=== PATIENT | female | born 1960 | race American Indian/Alaskan Native ===

== ENCOUNTER → 2018-03-23 08:08 | Outpatient (CLI) | payer MEDICARE, MEDICAID, OTHER, SELFPAY ==
[2018-03-23 09:51] LABS: Add Manual Diff / Slide Review NO; Basophils Percent Auto 0.9 % (0-2); Eosinophils Percent Auto 4.1 % (2-4); Hematocrit 40.6 % (36-46); Hemoglobin 13.5 g/dL (12.0-16.0); Lymphocytes Percent Auto 31.4 % (25-40); Mean Corpuscular HGB Conc 33.4 % (30-36); Mean Corpuscular Hemoglobin 28.2 PG (26-34); Mean Corpuscular Volume 84.5 fL (80-100); Monocytes Percent Auto 6.3 % (3-14); Neutrophils Absolute Auto 5100 /uL (3000-5900); Neutrophils Percent Auto 57.3 % (50-75); Platelet Count 309 X10^3/uL (150-400); Red Cell Distribution Width 14.4 % (11.6-14.8); White Blood Cell Count 8.8 X10^3/uL (4.5-11.0)
[2018-03-23 10:13] LABS: Alanine Aminotransferase 24 IU/L (9-52); Albumin 4.1 g/dL (3.5-5.0); Albumin Globulin Ratio 1.1 (1.0-2.8); Alkaline Phosphatase 110 U/L (38-126); Aspartate Aminotransferase 15 IU/L (14-36); BUN Creatinine Ratio 22.5 (6-22); Bilirubin Total 0.9 mg/dL (0.2-1.3); Blood Urea Nitrogen 18 mg/dL (7-17); Calcium 9.3 mg/dL (8.4-10.2); Carbon Dioxide 28 mmol/L (22-32); Chloride 103 mmol/L (98-107); Cholesterol 104 mg/dL (140-199); Estimated Glomerular Filt Rate > 60.0 mL/min (>60); Globulin 3.6 g/dL (1.7-4.1); Glucose 200 mg/dL (70-100); HDL Cholesterol 40 mg/dL (40-60); HEMOLYSIS < 15 (0-50); LDL Cholesterol Calculated 38 mg/dL (<100); Potassium 4.6 mmol/L (3.4-5.1); Sodium 143 mmol/L (137-145); Total Protein 7.7 g/dL (6.3-8.2); Triglycerides 131 mg/dL (35-150)
[2018-03-23 10:15] LABS: Hemoglobin A1C% w Est Avg Glu 9.3 % (4.0-6.0)
== END ==
PROVIDERS: PCP Internal Medicine; Visit Provider Internal Medicine
DX: E11.9 Type 2 diabetes mellitus without complications (principal)
CPT/HCPCS: 36415; 80053; 80061; 83036; 85025

== ENCOUNTER → 2018-04-06 11:52 | Outpatient (CLI) | payer MEDICARE, MEDICAID, OTHER, SELFPAY ==
[2018-04-06 12:02] LABS: Bacteria Urine None Seen; RBC Urine None Seen (0-5/HPF); WBC Urine None Seen (0-5/HPF)
[2018-04-06 12:14] LABS: Appearance Urine UA CLEAR; Bilirubin Urine UA NEGATIVE (NEGATIVE); Color Urine UA YELLOW; Glucose Urine UA 2+ g/dL (Normal); Ketones Urine UA NEGATIVE (NEGATIVE); Leukocyte Esterase Urine UA NEGATIVE (NEGATIVE); Nitrite Urine UA Negative (Negative); Occult Blood Urine UA NEGATIVE (Negative); Protein Urine UA TRACE (Negative); Specific Gravity Urine UA 1.025 (1.000-1.035); Urobilinogen Urine UA 0.2 E.U./dL (0.2)
[2018-04-06 12:17] LABS: Add Manual Diff / Slide Review NO; Basophils Percent Auto 1.1 % (0-2); Hematocrit 41.7 % (36-46); Hemoglobin 13.6 g/dL (12.0-16.0); Lymphocytes Percent Auto 27.6 % (25-40); Mean Corpuscular HGB Conc 32.6 % (30-36); Monocytes Percent Auto 6.7 % (3-14); Neutrophils Absolute Auto 5100 /uL (3000-5900); Neutrophils Percent Auto 60.6 % (50-75); Platelet Count 342 X10^3/uL (150-400); Red Blood Cell Count 4.85 X10^6/uL (4.0-5.2); Red Cell Distribution Width 14.7 % (11.6-14.8); White Blood Cell Count 8.4 X10^3/uL (4.5-11.0)
[2018-04-06 12:20] LABS: Culture Indicated Urine Cult Not Indicated; Urine Comments Microscopic Normal
[2018-04-06 12:24] LABS: BUN Creatinine Ratio 23.3 (6-22); Blood Urea Nitrogen 21 mg/dL (7-17); Calcium 9.2 mg/dL (8.4-10.2); Carbon Dioxide 24 mmol/L (22-32); Chloride 104 mmol/L (98-107); Estimated Glomerular Filt Rate > 60.0 mL/min (>60); Glucose 145 mg/dL (70-100); HEMOLYSIS 44 (0-50); Potassium 4.9 mmol/L (3.4-5.1); Sodium 142 mmol/L (137-145)
[2018-04-06 12:41] LABS: Hemoglobin A1C% w Est Avg Glu 8.9 % (4.0-6.0)
== END ==
PROVIDERS: Family Provider Family Medicine; PCP Internal Medicine; Visit Provider Orthopaedic Surgery
DX: R73.09 Other abnormal glucose (principal); N39.9 Disorder of urinary system, unspecified; Z01.812 Encounter for preprocedural laboratory examination; Z01.818 Encounter for other preprocedural examination
CPT/HCPCS: 36415; 80048; 81001; 83036; 85025; 93005

== ENCOUNTER → 2018-07-06 14:18 | Outpatient (CLI) | payer MEDICARE, MEDICAID, OTHER, SELFPAY ==
[2018-07-06 14:55] LABS: Alanine Aminotransferase 23 IU/L (9-52); Albumin 4.2 g/dL (3.5-5.0); Albumin Globulin Ratio 1.3 (1.0-2.8); Alkaline Phosphatase 103 U/L (38-126); Aspartate Aminotransferase 16 IU/L (14-36); BUN Creatinine Ratio 16.7 (6-22); Bilirubin Total 0.7 mg/dL (0.2-1.3); Blood Urea Nitrogen 20 mg/dL (7-17); Calcium 9.2 mg/dL (8.4-10.2); Carbon Dioxide 24 mmol/L (22-32); Chloride 105 mmol/L (98-107); Cholesterol 157 mg/dL (140-199); Estimated Glomerular Filt Rate 46.1 mL/min (>60); Globulin 3.3 g/dL (1.7-4.1); Glucose 339 mg/dL (70-100); HDL Cholesterol 42 mg/dL (40-60); HEMOLYSIS < 15 (0-50); LDL Cholesterol Calculated 66 mg/dL (<100); Sodium 143 mmol/L (137-145); Total Protein 7.5 g/dL (6.3-8.2); Triglycerides 243 mg/dL (35-150)
== END ==
PROVIDERS: Visit Provider Internal Medicine
DX: E78.00 Pure hypercholesterolemia, unspecified (principal); I10 Essential (primary) hypertension; E11.65 Type 2 diabetes mellitus with hyperglycemia
CPT/HCPCS: 36415; 80053; 80061; 83036

== ENCOUNTER → 2018-07-27 12:33 | Outpatient (CLI) | payer MEDICARE, MEDICAID, OTHER, SELFPAY ==
[2018-07-27 12:44] LABS: Bacteria Urine None Seen; RBC Urine None Seen (0-5/HPF)
[2018-07-27 13:05] LABS: Add Manual Diff / Slide Review NO; Appearance Urine UA CLEAR; Basophils Percent Auto 0.9 % (0-2); Bilirubin Urine UA NEGATIVE (NEGATIVE); Color Urine UA YELLOW; Eosinophils Percent Auto 4.4 % (2-4); Glucose Urine UA 3+ g/dL (Normal); Hematocrit 43.7 % (36-46); Hemoglobin 14.3 g/dL (12.0-16.0); Ketones Urine UA NEGATIVE (NEGATIVE); Leukocyte Esterase Urine UA NEGATIVE (NEGATIVE); Lymphocytes Percent Auto 27.6 % (25-40); Mean Corpuscular HGB Conc 32.7 % (30-36); Mean Corpuscular Hemoglobin 28.7 PG (26-34); Mean Corpuscular Volume 87.7 fL (80-100); Neutrophils Absolute Auto 5200 /uL (3000-5900); Neutrophils Percent Auto 61.1 % (50-75); Nitrite Urine UA Negative (Negative); Occult Blood Urine UA NEGATIVE (Negative); Platelet Count 314 X10^3/uL (150-400); Protein Urine UA NEGATIVE (Negative); Red Blood Cell Count 4.99 X10^6/uL (4.0-5.2); Red Cell Distribution Width 14.2 % (11.6-14.8); Specific Gravity Urine UA 1.015 (1.000-1.035); Urobilinogen Urine UA 0.2 E.U./dL (0.2); White Blood Cell Count 8.5 X10^3/uL (4.5-11.0)
[2018-07-27 13:38] LABS: Squamous Epithelial Cell Urine 0-1 /HPF; WBC Urine 1-5/HPF (0-5/HPF)
[2018-07-27 13:39] LABS: Culture Indicated Urine Cult Not Indicated
[2018-07-27 14:35] LABS: BUN Creatinine Ratio 14.5 (6-22); Blood Urea Nitrogen 16 mg/dL (7-17); Calcium 9.3 mg/dL (8.4-10.2); Carbon Dioxide 25 mmol/L (22-32); Chloride 104 mmol/L (98-107); Glucose 335 mg/dL (70-100); HEMOLYSIS < 15 (0-50); Potassium 4.5 mmol/L (3.4-5.1); Sodium 142 mmol/L (137-145)
== END ==
PROVIDERS: PCP Internal Medicine; Visit Provider Orthopaedic Surgery
DX: Z01.818 Encounter for other preprocedural examination (principal); Z01.812 Encounter for preprocedural laboratory examination; N39.9 Disorder of urinary system, unspecified; R73.09 Other abnormal glucose
CPT/HCPCS: 36415; 80048; 81001; 85025

== ENCOUNTER 2018-08-01 15:31 | Inpatient (IN) | payer MEDICARE, MEDICAID, OTHER, SELFPAY ==
[2018-07-16 09:22] VITALS: BMI 49.6
[2018-07-31] VITALS (19 sets, daily range): BP systolic 93–146; BP diastolic 55–75; PULSE 83–111; RESP 16–24; TEMP 36.1–37.6; O2SAT 93–98; BMI 49.6
--- NOTE | 2018-07-31 06:00 | DI.RAD.S_ITS ---
PROCEDURE: XR KNEE LT 1TO2V INDICATIONS: prosthesis placement TECHNIQUE: 2 view(s) of the knee acquired. COMPARISON: [facility], MR, KNEE WITHOUT CONTRAST, 01/21/2018, 12:15. [facility], CR, XR KNEE STANDING BILATERAL, 01/09/2018, 12:41. FINDINGS: Bones: Patient is status post knee joint arthroplasty. Hardware components are in expected positions. Visualized bony structures are intact. Soft tissues: Overlying postoperative changes are noted. IMPRESSION: Expected position status post left TKA. Dictated by: Rob Estrella RRA Interpreted: Jazlyn Son MD on 07/31/2018 at 13:12 Approved by: Jazlyn Son MD, PhD on 07/31/2018 at 14:48
[2018-07-31] MEDS: LACTATED RINGERS 1,000 ML 42 ML IV ×2 (06:55→10:11)
[2018-07-31] MEDS: VANCOMYCIN 1,000 MG/200 ML FROZ.PIGGY 200 MG IV (07:00)
[2018-07-31] MEDS: ACETAMINOPHEN 325 MG TABLET 975 MG PO ×3 (07:18→21:26)
[2018-07-31] MEDS: PREGABALIN 75 MG CAPSULE PO (07:19)
[2018-07-31] MEDS: CELECOXIB 200 MG CAPSULE PO (07:19)
[2018-07-31] MEDS: INSULIN REGULAR 100 UNIT/ML 3 ML VIAL SUBCUT ×2 (07:45→09:25)
[2018-07-31] MEDS: CEFAZOLIN 2 GM/100 ML FROZ.PIGGY IV ×3 (07:55→23:59)
--- NOTE | 2018-07-31 08:40 | SUR.OPER ---
Supine on padded OR bed. Pillow under head, padded ramp under torso per anesthesia. Bilateral moni secured on padded armboards with extra foam positioners under arms<90 degree abduction. Safety belt across torso. Non-operative leg secured with tape over blanket over lower leg. Tape to secure abdomen away from operative site per surgeon. Operative leg secured in DeMayo/Jesse positioner. Foam padded brace at thigh of operative leg.
[2018-07-31] MEDS: BUPIVACAINE 0.25% W/ EPI VIAL 50 ML INJ (08:50)
[2018-07-31] MEDS: BUPIVACAINE LIPOSOME 266 MG/20 ML VIAL INJ (08:51)
[2018-07-31] MEDS: POVIDONE-IODINE 15 ML, SODIUM CHLORIDE 0.9% 250 ML TOP (08:51)
[2018-07-31] MEDS: HYDROMORPHONE 2 MG INJ 0.5 MG IV ×4 (10:46→11:25)
[2018-07-31] MEDS: fentaNYL 100 MCG/2 ML INJ 50 MCG IV ×2 (11:00→11:45)
[2018-07-31] MEDS: INSULIN ASPART 100 UNIT/ML 10ML VIAL SUBCUT (11:30)
--- NOTE | 2018-07-31 12:03 | SUR.PHASEI ---
REPORT CALLED TO RN ON FLOOR, PT SLEEPING QUIETLY, ICE PACK TO KNEE, LEG ELEVATED. PT TO ROOM HAND OFF OF CARE TO ROSALINO SANTAMARIA.
[2018-07-31] MEDS: LACTATED RINGERS 1,000 ML 125 ML IV ×2 (12:34→21:26)
--- NOTE | 2018-07-31 13:32 | PC.NURSE ---
Sophia was re'cvd post-op at 1210. She awoke briefly to state her pain was 10/10, then immediately fell back asleep. VSS, with note that she has remained slightly tachcardic (rate 111) consistently. O2 sat 97% on 3L/nc. Resp. unlabored and even. IV infusing. Her hemovac drain was unclamped at 1300 per orders. It is draining scant amt. bloody drng. Picco device intact with flashing green light. Willie bndg. L knee clean/dry/intact. Son Pepito at bedside supportive.
[2018-07-31] MEDS: OXYCODONE IR 5 MG TABLET PO ×2 (13:44→20:31)
--- NOTE | 2018-07-31 13:49 | PM.OP.1 ---
Operative Date/Time/Diagnoses Date of procedure: 07/31/18 Time of procedure: 08:10 Pre-op diagnosis: Severe left knee osteoarthritis Post-op diagnosis: same Procedure & Clinicians Procedure: Left total knee arthroplasty Same procedure as scheduled: Yes Indications: The patient has had progressively worsening left knee pain with radiographic changes consistent with arthritis. Non-operative management has failed and the patient has requested total knee replacement. The risks, benefits and alternatives to surgery were discussed with the patient prior to proceeding. Risks discussed included, but were not limited to, failure to relieve pain, stiffness, infection, nerve damage, deep venous thrombosis, pulmonary embolism, stroke, coma, heart attack, permanent paralysis and , as well as the potential need for eventual revision of the prosthetic. Surgeon: Noni Solo Assessment Analyst: Stephanie Riley Anesthesia Type: General Operative Notes Findings: Severe left knee osteoarthritis, good stability Closure Type: primary Specimen(s): none sent Implants & Drains: Solo and Nephew Luci BCS2 femur 4, tibia 3, +10 poly, 32x 7.5 patella Applied: drain(s) Estimated Blood Loss (mL): 250 Blood products transfused: none Tourniquet time (min): 92 Procedure in detail: The patient was seen in the pre-operative area, where the patient identified the left knee as the operative site and this was marked with my initials. The patient received pre-operative antibiotics, and was taken to the operating room and placed on the operative table in the supine position. After satisfactory anesthesia, a full time babysitter out was performed. The right leg was encircled with a tourniquet about the proximal thigh, and the leg was prepared from the toes to the tourniquet with ChloroPrep in the usual fashion and draped through sterile drapes. The leg was elevated and exsanguinated with Eschmark bandage and the tourniquet inflated to [250] mmHg pressure. The knee was approached through an approximately 18 cm incision centered over the patella and carried into the knee through a medial parapatellar arthrotomy. A portion of the medial and lateral meniscus was resected. Soft tissue was carefully mobilized around the patella the patella was measured with a caliper. Bone was resected from the patella and the patellar height was reconstituted with up an appropriate sized patellar component. A cover was then placed on the patella. A small amount of additional medial and lateral meniscus was resected. The visionare guide fit well to the distal femur. It looked like an appropriate distal femoral cut and the cut was made without difficulty. The rotation was assessed and the appropriate size femoral guide was placed on the distal femur and finishing cuts were made. There was no evidence of notching. The anterior, posterior and chamfer cuts were then made. The posterior osteophytes and soft tissues were then removed. The posterior capsule was injected with part of a mixture of 60 ml 0.25% Marcaine mixed with 20 ml Exparel for post operative pain control. The remainder of this mixture was injected into the capsule and subcutaneous tissues during cement curing. The tibia was prepared and the visionaire guide fit well to the distal tibia. The rotation was assessed. The patient was placed in extension residual medial and lateral meniscus as well as any residual bone was carefully resected. [No] additional tibia was resected. Hemostasis was achieved especially posteriorly. Additional local was injected into the posterior capsule. The extension gap was assessed and additional releases for gap balancing were performed as necessary. It was checked with the gap culturist. The femoral component was trial was placed and the notch was finished. Trial tibial and femoral components were then placed and the knee placed through a range of motion. Range of motion was [0-130], with good stability throughout the range. The trials were then removed, and the tibia was finished. The bone was prepared with pulsatile lavage, and dried with a sponge. Cement was applied and the final prosthetics placed. Excess cement was removed during and after cement curing. A brief Betadine soak was performed. After confirming there was no extruded cement posteriorly, the final tibial insert was placed. The knee was copiously irrigated and the tourniquet deflated. Hemostasis was obtained with the [Aquamantys system]. A drain was placed and brought out superolaterally. The capsule was closed with interrupted # 1 black braided suture. The subcutaneous layer was closed with barbed sutures, and the skin with a running 3-0 V-Lock suture and Surgical glue. An Aquacel Ag dressing was applied and the patient was taken to recovery having tolerated the procedure well. Complications: none Condition: stable Disposition: Acute Care Plan for aftercare: The patient will be maintained on a standard total knee replacement protocol with weight bearing as tolerated. The patient will receive aspirin and sequential compression devices for DVT prophylaxis. The patient will be discharged home when safe for the home environment.
--- NOTE | 2018-07-31 16:05 | PT.IPTN ---
Addendum entered and electronically signed by Marilyn Ortiz PT 07/31/18 16:31: this is to certify that I have reviewed this documentation and plan of care. Original Note: Current Diagnoses Unilateral primary osteoarthritis, left knee (07/31/18) Surgery Performed Operation Date: 07/31/18 07:45 Actual Procedures p Left Total Knee Arthroplasty(Left) - Noni Solo MD Physical Therapy Treatment Note M3 PT-IP Subjective Start: 07/31/18 15:25 Freq: NEEDED Status: Active Protocol: Document 07/31/18 15:27 (Rec: 07/31/18 15:28 [id number]) Subjective Physical Therapy Visit Type Notes Pt refuses PT today. Just too much pain per pt. informed pt that PT will come tomorrow morning. - Bhargav Solo, SPT
[2018-07-31] MEDS: hydrOXYzine pamoate 25 MG CAPSULE PO (16:13)
[2018-07-31] MEDS: IBUPROFEN 600 MG TABLET PO (16:14)
[2018-07-31] MEDS: INSULIN ASPART 100 UNIT/ML INSULN PEN SUBCUT ×2 (16:18→21:30)
[2018-07-31] MEDS: METFORMIN HCL 500 MG TABLET 1000 MG PO (21:26)
[2018-07-31] MEDS: ASPIRIN EC 81 MG TABLET PO (21:26)
[2018-07-31] MEDS: DOCUSATE 100 MG CAPSULE PO (21:26)
[2018-07-31] MEDS: ATORVASTATIN 20 MG TABLET PO (21:26)
[2018-08-01 00:12] VITALS: BP 137/69; PULSE 97; RESP 16; TEMP 36.9; O2SAT 96
--- NOTE | 2018-08-01 00:31 | PC.NURSE ---
Addendum entered by Timothy Artis R.N. 08/01/18 03:50: 0345: Pt states her pain level is down to 8/10. She is more relaxed and not agitated. Medicated for pain with Dilaudid 0.5mg IV at this time. Original Note: Addendum entered by Timothy Artis R.N. 08/01/18 01:45: 0150: Fresh ice to lt knee. Original Note: Addendum entered by Timothy Artis R.N. 08/01/18 01:44: 0145: Awake, assisted up to bedside commode. Pt anxious and unsteady on her feet. Voided large amt clear yellow urine. Medicated for pain with Oxycodone 5mg, Ibuprophen 600mg, and Vistaril 25mg, po. Original Note: Network Technology Instructor Note: 0000: Pt sleeping; respirations unlabored. SCDs on. IV in place in rt wrist, with LR infusing at 125cc/hr, and SL in lt hand. Dressing/jl wrap to lt knee cdi.
[2018-08-01] MEDS: IBUPROFEN 600 MG TABLET PO ×2 (01:40→10:03)
[2018-08-01] MEDS: hydrOXYzine pamoate 25 MG CAPSULE PO ×2 (01:40→08:05)
[2018-08-01] MEDS: OXYCODONE IR 5 MG TABLET PO (01:40)
[2018-08-01] MEDS: HYDROMORPHONE 0.5 MG INJ IV ×5 (02:35→12:51)
[2018-08-01 05:45] LABS: Hematocrit 36.8 % (36-46)
[2018-08-01] MEDS: LACTATED RINGERS 1,000 ML 125 ML IV (06:13)
--- NOTE | 2018-08-01 07:12 | PM.PNPO.1 ---
Subjective Date Patient Seen: 08/01/18 Time Patient Seen: 07:12 Interval history: Post op day 1 status post L total knee arthroplasty with Dr. Solo. Patient reports that her pain is a 9/10 with IV Dilaudid 0.5mg, 5mg oxycodone and 25mg Vistaril. She reports I feel like I've been hit by a truck. She reports experiencing severe muscle spasms in her L LE and body aches throughout since midnight. She reports the spasms have now resolved, but still having body aches and severe pain. She refused PT yesterday due to severe pain. She denies any fever, chills, SOB, chest pain, nausea or vomiting. Exam Vital Signs (past 8 hours): - 08/01/18 00:12 Temperature 98.4 F Pulse Rate 97 H Respiratory Rate 16 Blood Pressure 137/69 Pulse Oximetry 96 Oxygen Delivery Method Nasal Cannula Oxygen Flow Rate 3 Narrative Exam Narrative: Patient is laying in bed with no signs of acute distress. Dorsalis pedis and radial pulses 2+ and symmetric. Sensation to light touch intact in LE bilaterally. L knee dressing CDI. L LE hemovac intact with mild output. Muscle strength in dorsiflexion, plantarflexion and hydraulic controls technician adequate bilaterally. L calf is tender to palpation, otherwise calfs are soft and compressible bilaterally. Objective Labs Result Diagrams: 08/01/18 05:36 Labs: Laboratory Results - last 24 hr 08/01/18 05:36 Hgb 12.0 Hct 36.8 Assessment & Plan Post-op Postoperative Procedures Operation Date: 07/31/18 07:45 Actual Procedures Side Surgeon p Left Total Knee Arthroplasty Left Noni Solo MD Postoperative day: 1 Postoperative plan: routine post-op care Postoperative plan narrative: Start PT. Maintain on standard total knee replacement protocol with weight bearing as tolerated with PT. Continue DVT prophylaxis. Start on 10mg of oxycodone for pain. Time Spent With Patient less than 15 minutes Quality VTE Deep Vein Thrombosis/Pulmonary Embolism Present on Admission: No
--- NOTE | 2018-08-01 07:23 | P.PN_ITS ---
Subjective Date Patient Seen: 08/01/18 Time Patient Seen: 07:12 Interval history: Post op day 1 status post L total knee arthroplasty with Dr. Solo. Patient reports that her pain is a 9/10 with IV Dilaudid 0.5mg, 5mg oxycodone and 25mg Vistaril. She reports I feel like I've been hit by a truck . She reports experiencing severe muscle spasms in her L LE and body aches throughout since midnight. She reports the spasms have now resolved, but still having body aches and severe pain. She refused PT yesterday due to severe pain. She denies any fever, chills, SOB, chest pain, nausea or vomiting. Exam Vital Signs (past 8 hours): - 08/01/18 00:12 Temperature 98.4 F Pulse Rate 97 H Respiratory Rate 16 Blood Pressure 137/69 Pulse Oximetry 96 Oxygen Delivery Method Nasal Cannula Oxygen Flow Rate 3 Narrative Exam Narrative: Patient is laying in bed with no signs of acute distress. Dorsalis pedis and radial pulses 2+ and symmetric. Sensation to light touch intact in LE bilaterally. L knee dressing CDI. L LE hemovac intact with mild output. Muscle strength in dorsiflexion, plantarflexion and steward/stewardess night adequate bilaterally. L calf is tender to palpation, otherwise calfs are soft and compressible bilaterally. Objective Labs Result Diagrams: 08/01/18 05:36 Labs: Laboratory Results - last 24 hr 08/01/18 05:36 Hgb 12.0 Hct 36.8 Assessment & Plan Post-op Postoperative Procedures Operation Date: 07/31/18 07:45 Actual Procedures Side Surgeon p Left Total Knee Arthroplasty Left Noni Solo MD Postoperative day: 1 Postoperative plan: routine post-op care Postoperative plan narrative: Start PT. Maintain on standard total knee replacement protocol with weight bearing as tolerated with PT. Continue DVT prophylaxis. Start on 10mg of oxycodone for pain. Time Spent With Patient less than 15 minutes Quality VTE Deep Vein Thrombosis/Pulmonary Embolism Present on Admission: No
[2018-08-01 07:40] VITALS: BP 134/70; PULSE 83; RESP 96; TEMP 36.7; O2SAT 96
[2018-08-01 08:00] VITALS: O2SAT 96
[2018-08-01] MEDS: ACETAMINOPHEN 325 MG TABLET 975 MG PO ×3 (08:01→21:27)
[2018-08-01] MEDS: OXYCODONE IR 10 MG TABLET PO (08:01)
[2018-08-01] MEDS: ASPIRIN EC 81 MG TABLET PO ×2 (08:02→21:28)
[2018-08-01] MEDS: METFORMIN HCL 500 MG TABLET 1000 MG PO ×2 (08:02→21:28)
[2018-08-01] MEDS: LISINOPRIL 20 MG TABLET PO (08:02)
[2018-08-01] MEDS: DOCUSATE 100 MG CAPSULE PO (08:02)
[2018-08-01] MEDS: INSULIN ASPART 100 UNIT/ML INSULN PEN SUBCUT ×4 (09:59→21:28)
[2018-08-01 13:40] VITALS: BP 149/70; PULSE 91; RESP 20; O2SAT 96
--- NOTE | 2018-08-01 14:10 | PT.IIE ---
Current Diagnoses Unilateral primary osteoarthritis, left knee (07/31/18) Surgery Performed Operation Date: 07/31/18 07:45 Actual Procedures p Left Total Knee Arthroplasty(Left) - Noni Solo MD Surgical History (Last Updated 07/16/18 @ 09:33 by Luz Madera, RN) History of ankle surgery (Acute) History of delivery (Acute) Hx of hernia repair (Acute) S/P left oophorectomy (Acute) S/P tonsillectomy and adenoidectomy (Acute) Medical History (Last Updated 07/16/18 @ 09:33 by Luz Madera RN) Chronic back pain (Acute) History of GI bleed (Acute) History of migraine (Acute) Back pain (Chronic) DDD (degenerative disc disease), lumbar (Chronic) Diabetes mellitus (Chronic) Eczema (Chronic) Hyperlipidemia (Chronic) Hypertension (Chronic) Left knee pain (Chronic) Left shoulder pain (Chronic) Morbid obesity (Chronic) Osteoarthritis (Chronic) Postmenopausal (Chronic) Physical Therapy Inpatient Evaluation/Re-Eval M1 PT/OT-IP Prior Functional Status Start: 07/31/18 15:25 Freq: NEEDED Status: Active Protocol: Document 08/01/18 14:10 [facility] (Rec: 08/01/18 14:27 [facility] [id number]) Medical Review Prior Functional Status Medical History Reviewed Yes Diet/Fluid Consistency Regular Mobility and Gait indep. without device but occasionally using 4WW Activities of Daily Living and IADL's indep. Social History Household Members children Living Arrangements Apartment/Condo Number of Floors (Floors) One Floor Number of Stairs To Enter/Railing? no steps to enter/exit Home Equipment Front Wheel Walker Additional Social History Comment pt reports that her mother also lives in [place], and has a handicap accessible home she may stay in if her mother goes to SNF herself ( current @ [facility]). M2 PT-IP Current Condition Start: 07/31/18 15:25 Freq: NEEDED Status: Active Protocol: Document 08/01/18 14:10 RCC (Rec: 08/01/18 14:27 [facility] [id number]) Physical Therapy Current Condition Current Condition Evaluation Date 08/01/18 Treatment Diagnosis L TKA 07/31/18, impaired gait and mobility Onset Date 07/31/18 Weight Bearing Status Weight Bearing Status Weight Bear as Tolerated M3 PT-IP Subjective Start: 07/31/18 15:25 Freq: NEEDED Status: Active Protocol: Document 08/01/18 14:10 RCC (Rec: 08/01/18 14:27 [facility] [email or web address]) Subjective Physical Therapy Visit Type Type Initial Evaluation Visit Start Time 13:39 Visit Stop Time 14:10 Total Visit Minutes 31 Number of LABOR REPRESENTATIVE Visits 0 Physical Therapy Visit Comments Patient Comments pt agreeable to get OOB, wants to use BSC. Patient Goals decrease pain Therapy Pain Assessment Pain When Pain Assessed At Rest Location Left Knee Intensity 9 Scale Used Numeric (1 - 10) M4 PT-IP Mobility and Gait Start: 07/31/18 15:25 Freq: NEEDED Status: Active Protocol: Document 08/01/18 14:10 RCC (Rec: 08/01/18 14:27 [facility] [email or web address]) PT-Bed Mobility Assessment Supine to Sit Supine to Sit Moderate Assistance 1 Person Assistance Bedrails Sit to Supine Sit to Supine Minimal Assistance 1 Person Assistance Bedrails Scooting Scooting to Edge of Bed Minimal Assistance PT-Transfer Assessment Sit to and From Stand Sit to and from Stand Minimal Assistance 1 Person Assistance Equipment Transfer Assistive Device Gait Belt Front Wheeled Walker Transfers Transfer Destination Bed Toilet Transfer Technique Stand Step Pivot Transfer Ability Level of Assist Contact Guard Assistance Gait Assessment Gait Gait Assistance Required: Contact Guard Assist Distance (Feet) 10 Assistive Devices Assistive Device Gait Belt Front Wheeled Walker Gait Deviations General Gait Pattern Antalgic Decreased Stride Length Decreased Feet Clearance Flexed Trunk Step-to Gait Wide Based Gait Factors Limiting Gait Function Factors Limiting Gait Function Decreased Activity Tolerance Decreased Strength Limited Range of Motion Pain Comments Gait Comments Gait x10 ft in room with FWW, transfer to [facility] (had BM, APRON MAN assisted with toileting care), transfer back to bed. PT-Balance Assessment Sitting Balance and Reactions Static Sitting Balance Ability Good Dynamic Sitting Balance Ability Good Standing Balance and Reactions Static Standing Balance Ability Good Dynamic Standing Balance Ability Fair Device Used FWW M5 PT-IP Objective Assessments Start: 07/31/18 15:25 Freq: NEEDED Status: Active Protocol: Document 08/01/18 14:10 RCC (Rec: 08/01/18 14:27 [facility] [email or web address]) Orientation Orientation/Cognition Level of Alertness Alert Orientation Name Age Birthday Month Date Year Day of Week Place Situation Language Function Ability No Deficits Noted Safety Awareness Understands Safety Issues Memory Description No Deficits Noted Gross Range of Motion Lower Extremity ROM Assessment Left Impaired Impairments 5-75 degrees L knee Strength Lower Extremity Strength Assessment Left Impaired Hip flexion (unable to perform indep. SLR due to pain) Knee flexion 3/5, extension 3/5 on the L M6 PT-IP Treatment Start: 07/31/18 15:25 Freq: NEEDED Status: Active Protocol: Document 08/01/18 14:10 RCC (Rec: 08/01/18 14:27 RCC [email or web address]) Physical Therapy Treatment Exercises Exercises Ankle Pumps Quad Sets Heel Slides Education Education Provided Precautions Weight Bearing Status Post-Op Packet M7 PT-IP Assessment and Plan Start: 07/31/18 15:25 Freq: NEEDED Status: Active Protocol: Document 08/01/18 14:10 RCC (Rec: 08/01/18 14:27 RCC [email or web address]) PT Summary Assessment and Plan Potential Rehabilitation Potential Good Status of Condition at Evaluation Evolving Summary Impairments Pain ROM Strength Balance Bed Mobility Transfers Gait Activity Tolerance Assessment Summary POD #1 L TKA. Attempted PT multiple times this date, but pt with uncontrollable diarrhea as well as pain level extremely high. She was able to get OOB, ambulate 10 ft and transfer to/from the BS with 1 assist. She does require manual assistance to control her LLE due to pain and weakness. She was a very compliant and willing patient, motivated to mobilize but notes that pain is too high to perform more mobility today. Expect pt to continue to progress, pain control needs to be improved, and expect slower than initially expected recovery due to pain and other co-morbidities. Pt will need assistance if she is to go home as well as a w/c. She cannot ambulate safe household distances yet, and may require SNF rehabilitation upon d/c if she is unable to do so. Goals Bed Mobility Goal Standby Assistance Transfer Goal Standby Assistance Gait Goal Standby Assistance Gait Distance 150 Frequency of Treatment Frequency Of Treatment Twice a Day Treatment Plan Physical Therapy Treatment Plan Bed Mobility Training Transfer Training Gait Training Therapeutic Exercise Balance Retraining Post Op Education Discharge Planning Hot or Cold Pack Neuromuscular Re-ed Recommendations To Nursing Amount of Assist Needed 2 Person Assist Discharge Recommendations PT Discharge Recommendations SNF Rehab Other Discharge Recommendations SNF vs. home with assist, needs further assessment. Equipment Needed for Home Before manual w/c, FWW, BSC if to go Discharge home
[2018-08-01] MEDS: hydrOXYzine pamoate 25 MG CAPSULE 50 MG PO ×2 (14:14→21:32)
[2018-08-01] MEDS: HYDROMORPHONE 2 MG TABLET PO ×3 (14:14→19:29)
[2018-08-01 15:30] VITALS: BP 136/60; PULSE 96; RESP 18; TEMP 36.8; O2SAT 100
--- NOTE | 2018-08-01 16:03 | PC.NURSE ---
Patient having pain management issues throughout the shift, along with some anxiety. Tearful at times. Attempted increased dose of oxycondone 10mg as ordered by NELY MCKAY, without relief. Patient then started having loose stools, using bedpan, which she says increased her pain to move around. Frequent assistance with repositioning and new ice packs applied. Used IV dilaudid as ordered x 2, without effect per patient. Patient complaining of spasms and tightening. 1320 Dr. Jackson notified of patient continued complaints, order for dilaudid po prn received along with increased dosing of vistaril. Patient reassured frequently, and encouraged to use alternative relaxation techniques, ankle waves, and distraction along with the ice and medications. SLIV, tolerating meals. Declined to get up with P.T. today due to pain. Hemovac in place, compressed, draining serosangenous fluid. HUAN dressing intact with YURIY wrap in place. Bed alarm on for safety, with call light within reach.
--- NOTE | 2018-08-01 16:32 | CM.IDA ---
Discharge Planning/Care Management CM Discharge Assessment Start: 08/01/18 16:27 Freq: Status: Active Protocol: Document 08/01/18 16:28 CATHIE (Rec: 08/01/18 16:32 CATHIE [id number]) Discharge Planning Assessment Assigned [employer] Operator RYANNE Vargas DPOA/Assigned Designee Name Krystle Tong, dtr/Pepito Maya, son Contact Information [phone], Advance Directives? No: Declines further information History Provided By Patient Prior Living Arrangements Apartment/Condo Household Members children Type of transporation used prior to Relies on Others admit Independent with ADL's Yes Is patient alert and oriented? Yes Barriers to Discharge Yes Comment Pt may require SNF per PT, pt' s mom is at [facility] and pt was initially planning on DCing home to her mother's handicap friendly home but may not be able to do that now. Assess for SNF. Medicare/Medicaid. Additional Comment Likely need SNF. Review Status In Process Pre-Anesthesia Assessment Start: 07/13/18 13:45 Freq: Status: Complete Protocol: Document 07/16/18 09:22 [email or web address] (Rec: 07/13/18 13:54 COREYJ [id number])
[2018-08-01 19:49] VITALS: BP 143/73; PULSE 92; RESP 18; TEMP 37.1; O2SAT 98
[2018-08-01] MEDS: ATORVASTATIN 20 MG TABLET PO (21:28)
--- NOTE | 2018-08-01 22:13 | PC.NURSE ---
1500- assumed care of pt,. pt crying and lashing out. pt has family in room. Pt asking for pain medicine however it was just administered. discussed some non medicating pain reduction options and pt tried them. Pt lays in bed, refusing to get oob for toileting. Pt compliant but is very anxious. Pt has great bed mobility and is able to pull self up in ,bed one pillow under knee and ice packs applied. 1999- pt medicated. has been able to doze of and sleep a bit. did receive insulin. Pt compliant. given prns. will continue to monitor. 2099- jl wrap had blood on it. rewrapped hvc drain tubing pulled at dressing and reinforced. pt tolerated poorly. will continue to monitor. bed alarm on.
[2018-08-02] VITALS (7 sets, daily range): BP systolic 122–147; BP diastolic 63–74; PULSE 92–102; RESP 15–24; TEMP 36.4–36.9; O2SAT 92–96
[2018-08-02] MEDS: HYDROMORPHONE 2 MG TABLET PO ×6 (00:37→18:09)
[2018-08-02] MEDS: hydrOXYzine pamoate 25 MG CAPSULE 50 MG PO ×3 (04:03→18:14)
[2018-08-02] MEDS: IBUPROFEN 600 MG TABLET PO ×2 (07:43→18:14)
[2018-08-02] MEDS: LISINOPRIL 20 MG TABLET PO (08:03)
[2018-08-02] MEDS: METFORMIN HCL 500 MG TABLET 1000 MG PO ×2 (08:03→20:28)
[2018-08-02] MEDS: ASPIRIN EC 81 MG TABLET PO ×2 (08:03→20:28)
[2018-08-02] MEDS: ACETAMINOPHEN 325 MG TABLET 975 MG PO ×3 (08:03→20:27)
[2018-08-02] MEDS: INSULIN ASPART 100 UNIT/ML INSULN PEN SUBCUT ×4 (08:07→20:28)
--- NOTE | 2018-08-02 10:19 | PM.PNPO.1 ---
Subjective Date Patient Seen: 08/02/18 Time Patient Seen: 10:20 Interval history: The patient reports significant pain control difficulties. Minimal progress was made with physical therapy yesterday. Exam Vital Signs (past 8 hours): - 08/02/18 04:08 08/02/18 08:00 08/02/18 08:03 Temperature 98.2 F 98.4 F Pulse Rate 102 H 98 H 98 H Respiratory Rate 21 20 Blood Pressure 139/71 147/74 H 147/74 H Pulse Oximetry 93 94 Oxygen Delivery Method Room Air Oxygen Flow Rate 0 Narrative Exam Narrative: Left lower extremity wound is dressed with no significant drainage on the bandage. Calf is soft. Light touch and motion are intact in the left lower extremity. Objective Labs Result Diagrams: 08/01/18 05:36 Assessment & Plan Post-op Postoperative Procedures Operation Date: 07/31/18 07:45 Actual Procedures Side Surgeon p Left Total Knee Arthroplasty Left Noni Solo MD Postoperative day: 2 Postoperative status: doing well and marginal pain control Postoperative status narrative: The patient is postoperative day 2 status post left total knee replacement. She has had marginal pain control. She has a mild acute post hemorrhagic anemia. This is not unanticipated with a total knee replacement. Postoperative plan: routine post-op care and ambulate Postoperative plan narrative: We will discontinue her drain today. We will continue physical therapy. We had a discussion today regarding postoperative pain after knee replacement. I have reassured her that the pain she is experiencing is normal and that she need not become anxious about it. We have talked about effective pain management strategies. Time Spent With Patient less than 15 minutes Quality VTE Deep Vein Thrombosis/Pulmonary Embolism Present on Admission: No
--- NOTE | 2018-08-02 11:58 | PT.IPTN ---
Current Diagnoses Unilateral primary osteoarthritis, left knee (07/31/18) Surgery Performed Operation Date: 07/31/18 07:45 Actual Procedures p Left Total Knee Arthroplasty(Left) - Noni Solo MD Physical Therapy Treatment Note M2 PT-IP Current Condition Start: 07/31/18 15:25 Freq: NEEDED Status: Active Protocol: Document 08/02/18 11:58 [facility] (Rec: 08/02/18 12:05 [facility] [id number]) Physical Therapy Current Condition Current Condition Evaluation Date 08/01/18 Treatment Diagnosis L TKA 07/31/18, impaired gait and mobility Onset Date 07/31/18 Weight Bearing Status Weight Bearing Status Weight Bear as Tolerated M3 PT-IP Subjective Start: 07/31/18 15:25 Freq: NEEDED Status: Active Protocol: Document 08/02/18 11:58 [facility] (Rec: 08/02/18 12:05 [facility] [id number]) Subjective Physical Therapy Visit Type Type Treatment Note Visit Start Time 11:35 Visit Stop Time 11:58 Total Visit Minutes 23 Number of FACEPIECE LINE SUPERVISOR Visits 0 Physical Therapy Visit Comments Patient Comments Pt notes she was OOB earlier today to chair for 2 hrs, pain is still very high Therapy Pain Assessment Location Left Knee Intensity 8 Scale Used Numeric (1 - 10) M4 PT-IP Mobility and Gait Start: 07/31/18 15:25 Freq: NEEDED Status: Active Protocol: Document 08/02/18 11:58 [facility] (Rec: 08/02/18 12:05 [facility] [id number]) PT-Bed Mobility Assessment Supine to Sit Supine to Sit Moderate Assistance 1 Person Assistance Head of Bed Elevated Bedrails Sit to Supine Sit to Supine Minimal Assistance 1 Person Assistance Bedrails PT-Transfer Assessment Sit to and From Stand Sit to and from Stand Contact Guard Assistance 1 Person Assistance Equipment Transfer Assistive Device Gait Belt Front Wheeled Walker Transfers Transfer Destination Bed Transfer Technique Stand Step Pivot Transfer Ability Level of Assist Contact Guard Assistance Gait Assessment Gait Gait Assistance Required: Contact Guard Assist Distance (Feet) 15 Assistive Devices Assistive Device Gait Belt Front Wheeled Walker Gait Deviations General Gait Pattern Antalgic Decreased Stride Length Decreased Feet Clearance Flexed Trunk Step-to Gait Factors Limiting Gait Function Factors Limiting Gait Function Decreased Activity Tolerance Decreased Strength Limited Range of Motion Pain M5 PT-IP Objective Assessments Start: 07/31/18 15:25 Freq: NEEDED Status: Active Protocol: Document 08/01/18 14:10 [facility] (Rec: 08/01/18 14:27 [facility] [id number]) Orientation Orientation/Cognition Level of Alertness Alert Orientation Name Age Birthday Month Date Year Day of Week Place Situation Language Function Ability No Deficits Noted Safety Awareness Understands Safety Issues Memory Description No Deficits Noted Gross Range of Motion Lower Extremity ROM Assessment Left Impaired Impairments 5-75 degrees L knee Strength Lower Extremity Strength Assessment Left Impaired Hip flexion (unable to perform indep. SLR due to pain) Knee flexion 3/5, extension 3/5 on the L M6 PT-IP Treatment Start: 07/31/18 15:25 Freq: NEEDED Status: Active Protocol: Document 08/02/18 11:58 [facility] (Rec: 08/02/18 12:05 [facility] [id number]) Physical Therapy Treatment Exercises Exercises Ankle Pumps Gluteal Sets Quad Sets Heel Slides Education Education Provided Precautions Weight Bearing Status Post-Op Packet M7 PT-IP Assessment and Plan Start: 07/31/18 15:25 Freq: NEEDED Status: Active Protocol: Document 08/02/18 11:58 [facility] (Rec: 08/02/18 12:05 [facility] [id number]) PT Summary Assessment and Plan Summary Assessment Summary POD #2 L TKA. Pt with increased pain in WB, limited knee flexion to the point where she is unable to allow her L knee to bend in seated position (although likely increased pain due to pt's legs being too short to make contact with floor), therefore she supports the L knee with the R foot hooked underneath. She ambulated 15 ft with increased pain, decreased knee flexion throughout. Overall, pt is able to mobilize slowly, and requires one assist to get in/out of bed and for LLE support due to pain. She was encouraged to continue her post-op exercises to increase ROM and strength. Pt is not safe to return home at this time, as she is not able to ambulate safe houshold distances and she will not have assistance at home due to family having to work. Goals Bed Mobility Goal Standby Assistance Transfer Goal Standby Assistance Gait Goal Standby Assistance Gait Distance 150 Frequency of Treatment Frequency Of Treatment Twice a Day Treatment Plan Other Recommendations and Next Treatment post-op TKA exercises, gait, Focus mobility. Recommendations To Nursing Amount of Assist Needed 2 Person Assist Discharge Recommendations PT Discharge Recommendations SNF Rehab Other Discharge Recommendations SNF vs. home with assist, needs further assessment. Equipment Needed for Home Before manual w/c, FWW, BSC if to go Discharge home
--- NOTE | 2018-08-02 12:33 | PC.NURSE ---
Patient doing better today, able to mobilize a little easier but still requiring assistance. Using walker and BSC, agreed to sit up in the chair for breakfast this morning. Hemovac drain dc'd and gauze with tegaderm placed, patient tolerated well. Call light within reach. continue to follow.
[2018-08-02] MEDS: ONDANSETRON 4 MG/2 ML INJ IV (13:00)
--- NOTE | 2018-08-02 13:05 | PC.NURSE ---
GUT DROPPER reported patient had episode of emesis. Patient states after she ate lunch she became naseaous and threw up, states she is now feeling better. IV zofran given along with ice chips per her request. Call light within reach.
--- NOTE | 2018-08-02 13:15 | CM.DPC ---
DCP/continued: Reviewed chart. Spoke with therapy in AM rounds. Therapy confirmed that current recommendation is SNF when medically stable. MANAGER CARDIOVASCULAR met with patient explained CM/SW role. Patient alert and oriented during visit. Patient agreeable to SNF stay but unsure on which facility is going to be her first choice. During interview patient requesting bag because of nausea. MANAGER CARDIOVASCULAR provided patient to bag and she began to vomit. FOREST FIRE WARDEN obtained and RN notified. MANAGER CARDIOVASCULAR left contracted SNF list with patient and notified patient that CM steam press operator would check back with patient tomorrow for SNF choice. Patient in agreement. P: Anticipate SNF when medically stable. SNF list left with patient in room. Patient with n/v during visit and unsure which facility is her first choice. RYANNE Pretty
--- NOTE | 2018-08-02 13:30 | PC.NURSE ---
patient sleeping soundly at this time.
--- NOTE | 2018-08-02 16:30 | PT.IPTN ---
Current Diagnoses Unilateral primary osteoarthritis, left knee (07/31/18) Surgery Performed Operation Date: 07/31/18 07:45 Actual Procedures p Left Total Knee Arthroplasty(Left) - Noni Solo MD Physical Therapy Treatment Note M2 PT-IP Current Condition Start: 07/31/18 15:25 Freq: NEEDED Status: Active Protocol: Document 08/02/18 16:30 [facility] (Rec: 08/02/18 18:01 [facility] [id number]) Physical Therapy Current Condition Current Condition Evaluation Date 08/01/18 Treatment Diagnosis L TKA 07/31/18, impaired gait and mobility Onset Date 07/31/18 Weight Bearing Status Weight Bearing Status Weight Bear as Tolerated M3 PT-IP Subjective Start: 07/31/18 15:25 Freq: NEEDED Status: Active Protocol: Document 08/02/18 16:30 [facility] (Rec: 08/02/18 18:01 [facility] [email or web address]) Subjective Physical Therapy Visit Type Type Treatment Note Visit Start Time 16:12 Visit Stop Time 16:30 Total Visit Minutes 18 Number of CORROSION CONTROL TECHNICIAN Visits 0 Physical Therapy Visit Comments Patient Comments Pt does not think she can manage at home; she reports slight better pain control. Therapy Pain Assessment Pain When Pain Assessed During Mobility Pain Present Pain Present Pain Reported Location Left Knee Intensity 7 Scale Used Numeric (1 - 10) M4 PT-IP Mobility and Gait Start: 07/31/18 15:25 Freq: NEEDED Status: Active Protocol: Document 08/02/18 16:30 [facility] (Rec: 08/02/18 18:01 [facility] [id number]) PT-Bed Mobility Assessment Supine to Sit Supine to Sit Minimal Assistance 1 Person Assistance Bedrails Scooting Scooting to Edge of Bed Contact Guard Assistance PT-Transfer Assessment Sit to and From Stand Sit to and from Stand Minimal Assistance 1 Person Assistance Use of Upper Extremities Equipment Transfer Assistive Device Gait Belt Front Wheeled Walker Transfers Transfer Destination Chair Transfer Technique Stand Step Pivot Transfer Ability Level of Assist Contact Guard Assistance 1 Person Assistance Use of Upper Extremities Gait Assessment Gait Gait Assistance Required: Contact Guard Assist 1 Person Assist Distance (Feet) 20 Assistive Devices Assistive Device Gait Belt Front Wheeled Walker Gait Deviations General Gait Pattern Antalgic Decreased Stride Length Decreased Feet Clearance Flexed Trunk Step-to Gait Factors Limiting Gait Function Factors Limiting Gait Function Decreased Activity Tolerance Decreased Strength Limited Range of Motion Pain Poor Balance M5 PT-IP Objective Assessments Start: 07/31/18 15:25 Freq: NEEDED Status: Active Protocol: Document 08/01/18 14:10 [facility] (Rec: 08/01/18 14:27 [facility] [id number]) Orientation Orientation/Cognition Level of Alertness Alert Orientation Name Age Birthday Month Date Year Day of Week Place Situation Language Function Ability No Deficits Noted Safety Awareness Understands Safety Issues Memory Description No Deficits Noted Gross Range of Motion Lower Extremity ROM Assessment Left Impaired Impairments 5-75 degrees L knee Strength Lower Extremity Strength Assessment Left Impaired Hip flexion (unable to perform indep. SLR due to pain) Knee flexion 3/5, extension 3/5 on the L M6 PT-IP Treatment Start: 07/31/18 15:25 Freq: NEEDED Status: Active Protocol: Document 08/02/18 16:30 [facility] (Rec: 08/02/18 18:01 [facility] [id number]) Physical Therapy Treatment Exercises Exercises Ankle Pumps Seated Knee Flexion/Extension Knee ROM Measurement 5-80 M7 PT-IP Assessment and Plan Start: 07/31/18 15:25 Freq: NEEDED Status: Active Protocol: Document 08/02/18 16:30 [facility] (Rec: 08/02/18 18:01 [facility] [email or web address]) PT Summary Assessment and Plan Summary Progress Towards Goals Slow Progress due to Pain Assessment Summary POD #2 L TKA. Pt able to increase her knee flexion with seated flexion activity with manual assist from PT. She requires assistance with LLE management and is not ambulating safe household distances. Goals Bed Mobility Goal Standby Assistance Transfer Goal Standby Assistance Gait Goal Standby Assistance Gait Distance 150 Frequency of Treatment Frequency Of Treatment Twice a Day Treatment Plan Other Recommendations and Next Treatment post-op TKA exercises, gait, Focus mobility. Recommendations To Nursing Amount of Assist Needed 1 Person Assist Discharge Recommendations PT Discharge Recommendations SNF Rehab Equipment Needed for Home Before manual w/c, FWW, BSC if to go Discharge home
--- NOTE | 2018-08-02 19:35 | PC.NURSE ---
1500- assumed care of pt from outgoing shift, pt asleep at this time. bed alarm on. side rails upx3. will continue to monitor pt for safety. 1600- PT in and got pt to chair. Pt ate dinner in chair. one assist to BSC and had small amount of urine. Pt use call light. Pt complained of pain and given PRN per MAR. will continue to monitor pt for safety. Pt cooperative and has not yelled or screamed, pt is very calm today.
[2018-08-02] MEDS: ATORVASTATIN 20 MG TABLET PO (20:27)
[2018-08-03 01:10] VITALS: BP 128/71; PULSE 100; RESP 20; TEMP 37; O2SAT 98
[2018-08-03] MEDS: HYDROMORPHONE 2 MG TABLET PO ×5 (01:13→18:59)
[2018-08-03 05:48] VITALS: BP 122/68; PULSE 109; RESP 19; TEMP 37.2; O2SAT 95
--- NOTE | 2018-08-03 07:32 | PM.PNPO.1 ---
Subjective Date Patient Seen: 08/03/18 Time Patient Seen: 07:14 Interval history: Patient is post op day 3 status post L Total knee arthroplasty with Dr. Solo. Patient is laying in bed comfortably without any signs of distress. Patient reports that her pain has improved since yesterday. Her pain is manageable with Dilaudid 2mg. She reports her pain is aggravated with movement . She reports vomiting twice yesterday after lunch. She also reports that she feels like she has a sore throat. She has done minimal PT due to pain. She reports she lives with her son, however she would prefer to go to SNF upon discharge. She denies any fever, nausea, chills, chest pain or SOB. Exam Vital Signs (past 8 hours): - 08/03/18 01:10 08/03/18 05:48 Temperature 98.6 F 98.9 F Pulse Rate 100 H 109 H Respiratory Rate 20 19 Blood Pressure 128/71 122/68 Pulse Oximetry 98 95 Oxygen Delivery Method Room Air Oxygen Flow Rate 0 Narrative Exam Narrative: Patient is AOx3. Patient is in no signs of distress. Throat has mild redness noted. Radial and dorsalis pedis pulses 2+ and symmetric. L dressing CDI. Sensation to light touch intact in LE bilaterally. L calf is tender to palpation, however calfs are soft and compressible. Adequate strength in dorsiflexion, plantarflexion and pediatric acute care unit nurse bilaterally. Objective Labs Result Diagrams: 08/01/18 05:36 Assessment & Plan Post-op Postoperative Procedures Operation Date: 07/31/18 07:45 Actual Procedures Side Surgeon p Left Total Knee Arthroplasty Left Noni Solo MD Postoperative day: 3 Postoperative plan: routine post-op care Postoperative plan narrative: Continue PT. Continue pain management. Phenol spray PRN for sore throat. Likely to be discharged to SNF tomorrow. Quality VTE Deep Vein Thrombosis/Pulmonary Embolism Present on Admission: No
[2018-08-03 07:57] VITALS: BP 127/66; PULSE 105; RESP 17; TEMP 37.2; O2SAT 92
[2018-08-03] MEDS: METFORMIN HCL 500 MG TABLET 1000 MG PO ×2 (08:32→20:50)
[2018-08-03] MEDS: ASPIRIN EC 81 MG TABLET PO ×2 (08:33→20:50)
[2018-08-03] MEDS: ACETAMINOPHEN 325 MG TABLET 975 MG PO ×3 (08:33→20:49)
[2018-08-03] MEDS: hydrOXYzine pamoate 25 MG CAPSULE 50 MG PO ×3 (08:33→20:00)
[2018-08-03] MEDS: LISINOPRIL 20 MG TABLET PO (08:34)
[2018-08-03] MEDS: PHENOL LIQUID 100 SPRAYS/BOTTLE SPRAY MM (08:34)
[2018-08-03] MEDS: INSULIN ASPART 100 UNIT/ML INSULN PEN SUBCUT ×3 (08:34→17:03)
--- NOTE | 2018-08-03 09:39 | PC.NURSE ---
Patient pleasant and awake this morning. VSS. Pain better controlled today, still rates it a 6/10 at rest but smiling and talkative and states it is better. HUAN dressing with jl wrap in place and CDI. Call light within reach, continue to monitor and encourage P.T.
[2018-08-03 12:00] VITALS: BP 132/73; PULSE 100; RESP 20; TEMP 36.9; O2SAT 93
[2018-08-03] MEDS: ONDANSETRON 4 MG/2 ML INJ IV (12:16)
--- NOTE | 2018-08-03 13:27 | CM.DPC ---
Referral faxed to [facility] per [facility]
--- NOTE | 2018-08-03 13:36 | PC.NURSE ---
Patient had episode nausea with emesis approx 50cc. Medicated with IV zofran. States she is feeling better but would like to stay in bed and rest now. call light within reach.
--- NOTE | 2018-08-03 14:46 | CM.DANOTE ---
DCP/continued: Reviewed chart. Patient moved to room# 209. Met with patient to discuss SNF choice. Patient alert and oriented at time of visit. She reports that first SNF choice is [facility]. Placed call to [facility] with admit at [facility], clinical faxed per her request. [facility] does not anticipate any issues with acceptance on FridayAugust 04 if medically stable. P: [facility] when medically stable. D/C anticipated for Friday-. RYANNE Pretty
[2018-08-03 15:32] VITALS: BP 125/65; PULSE 101; RESP 20; TEMP 37.1; O2SAT 92
--- NOTE | 2018-08-03 16:16 | PT.IPTN ---
Current Diagnoses Unilateral primary osteoarthritis, left knee (07/31/18) Surgery Performed Operation Date: 07/31/18 07:45 Actual Procedures p Left Total Knee Arthroplasty(Left) - Noni Solo MD Physical Therapy Treatment Note M2 PT-IP Current Condition Start: 07/31/18 15:25 Freq: NEEDED Status: Active Protocol: Document 08/02/18 16:30 [facility] (Rec: 08/02/18 18:01 [facility] [email or web address]) Physical Therapy Current Condition Current Condition Evaluation Date 08/01/18 Treatment Diagnosis L TKA 07/31/18, impaired gait and mobility Onset Date 07/31/18 Weight Bearing Status Weight Bearing Status Weight Bear as Tolerated M3 PT-IP Subjective Start: 07/31/18 15:25 Freq: NEEDED Status: Active Protocol: Document 08/03/18 15:40 LJ (Rec: 08/03/18 16:16 LJ [id number]) Subjective Physical Therapy Visit Type Type Treatment Note Visit Start Time 15:40 Visit Stop Time 16:08 Total Visit Minutes 28 Number of EXIT BOOTH AGENT Visits 1 Physical Therapy Visit Comments Patient Comments Pt reports pain is lessening post medication but still high . Therapy Pain Assessment Pain When Pain Assessed During Mobility Pain Present Pain Present Pain Reported M4 PT-IP Mobility and Gait Start: 07/31/18 15:25 Freq: NEEDED Status: Active Protocol: Document 08/03/18 15:40 LJ (Rec: 08/03/18 16:16 LJ [id number]) PT-Bed Mobility Assessment Supine to Sit Supine to Sit Standby Assistance Bedrails Scooting Scooting to Edge of Bed Standby Assistance PT-Transfer Assessment Sit to and From Stand Sit to and from Stand Minimal Assistance Use of Upper Extremities Equipment Transfer Assistive Device Gait Belt Front Wheeled Walker Transfers Transfer Destination Chair Transfer Technique Stand Step Pivot Transfer Ability Level of Assist Contact Guard Assistance 1 Person Assistance Use of Upper Extremities Gait Assessment Gait Gait Assistance Required: Contact Guard Assist 1 Person Assist Distance (Feet) 15 Assistive Devices Assistive Device Gait Belt Front Wheeled Walker Gait Deviations General Gait Pattern Antalgic Decreased Stride Length Decreased Feet Clearance Flexed Trunk Step-to Gait Factors Limiting Gait Function Factors Limiting Gait Function Decreased Activity Tolerance Decreased Strength Limited Range of Motion Pain Poor Balance M5 PT-IP Objective Assessments Start: 07/31/18 15:25 Freq: NEEDED Status: Active Protocol: Document 08/01/18 14:10 [facility] (Rec: 08/01/18 14:27 [facility] [email or web address]) Orientation Orientation/Cognition Level of Alertness Alert Orientation Name Age Birthday Month Date Year Day of Week Place Situation Language Function Ability No Deficits Noted Safety Awareness Understands Safety Issues Memory Description No Deficits Noted Gross Range of Motion Lower Extremity ROM Assessment Left Impaired Impairments 5-75 degrees L knee Strength Lower Extremity Strength Assessment Left Impaired Hip flexion (unable to perform indep. SLR due to pain) Knee flexion 3/5, extension 3/5 on the L M6 PT-IP Treatment Start: 07/31/18 15:25 Freq: NEEDED Status: Active Protocol: Document 08/03/18 15:40 LJ (Rec: 08/03/18 16:16 LJ [id number]) Physical Therapy Treatment Exercises Exercises Ankle Pumps Seated Knee Flexion/Extension Education Education Provided Precautions Safety M7 PT-IP Assessment and Plan Start: 07/31/18 15:25 Freq: NEEDED Status: Active Protocol: Document 08/03/18 15:40 LJ (Rec: 08/03/18 16:16 [id number]) PT Summary Assessment and Plan Summary Impairments Pain ROM Strength Balance Bed Mobility Transfers Gait Activity Tolerance Progress Towards Goals Slow Progress due to Pain Assessment Summary Pt Min a for bed mobility requiring assist w/RLE. CGA w/ transfers sit<>stand using UEs . Demonstrated controlled decent into chair and understanding of RLE management. Pt able to position self in chair. EXIT BOOTH AGENT left pt in hair with all needs and ice packs on R knee. Advised pt to leave ice in place for at least 20 min. Goals Bed Mobility Goal Standby Assistance Transfer Goal Standby Assistance Gait Goal Standby Assistance Gait Distance 150 Frequency of Treatment Frequency Of Treatment Twice a Day Treatment Plan Physical Therapy Treatment Plan Bed Mobility Training Transfer Training Gait Training Therapeutic Exercise Balance Retraining Post Op Education Discharge Planning Hot or Cold Pack Neuromuscular Re-ed Other Recommendations and Next Treatment post-op TKA exercises, gait, Focus mobility. Recommendations To Nursing Amount of Assist Needed 1 Person Assist Discharge Recommendations PT Discharge Recommendations SNF Rehab Equipment Needed for Home Before manual w/c, FWW, BSC if to go Discharge home
[2018-08-03 19:49] VITALS: BP 102/54; PULSE 88; RESP 20; TEMP 36.7; O2SAT 95
[2018-08-03] MEDS: ATORVASTATIN 20 MG TABLET PO (20:50)
[2018-08-03] MEDS: OXYCODONE IR 10 MG TABLET PO (20:54)
[2018-08-04 00:17] VITALS: BP 103/60; PULSE 103; RESP 20; TEMP 37.1; O2SAT 93
[2018-08-04] MEDS: ONDANSETRON 4 MG/2 ML INJ IV (01:38)
[2018-08-04 04:50] VITALS: BP 103/61; PULSE 107; RESP 20; TEMP 36.9; O2SAT 92
[2018-08-04 07:25] VITALS: BP 123/57; PULSE 96; RESP 18; TEMP 36.6; O2SAT 90
--- NOTE | 2018-08-04 07:28 | PM.DS.1 ---
History of Present Illness Date Patient Seen: 08/04/18 Chief complaint: 20939 LEFT TOTAL KNEE ARTHROPLASTY Narrative: Patient seen bedside s/p L. TKA POD #4. Patient doing well but complains of slight nausea 2/2 pain medication. Patient has not been ambulating much. Discharge Providers Date of admission: 07/31/18 06:07 Primary care physician: Brandon Alaniz MD Consults: 07/31/18 06:00 Consult to Anesthesiology Routine Comment: Consulting Provider: Anesthesiologist Reason for consultation: Regional block for post operative pain control 07/31/18 12:19 Consult to Discharge Planning Routine Comment: Consult to Physical Therapy Evaluate & Treat Comment: Physician Instructions: postop TKA protocol Consult to Respiratory Therapy Evaluate & Treat Comment: Physician Instructions: Evaluate and treat 07/31/18 13:58 Consult to Dietitian, Adult Routine Comment: Pt. has lost 80 lbs. in 6 months on own at home Reason For Exam: reflex order triggered by high BMI Discharge provider: Stephanie Riley PA-C Discharge Date: 08/04/18 Summary Discharge Diagnosis: 1. Left knee osteoarthritis 2. Morbid obesity Hospital Course: Patient admitted to the hospital s/p L. TKA on 07/31/18. Patient tolerated the procedure well with no major complications. Patient was transferred to the acute care floor where she was seen by PT and recommended for d/c to a SNF. She was stable and ready for d/c on 08/04/18. Status at Discharge Cognitive/behavioral status at discharge: Alert & oriented Functional status at discharge: uses cane/walker Overall status at discharge: patient is progressing back to baseline Time Spent with Patient Less than 30 minutes Exam Vital Signs (past 8 hours): - 08/04/18 00:17 08/04/18 04:50 Temperature 98.8 F 98.5 F Pulse Rate 103 H 107 H Respiratory Rate 20 20 Blood Pressure 103/60 103/61 Pulse Oximetry 93 92 Oxygen Delivery Method Room Air Oxygen Flow Rate 0 Narrative Exam Narrative: WDWN NAD A&Ox3. HUAN dressing in place with old spotting on the dressing. Otherwise dressing is CDI. She is NVI in this extremity with full ROM of the hip and ankle. Her calf is soft and compressible. Objective Labs Result Diagrams: 08/01/18 05:36 Discharge Plan Discharge Plan Patient Disposition: SNF Transfer to: [facility] I certify the postop hospital fdc care is medically necessary on a continuing basis for any conditions for which he/ she received care during this hospitalization.: Yes The receiving facility has agreed to accept transfer and provide medical treatment.: Yes Discharge Med Rec/Prescriptions Prescriptions: New aspirin 81 mg Tablet,Delayed Release (Dr/Ec) 81 mg PO BID Qty: 0 RF: 0 hydromorphone 2 mg Tablet 2 mg PO Q4-6H Qty: 12 RF: 0 docusate sodium 100 mg Capsule 100 mg PO BID Qty: 0 RF: 0 hydroxyzine pamoate 25 mg Capsule 50 mg PO Q6HR PRN (Reason: spasm) Qty: 0 RF: 0 Continue lisinopril 20 MG tablet 20 mg PO QDAY Qty: 30 RF: 11 atorvastatin [Lipitor] 20 MG tablet 20 mg PO HS Qty: 30 RF: 11 sumatriptan succinate [Imitrex] 25 mg tablet See Label Instructions PO .COMPLEX Qty: 10 RF: 5 tramadol 50 mg tablet 100 mg PO QIDP PRN (Reason: pain) Qty: 224 RF: 1 canagliflozin [Invokana] 300 mg tablet 300 mg PO DAILY Qty: 30 RF: 1 hydroxyzine HCl 25 mg tablet 25 mg PO QIDP PRN (Reason: unknown) Qty: 120 RF: 3 hydrocodone-acetaminophen [[place]] 5-325 mg tablet 1 tab PO QID Qty: 120 RF: 0 nystatin 100,000 unit/gram Cream 1 applic TOPICAL TID RF: 0 metformin 500 mg tablet 1,000 mg PO BID Qty: 360 RF: 1 diclofenac sodium 75 mg tablet,delayed release (DR/EC) 75 mg PO BID Qty: 60 RF: 0 Discontinued aspirin 81 mg Tablet,Delayed Release (Dr/Ec) 81 mg PO QDAY Qty: 0 RF: 0 Follow up/Referrals: Noni Solo MD [Physician] - (Follow up on 08/07/18 at the [facility] office with Ross Mccurdy PA-C) Discharge Health Status Precautions: [place] Provider Discharge Instructions Diet: Carb-consistent/Diabetic, Low-fat and Low-sodium Skin/Wound/Dressing Care Report to your healthcare provider any signs of infection, such as:: chills, fever, night sweats, increased pain and unusual drainage Dressing: Keep dressing clean, dry, and intact. Special Rehabilitation Services Reason for rehabilitation: Post-operative therapy Rehab type: Physical therapy and Occupational therapy Discharge Data Primary Care Provider: Brandon Alaniz Attending Provider: Noni Solo Admit Date/Time: 07/31/18 06:07 Quality VTE Deep Vein Thrombosis/Pulmonary Embolism Present on Admission: No
[2018-08-04] MEDS: METFORMIN HCL 500 MG TABLET 1000 MG PO (08:11)
[2018-08-04 08:12] VITALS: TEMP 35.8
[2018-08-04] MEDS: ACETAMINOPHEN 325 MG TABLET 975 MG PO (08:12)
[2018-08-04] MEDS: INSULIN ASPART 100 UNIT/ML INSULN PEN SUBCUT (08:14)
[2018-08-04] MEDS: DOCUSATE 100 MG CAPSULE PO (08:14)
[2018-08-04] MEDS: ASPIRIN EC 81 MG TABLET PO (08:14)
[2018-08-04] MEDS: HYDROMORPHONE 2 MG TABLET PO (08:16)
--- NOTE | 2018-08-04 10:00 | PT.IPTN ---
Current Diagnoses Unilateral primary osteoarthritis, left knee (07/31/18) Surgery Performed Operation Date: 07/31/18 07:45 Actual Procedures p Left Total Knee Arthroplasty(Left) - Noni Solo MD Physical Therapy Treatment Note M2 PT-IP Current Condition Start: 07/31/18 15:25 Freq: NEEDED Status: Active Protocol: Document 08/02/18 16:30 RCC (Rec: 08/02/18 18:01 RCC [id number]) Physical Therapy Current Condition Current Condition Evaluation Date 08/01/18 Treatment Diagnosis L TKA 07/31/18, impaired gait and mobility Onset Date 07/31/18 Weight Bearing Status Weight Bearing Status Weight Bear as Tolerated M3 PT-IP Subjective Start: 07/31/18 15:25 Freq: NEEDED Status: Active Protocol: Document 08/04/18 10:00 AB (Rec: 08/04/18 12:13 AB [id number]) Subjective Physical Therapy Visit Type Type Treatment Note Visit Start Time 10:00 Visit Stop Time 10:22 Total Visit Minutes 22 Number of [employer]ICER Visits 0 Physical Therapy Visit Comments Patient Comments pt agreeable to do PT. Therapy Pain Assessment Pain When Pain Assessed During Mobility Pain Present Pain Present Pain Reported Location Left Knee Intensity 10 Scale Used Numeric (1 - 10) Pain Behaviors Facial Grimacing Pain Management Techniques Apply Cold Re-positioning Timing of Activity with Medications M4 PT-IP Mobility and Gait Start: 07/31/18 15:25 Freq: NEEDED Status: Active Protocol: Document 08/04/18 10:00 AB (Rec: 08/04/18 12:13 AB [id number]) PT-Bed Mobility Assessment Sit to Supine Sit to Supine Maximum Assistance 1 Person Assistance Gait Assessment Gait Gait Assistance Required: Contact Guard Assist Minimum Assistance Distance (Feet) 20 Able to Maintain Weight Bearing Status Yes During Gait Assistive Devices Assistive Device Gait Belt Front Wheeled Walker Orthotic/Prosthetic Devices or Brace: No Gait Deviations General Gait Pattern Antalgic Decreased Stride Length Decreased Feet Clearance Factors Limiting Gait Function Factors Limiting Gait Function Decreased Activity Tolerance Decreased Strength Pain Poor Balance Comments Gait Comments pt just used the toilet with NAC assisting pt. PT took over. NAC stated that pt is wanting to go back to bed. pt said that she has been up on the chair since 730 am and wants to go back to bed. pt agreed to ambulate first before going to bed but refused to ambulate out of the room. M5 PT-IP Objective Assessments Start: 07/31/18 15:25 Freq: NEEDED Status: Active Protocol: Document 08/01/18 14:10 RCC (Rec: 08/01/18 14:27 RCC [id number]) Orientation Orientation/Cognition Level of Alertness Alert Orientation Name Age Birthday Month Date Year Day of Week Place Situation Language Function Ability No Deficits Noted Safety Awareness Understands Safety Issues Memory Description No Deficits Noted Gross Range of Motion Lower Extremity ROM Assessment Left Impaired Impairments 5-75 degrees L knee Strength Lower Extremity Strength Assessment Left Impaired Hip flexion (unable to perform indep. SLR due to pain) Knee flexion 3/5, extension 3/5 on the L M6 PT-IP Treatment Start: 07/31/18 15:25 Freq: NEEDED Status: Active Protocol: Document 08/04/18 10:00 AB (Rec: 08/04/18 12:13 AB [id number]) Physical Therapy Treatment Exercises Exercises Ankle Pumps Quad Sets Heel Slides Education Education Provided Precautions Safety M7 PT-IP Assessment and Plan Start: 07/31/18 15:25 Freq: NEEDED Status: Active Protocol: Document 08/04/18 10:00 AB (Rec: 08/04/18 12:13 AB [id number]) PT Summary Assessment and Plan Potential Rehabilitation Potential Good Summary Impairments Pain ROM Strength Balance Coordination Sensation Bed Mobility Transfers Gait Activity Tolerance Progress Towards Goals Slow Progress due to Pain Assessment Summary Pt continues to require one person assist with mobility. has difficulty with sit to supine requiring max A to elevated LE up in bed. pt will benefit from SNF rehab to improve strength and mobility . Goals Bed Mobility Goal Standby Assistance Transfer Goal Standby Assistance Gait Goal Standby Assistance Gait Distance 150 Frequency of Treatment Frequency Of Treatment Twice a Day Treatment Plan Physical Therapy Treatment Plan Bed Mobility Training Transfer Training Gait Training Therapeutic Exercise Balance Retraining Post Op Education Discharge Planning Hot or Cold Pack Neuromuscular Re-ed Other Recommendations and Next Treatment post-op TKA exercises, gait, Focus mobility. Recommendations To Nursing Amount of Assist Needed 1 Person Assist Discharge Recommendations PT Discharge Recommendations SNF Rehab
--- NOTE | 2018-08-04 10:04 | CM.DPC ---
DCP/continued: Reviewed chart. Order received for patient to d/c to SNF today. [facility] has accepted. DIRECTOR OF COMM[facility]ITY C[facility] completed PASRR and requested MANAGER FINE/Naila to finalize discharge. P: [facility] today. RYANNE Pretty
--- NOTE | 2018-08-04 13:41 | PC.NURSE ---
Pt has discharged to [facility] and pt has been discharged to [facility]. Report called.
== END 2018-08-04 13:00 | DRG 470 ==
LOC: AC 08-04 11:39 → OR 08-04 14:25
PROVIDERS: Admitting Provider Orthopaedic Surgery; PCP Internal Medicine; Visit Provider Orthopaedic Surgery
PROC: 0SRD0JZ Replacement of Left Knee Joint with Synthetic Substitute, Open Approach (ICD-10-PCS; CPT 27447; principal; 2018-07-31 07:45)
DX: M17.12 Unilateral primary osteoarthritis, left knee (principal); Z68.42 Body mass index [BMI] 45.0-49.9, adult; I10 Essential (primary) hypertension; E78.5 Hyperlipidemia, unspecified; E11.9 Type 2 diabetes mellitus without complications; F32.9 Major depressive disorder, single episode, unspecified; Z87.891 Personal history of nicotine dependence; Z79.84 Long term (current) use of oral hypoglycemic drugs; R25.2 Cramp and spasm; R11.0 Nausea; E66.01 Morbid (severe) obesity due to excess calories
CPT/HCPCS: 36415; 73560; 82962; 85014; 85018; 97110; 97116; 97162; 97530; C1776; C9290; J0690; J1170; J2250; J2405; J3010; J3370

== ENCOUNTER 2018-08-15 11:58 | Emergency (ER) | payer MEDICARE, MEDICAID, OTHER, SELFPAY ==
[2018-07-31 07:24] VITALS: BMI 49.6
[2018-08-15 11:59] VITALS: BP 173/89; PULSE 110; RESP 22; O2SAT 100; BMI 49.2
[2018-08-15 12:02] VITALS: BP 158/81; TEMP 36.9; O2SAT 98
[2018-08-15 12:07] VITALS: PULSE 110
--- NOTE | 2018-08-15 12:08 | PC.NURSE ---
Well healing surgical incision with [address] No discharge, no erythema, no edema at incision site. Pt c/o of severe muscle spasming in the knee spreading down the lateral aspect of the left distal leg. Able to transfer with standby assistance. States she can walk with 4WW.
--- NOTE | 2018-08-15 12:15 | ED.EXTPRO ---
HPI - Extremity Problem <STEFF Tovar - Last Filed: 08/15/18 21:36> General Chief complaint: Extremity Problem,Nontraumatic Stated complaint: Knee spasms Time Seen by Provider: 08/15/18 12:04 Source: patient Mode of arrival: ambulatory Limitations: no limitations History of Present Illness HPI Narrative: 57-year-old female with history of type 2 diabetes and is a former smoker here for complaint of pain into her left calf area. she recently had left knee replacement. She reports that she had physical therapy yesterday. She denies any trauma to the area. No shortness of breath. No chest pain. No fevers or chills. She currently uses Dilaudid for discomfort and also cyclobenzaprine for her symptoms. She denies any other concerns or complaints at this time. Related Data Home Medications Medication Instructions Recorded Confirmed nystatin 1 applic TOPICAL TID 07/16/18 08/03/18 Previous Rx's Medication Instructions Recorded lisinopril 20 mg PO QDAY #30 tab 11/03/17 atorvastatin [Lipitor] 20 mg PO HS #30 tab 11/17/17 diclofenac sodium 75 mg 75 mg PO BID #60 tab 03/23/18 tablet,delayed release metformin 500 mg tablet 1,000 mg PO BID #360 tab 03/23/18 sumatriptan 25 mg tablet See Label Instructions PO .COMPLEX 04/20/18 #10 tab canagliflozin 300 mg tablet 300 mg PO DAILY #30 tab 06/26/18 tramadol 50 mg tablet 100 mg PO QIDP PRN #224 tab 06/26/18 hydrocodone 5 mg-acetaminophen 325 1 tab PO QID #120 tab 07/13/18 mg tablet aspirin 81 mg PO BID #0 tab 08/04/18 docusate sodium 100 mg PO BID #0 cap 08/04/18 hydromorphone 2 mg PO Q4-6H #12 tab 08/04/18 hydroxyzine pamoate 50 mg PO Q6HR PRN #0 cap 08/04/18 Allergies Allergy/AdvReac Type Severity Reaction Status Date / Time iodine [IODINE] Allergy Severe HIVES IV Verified 08/15/18 12:10 IODINE Review of Systems <STEFF Tvoar - Last Filed: 08/15/18 21:36> Constitutional Denies chills, Denies fever(s), Denies lethargy and Denies weakness Eyes Denies change in vision, Denies eye discharge, Denies irritation and Denies loss of vision ENT Ears, Nose, Mouth, and Throat: Denies change in voice, Denies neck pain and Denies sore throat Cardiovascular Denies chest pain, Denies irregular heart rhythm, Denies lightheadedness, Denies palpitations, Denies dyspnea, Denies dyspnea on exertion and Denies orthopnea Respiratory Denies cough, Denies dyspnea, Denies dyspnea on exertion and Denies wheezing Gastrointestinal Gastrointestinal: Denies abdominal pain, Denies change in bowel habits, Denies diarrhea, Denies nausea and Denies vomiting Genitourinary Denies hematuria, Denies flank pain, Denies urinary incontinence and Denies urinary urgency Musculoskeletal Denies neck pain Comments: Muscle spasm /pain to left calf Integumentary/Breasts Denies pruritus, Denies erythema, Denies rash and Denies wounds Neurologic Denies confusion, Denies loss of vision and Denies weakness Psychiatric Denies anxiety, Denies confusion, Denies depression, Denies homicidal ideation and Denies suicidal ideation Endocrine Denies palpitations Hematologic/Lymphatic Denies easy bruising Allergic/Immunologic Denies wheezing Exam <STEFF Tovar - Last Filed: 08/15/18 21:36> Initial Vital Signs Initial Vital Signs: Vital Signs Pulse Rate 110 H 08/15/18 11:59 Respiratory Rate 22 08/15/18 11:59 Blood Pressure 173/89 H 08/15/18 11:59 Pulse Oximetry 100 08/15/18 11:59 Const General: cooperative and well developed Nutritional Appearance: well nourished Orientation: alert, awake, oriented x3 and not confused [facility] Mouth: oral mucosae normal and moist mucous membranes Eyes Conjunctivae: conjunctivae normal Sclera: sclerae normal Pupils: PERRL EOM: EOM intact bilaterally Neck Lymphatic: lymphedema Resp Effort & Inspection: normal respiratory effort, able to speak in complete sentences, no respiratory distress and no use of accessory muscles Auscultation: clear to auscultation bilaterally, no rales, no rhonchi and no wheezes Skin General: no rashes or lesions noted, No jaundice and No petechiae Neuro General: alert, oriented x3, gait normal and no focal motor deficits Speech: speech normal Extrem Other: left knee incision appears to be healing well with no signs of infection. No signs of trauma to the left lower extremity. Distal sensation is intact. Distal range of motion is intact. Distal pulses are intact. No swelling no erythema. <Lucia Jorge DO - Last Filed: 08/16/18 10:49> Initial Vital Signs Initial Vital Signs: Vital Signs Pulse Rate 110 H 08/15/18 11:59 Respiratory Rate 22 08/15/18 11:59 Blood Pressure 173/89 H 08/15/18 11:59 Pulse Oximetry 100 08/15/18 11:59 Course <STEFF Tovar - Last Filed: 08/15/18 21:36> Orders Ordered: Discontinued Medications Cyclobenzaprine HCl (Flexeril) 10 mg PO NOW ONE Stop: 08/15/18 12:22 Last Admin: 08/15/18 12:44 Dose: 10 mg Hydromorphone HCl (Dilaudid) 1 mg IV NOW ONE Stop: 08/15/18 12:20 Last Admin: 08/15/18 12:42 Dose: 1 mg Hydromorphone HCl (Dilaudid) 1 mg IV NOW ONE Stop: 08/15/18 13:49 Last Admin: 08/15/18 13:52 Dose: 1 mg Sodium Chloride (Normal Saline 0.9%) 1,000 mls @ 1,000 mls/hr IV BOLUS ONE Stop: 08/15/18 13:18 Last Infusion: 08/15/18 14:50 Dose: 0 mls/hr Admin: 08/15/18 12:42 Dose: 1,000 mls/hr Vital Signs - 8 hr 08/15/18 13:36 08/15/18 14:51 Pulse Rate 90 75 Respiratory Rate 16 14 Blood Pressure [Right Arm] 141/63 H 126/75 Pulse Oximetry 100 98 <Lucia Jorge DO - Last Filed: 08/16/18 10:49> Orders Ordered: Discontinued Medications Cyclobenzaprine HCl (Flexeril) 10 mg PO NOW ONE Stop: 08/15/18 12:22 Last Admin: 08/15/18 12:44 Dose: 10 mg Hydromorphone HCl (Dilaudid) 1 mg IV NOW ONE Stop: 08/15/18 12:20 Last Admin: 08/15/18 12:42 Dose: 1 mg Hydromorphone HCl (Dilaudid) 1 mg IV NOW ONE Stop: 08/15/18 13:49 Last Admin: 08/15/18 13:52 Dose: 1 mg Sodium Chloride (Normal Saline 0.9%) 1,000 mls @ 1,000 mls/hr IV BOLUS ONE Stop: 08/15/18 13:18 Last Infusion: 08/15/18 14:50 Dose: 0 mls/hr Admin: 08/15/18 12:42 Dose: 1,000 mls/hr Vital Signs - 8 hr 08/15/18 13:36 08/15/18 14:51 Pulse Rate 90 75 Respiratory Rate 16 14 Blood Pressure [Right Arm] 141/63 H 126/75 Pulse Oximetry 100 98 MDM - Extremity (Nontraumatic) <STEFF Tovar - Last Filed: 08/15/18 21:36> Lab Data Result diagrams: 08/15/18 13:30 08/15/18 13:30 Lab Results 08/15/18 08/15/18 Range/Units 13:30 13:30 WBC 9.0 (4.5-11.0) X10^3/uL RBC 4.40 (4.0-5.2) X10^6/uL Hgb 12.2 (12.0-16.0) g/dL Hct 37.7 (36-46) % MCV 85.8 (80-100) fL MCH 27.7 (26-34) PG MCHC 32.3 (30-36) % RDW 13.7 (11.6-14.8) % Plt Count 456 H (150-400) X10^3/uL Neut % (Auto) 66.3 (50-75) % Lymph % (Auto) 21.2 L (25-40) % [place] % (Auto) 7.5 (3-14) % Eos % (Auto) 3.9 (2-4) % Baso % (Auto) 1.1 (0-2) % Neut # (Auto) 6000 H (2184-6419) /uL Sodium 145 (137-145) mmol/L Potassium 4.8 (3.4-5.1) mmol/L Chloride 107 (98-107) mmol/L Carbon Dioxide 25 (22-32) mmol/L BUN 24 H (7-17) mg/dL Creatinine 1.20 H (0.52-1.04) mg/dL Estimated GFR 46.1 L (>60) mL/min BUN/Creatinine Ratio 20.0 (6-22) Glucose 166 H (70-100) mg/dL Calcium 9.0 (8.4-10.2) mg/dL Total Bilirubin 0.4 (0.2-1.3) mg/dL AST 16 (14-36) IU/L ALT 24 (9-52) IU/L Alkaline Phosphatase 96 (38-126) U/L Total Protein 7.2 (6.3-8.2) g/dL Albumin 4.0 (3.5-5.0) g/dL Globulin 3.2 (1.7-4.1) g/dL Albumin/Globulin Ratio 1.3 (1.0-2.8) Urine Dip Bedside Urine Glucose 1000 mg/dl Bedside Urine Bilirubin - Negative Bedside Urine Ketone - Negative Urine Specific [place] 1.015 Bedside Urine Occult Blood - Negative Bedside Urine pH 6.0 Bedside Urine Protein - Negative Bedside Urine Urobilinogen - Negative Bedside Urine Nitrite - Negative Bedside Urine Leukocytes - Negative Esterase Imaging Data left lower extremity: Radiologist's impression: [place] [address] Ultrasound Report Signed Patient: Kenzie Maya [facility]#: [id number] : 9Acct:[id number] Age/Sex: 57 / FDate of Service: 08/15/18 Loc: ED Accession Number: [id number] Procedure: US perip venous low extrem lt Ordering Provider: Nabil Gamble PROCEDURE: US PERIP VENOUS LOW EXTREM LT INDICATIONS: Pain into left calf TECHNIQUE: Real-time imaging, as well as color and pulse Doppler interrogation, were performed of the lower extremity deep veins from the inguinal ligament to the popliteal fossa. COMPARISON: None. FINDINGS: The deep veins are normally compressible, and free of intraluminal thrombus. Color and pulse Doppler demonstrate normal phasic intraluminal flow. There is normal augmentation response to distal compression maneuver. IMPRESSION: No DVT found. Dictated by: Suresh Broussard M.D. on 08/15/2018 at 13:00 Approved by: Suresh Broussard M.D. on 08/15/2018 at 13:02 [facility] Narrative Medical decision making narrative: ultrasound left lower extremity was obtained and no DVT was seen. CBC was obtained and was unremarkable. Chem panel shows glucose of 166 and GFR of 46.1 with creatinine of 1.2 which consistent with her prior lab values. otherwise CMP was unremarkable. Signs and symptoms presents as a pain/cramps to left lower extremity most likely exacerbated by physical therapy yesterday. Use currently prescribed pain management regimen as needed for discomfort. Follow up with Orthopedics. For any worsening symptoms return to the emergency room. Gentle range of motion and gentle stretching to painful areas. <Lucia Jorge, - Last Filed: 08/16/18 10:49> Lab Data Lab Results 08/15/18 08/15/18 Range/Units 13:30 13:30 WBC 9.0 (4.5-11.0) X10^3/uL RBC 4.40 (4.0-5.2) X10^6/uL Hgb 12.2 (12.0-16.0) g/dL Hct 37.7 (36-46) % MCV 85.8 (80-100) fL MCH 27.7 (26-34) PG MCHC 32.3 (30-36) % RDW 13.7 (11.6-14.8) % Plt Count 456 H (150-400) X10^3/uL Neut % (Auto) 66.3 (50-75) % Lymph % (Auto) 21.2 L (25-40) % [place] % (Auto) 7.5 (3-14) % Eos % (Auto) 3.9 (2-4) % Baso % (Auto) 1.1 (0-2) % Neut # (Auto) 6000 H (2067-0836) /uL Sodium 145 (137-145) mmol/L Potassium 4.8 (3.4-5.1) mmol/L Chloride 107 (98-107) mmol/L Carbon Dioxide 25 (22-32) mmol/L BUN 24 H (7-17) mg/dL Creatinine 1.20 H (0.52-1.04) mg/dL Estimated GFR 46.1 L (>60) mL/min BUN/Creatinine Ratio 20.0 (6-22) Glucose 166 H (70-100) mg/dL Calcium 9.0 (8.4-10.2) mg/dL Total Bilirubin 0.4 (0.2-1.3) mg/dL AST 16 (14-36) IU/L ALT 24 (9-52) IU/L Alkaline Phosphatase 96 (38-126) U/L Total Protein 7.2 (6.3-8.2) g/dL Albumin 4.0 (3.5-5.0) g/dL Globulin 3.2 (1.7-4.1) g/dL Albumin/Globulin Ratio 1.3 (1.0-2.8) Urine Dip Bedside Urine Glucose 1000 mg/dl Bedside Urine Bilirubin - Negative Bedside Urine Ketone - Negative Urine Specific [place] 1.015 Bedside Urine Occult Blood - Negative Bedside Urine pH 6.0 Bedside Urine Protein - Negative Bedside Urine Urobilinogen - Negative Bedside Urine Nitrite - Negative Bedside Urine Leukocytes - Negative Esterase Discharge Plan Departure Patient Disposition: Home Clinical Impression: Leg pain, left Discharge Date/Time: 08/15/18 14:54 Interventions: ED Discharge Assessment Last Done: 08/15/18 14:52 Instructions: DI for Leg Pain Activity Restrictions/Additional Instructions: laboratory results and ultrasound were unremarkable today. signs and symptoms presents as muscle pain/cramps to left lower extremity that may have been exacerbated by physical therapy yesterday. Ensure your drinking adequate fluids. Gentle range of motion to the lower extremity and gentle stretching to help keep muscles loose. Follow up with Orthopedics. Use currently prescribed pain management regimen as instructed. For any worsening symptoms return to the emergency room. Prescriptions: No Action lisinopril 20 MG tablet 20 mg PO QDAY Qty: 30 RF: 11 atorvastatin [Lipitor] 20 MG tablet 20 mg PO HS Qty: 30 RF: 11 sumatriptan succinate [Imitrex] 25 mg tablet See Label Instructions PO .COMPLEX Qty: 10 RF: 5 tramadol 50 mg tablet 100 mg PO QIDP PRN (Reason: pain) Qty: 224 RF: 1 canagliflozin [Invokana] 300 mg tablet 300 mg PO DAILY Qty: 30 RF: 1 hydrocodone-acetaminophen [[place]] 5-325 mg tablet 1 tab PO QID Qty: 120 RF: 0 nystatin 100,000 unit/gram Cream 1 applic TOPICAL TID RF: 0 metformin 500 mg tablet 1,000 mg PO BID Qty: 360 RF: 1 diclofenac sodium 75 mg tablet,delayed release (DR/EC) 75 mg PO BID Qty: 60 RF: 0 aspirin 81 mg Tablet,Delayed Release (Dr/Ec) 81 mg PO BID Qty: 0 RF: 0 hydromorphone 2 mg Tablet 2 mg PO Q4-6H Qty: 12 RF: 0 docusate sodium 100 mg Capsule 100 mg PO BID Qty: 0 RF: 0 hydroxyzine pamoate 25 mg Capsule 50 mg PO Q6HR PRN (Reason: spasm) Qty: 0 RF: 0 Referrals: Brandon Alaniz MD [Primary Care Provider] - <Lucia Joreg DO - Last Filed: 08/16/18 10:49> Cosign ED Attending Cosignature Attestation: I was immediately available in the department for consultation. This documentation has been reviewed and I agree with assessment and plan. Supervised by Lucia Jorge DO
--- NOTE | 2018-08-15 12:19 | DI.US.S_ITS ---
PROCEDURE: US PERIPH VENOUS LOW EXTREM LT INDICATIONS: Pain into left calf TECHNIQUE: Real-time imaging, as well as color and pulse Doppler interrogation, were performed of the lower extremity deep veins from the inguinal ligament to the popliteal fossa. COMPARISON: None. FINDINGS: The deep veins are normally compressible, and free of intraluminal thrombus. Color and pulse Doppler demonstrate normal phasic intraluminal flow. There is normal augmentation response to distal compression maneuver. IMPRESSION: No DVT found. Dictated by: Suresh Broussard M.D. on 08/15/2018 at 13:00 Approved by: Suresh Broussard M.D. on 08/15/2018 at 13:02
[2018-08-15] MEDS: HYDROMORPHONE 1 MG INJ IV ×2 (12:42→13:52)
[2018-08-15] MEDS: SODIUM CHLORIDE 0.9% 1,000 ML 1000 ML IV (12:42)
[2018-08-15] MEDS: CYCLOBENZAPRINE 10 MG TABLET PO (12:44)
[2018-08-15 13:36] VITALS: BP 141/63; PULSE 90; RESP 16; O2SAT 100
[2018-08-15 13:50] LABS: Add Manual Diff / Slide Review NO; Basophils Percent Auto 1.1 % (0-2); Eosinophils Percent Auto 3.9 % (2-4); Hematocrit 37.7 % (36-46); Hemoglobin 12.2 g/dL (12.0-16.0); Lymphocytes Percent Auto 21.2 % (25-40); Mean Corpuscular HGB Conc 32.3 % (30-36); Mean Corpuscular Hemoglobin 27.7 PG (26-34); Mean Corpuscular Volume 85.8 fL (80-100); Monocytes Percent Auto 7.5 % (3-14); Neutrophils Absolute Auto 6000 /uL (3000-5900); Neutrophils Percent Auto 66.3 % (50-75); Platelet Count 456 X10^3/uL (150-400); Red Cell Distribution Width 13.7 % (11.6-14.8)
[2018-08-15 14:03] LABS: Alanine Aminotransferase 24 IU/L (9-52); Albumin Globulin Ratio 1.3 (1.0-2.8); Alkaline Phosphatase 96 U/L (38-126); Aspartate Aminotransferase 16 IU/L (14-36); Bilirubin Total 0.4 mg/dL (0.2-1.3); Blood Urea Nitrogen 24 mg/dL (7-17); Carbon Dioxide 25 mmol/L (22-32); Chloride 107 mmol/L (98-107); Estimated Glomerular Filt Rate 46.1 mL/min (>60); Globulin 3.2 g/dL (1.7-4.1); Glucose 166 mg/dL (70-100); HEMOLYSIS < 15 (0-50); Potassium 4.8 mmol/L (3.4-5.1); Sodium 145 mmol/L (137-145); Total Protein 7.2 g/dL (6.3-8.2)
--- NOTE | 2018-08-15 14:32 | ED_ITS ---
HPI - Extremity Problem <STEFF Tovar - Last Filed: 08/15/18 21:36> General Chief complaint: Extremity Problem,Nontraumatic Stated complaint: Knee spasms Time Seen by Provider: 08/15/18 12:04 Source: patient Mode of arrival: ambulatory Limitations: no limitations History of Present Illness HPI Narrative: 57-year-old female with history of type 2 diabetes and is a former smoker here for complaint of pain into her left calf area. she recently had left knee replacement. She reports that she had physical therapy yesterday. She denies any trauma to the area. No shortness of breath. No chest pain. No fevers or chills. She currently uses Dilaudid for discomfort and also cyclobenzaprine for her symptoms. She denies any other concerns or complaints at this time. Related Data Home Medications Medication Instructions Recorded Confirmed nystatin 1 applic TOPICAL TID 07/16/18 08/03/18 Previous Rx's Medication Instructions Recorded lisinopril 20 mg PO QDAY #30 tab 11/03/17 atorvastatin [Lipitor] 20 mg PO HS #30 tab 11/17/17 diclofenac sodium 75 mg 75 mg PO BID #60 tab 03/23/18 tablet,delayed release metformin 500 mg tablet 1,000 mg PO BID #360 tab 03/23/18 sumatriptan 25 mg tablet See Label Instructions PO .COMPLEX 04/20/18 #10 tab canagliflozin 300 mg tablet 300 mg PO DAILY #30 tab 06/26/18 tramadol 50 mg tablet 100 mg PO QIDP PRN #224 tab 06/26/18 hydrocodone 5 mg-acetaminophen 325 1 tab PO QID #120 tab 07/13/18 mg tablet aspirin 81 mg PO BID #0 tab 08/04/18 docusate sodium 100 mg PO BID #0 cap 08/04/18 hydromorphone 2 mg PO Q4-6H #12 tab 08/04/18 hydroxyzine pamoate 50 mg PO Q6HR PRN #0 cap 08/04/18 Allergies Allergy/AdvReac Type Severity Reaction Status Date / Time iodine [IODINE] Allergy Severe HIVES IV Verified 08/15/18 12:10 IODINE Review of Systems <STEFF Tovar - Last Filed: 08/15/18 21:36> Constitutional Denies chills, Denies fever(s), Denies lethargy and Denies weakness Eyes Denies change in vision, Denies eye discharge, Denies irritation and Denies loss of vision ENT Ears, Nose, Mouth, and Throat: Denies change in voice, Denies neck pain and Denies sore throat Cardiovascular Denies chest pain, Denies irregular heart rhythm, Denies lightheadedness, Denies palpitations, Denies dyspnea, Denies dyspnea on exertion and Denies orthopnea Respiratory Denies cough, Denies dyspnea, Denies dyspnea on exertion and Denies wheezing Gastrointestinal Gastrointestinal: Denies abdominal pain, Denies change in bowel habits, Denies diarrhea, Denies nausea and Denies vomiting Genitourinary Denies hematuria, Denies flank pain, Denies urinary incontinence and Denies urinary urgency Musculoskeletal Denies neck pain Comments: Muscle spasm /pain to left calf Integumentary/Breasts Denies pruritus, Denies erythema, Denies rash and Denies wounds Neurologic Denies confusion, Denies loss of vision and Denies weakness Psychiatric Denies anxiety, Denies confusion, Denies depression, Denies homicidal ideation and Denies suicidal ideation Endocrine Denies palpitations Hematologic/Lymphatic Denies easy bruising Allergic/Immunologic Denies wheezing Exam <STEFF Tovar - Last Filed: 08/15/18 21:36> Initial Vital Signs Initial Vital Signs: Vital Signs Pulse Rate 110 H 08/15/18 11:59 Respiratory Rate 22 08/15/18 11:59 Blood Pressure 173/89 H 08/15/18 11:59 Pulse Oximetry 100 08/15/18 11:59 Const General: cooperative and well developed Nutritional Appearance: well nourished Orientation: alert, awake, oriented x3 and not confused [facility] Mouth: oral mucosae normal and moist mucous membranes Eyes Conjunctivae: conjunctivae normal Sclera: sclerae normal Pupils: PERRL EOM: EOM intact bilaterally Neck Lymphatic: lymphedema Resp Effort & Inspection: normal respiratory effort, able to speak in complete sentences, no respiratory distress and no use of accessory muscles Auscultation: clear to auscultation bilaterally, no rales, no rhonchi and no wheezes Skin General: no rashes or lesions noted, No jaundice and No petechiae Neuro General: alert, oriented x3, gait normal and no focal motor deficits Speech: speech normal Extrem Other: left knee incision appears to be healing well with no signs of infection. No signs of trauma to the left lower extremity. Distal sensation is intact. Distal range of motion is intact. Distal pulses are intact. No swelling no erythema. <Lucia Jorge DO - Last Filed: 08/16/18 10:49> Initial Vital Signs Initial Vital Signs: Vital Signs Pulse Rate 110 H 08/15/18 11:59 Respiratory Rate 22 08/15/18 11:59 Blood Pressure 173/89 H 08/15/18 11:59 Pulse Oximetry 100 08/15/18 11:59 Course <STEFF Tovar - Last Filed: 08/15/18 21:36> Orders Ordered: Discontinued Medications Cyclobenzaprine HCl (Flexeril) 10 mg PO NOW ONE Stop: 08/15/18 12:22 Last Admin: 08/15/18 12:44 Dose: 10 mg Hydromorphone HCl (Dilaudid) 1 mg IV NOW ONE Stop: 08/15/18 12:20 Last Admin: 08/15/18 12:42 Dose: 1 mg Hydromorphone HCl (Dilaudid) 1 mg IV NOW ONE Stop: 08/15/18 13:49 Last Admin: 08/15/18 13:52 Dose: 1 mg Sodium Chloride (Normal Saline 0.9%) 1,000 mls @ 1,000 mls/hr IV BOLUS ONE Stop: 08/15/18 13:18 Last Infusion: 08/15/18 14:50 Dose: 0 mls/hr Admin: 08/15/18 12:42 Dose: 1,000 mls/hr Vital Signs - 8 hr 08/15/18 13:36 08/15/18 14:51 Pulse Rate 90 75 Respiratory Rate 16 14 Blood Pressure [Right Arm] 141/63 H 126/75 Pulse Oximetry 100 98 <Lucia Jorge DO - Last Filed: 08/16/18 10:49> Orders Ordered: Discontinued Medications Cyclobenzaprine HCl (Flexeril) 10 mg PO NOW ONE Stop: 08/15/18 12:22 Last Admin: 08/15/18 12:44 Dose: 10 mg Hydromorphone HCl (Dilaudid) 1 mg IV NOW ONE Stop: 08/15/18 12:20 Last Admin: 08/15/18 12:42 Dose: 1 mg Hydromorphone HCl (Dilaudid) 1 mg IV NOW ONE Stop: 08/15/18 13:49 Last Admin: 08/15/18 13:52 Dose: 1 mg Sodium Chloride (Normal Saline 0.9%) 1,000 mls @ 1,000 mls/hr IV BOLUS ONE Stop: 08/15/18 13:18 Last Infusion: 08/15/18 14:50 Dose: 0 mls/hr Admin: 08/15/18 12:42 Dose: 1,000 mls/hr Vital Signs - 8 hr 08/15/18 13:36 08/15/18 14:51 Pulse Rate 90 75 Respiratory Rate 16 14 Blood Pressure [Right Arm] 141/63 H 126/75 Pulse Oximetry 100 98 MDM - Extremity (Nontraumatic) <STEFF Tovar - Last Filed: 08/15/18 21:36> Lab Data Result diagrams: 08/15/18 13:30 08/15/18 13:30 Lab Results 08/15/18 08/15/18 Range/Units 13:30 13:30 WBC 9.0 (4.5-11.0) X10^3/uL RBC 4.40 (4.0-5.2) X10^6/uL Hgb 12.2 (12.0-16.0) g/dL Hct 37.7 (36-46) % MCV 85.8 (80-100) fL MCH 27.7 (26-34) PG MCHC 32.3 (30-36) % RDW 13.7 (11.6-14.8) % Plt Count 456 H (150-400) X10^3/uL Neut % (Auto) 66.3 (50-75) % Lymph % (Auto) 21.2 L (25-40) % Harmon % (Auto) 7.5 (3-14) % Eos % (Auto) 3.9 (2-4) % Baso % (Auto) 1.1 (0-2) % Neut # (Auto) 6000 H (1961-3881) /uL Sodium 145 (137-145) mmol/L Potassium 4.8 (3.4-5.1) mmol/L Chloride 107 (98-107) mmol/L Carbon Dioxide 25 (22-32) mmol/L BUN 24 H (7-17) mg/dL Creatinine 1.20 H (0.52-1.04) mg/dL Estimated GFR 46.1 L (>60) mL/min BUN/Creatinine Ratio 20.0 (6-22) Glucose 166 H (70-100) mg/dL Calcium 9.0 (8.4-10.2) mg/dL Total Bilirubin 0.4 (0.2-1.3) mg/dL AST 16 (14-36) IU/L ALT 24 (9-52) IU/L Alkaline Phosphatase 96 (38-126) U/L Total Protein 7.2 (6.3-8.2) g/dL Albumin 4.0 (3.5-5.0) g/dL Globulin 3.2 (1.7-4.1) g/dL Albumin/Globulin Ratio 1.3 (1.0-2.8) Urine Dip Bedside Urine Glucose 1000 mg/dl Bedside Urine Bilirubin - Negative Bedside Urine Ketone - Negative Urine Specific [place] 1.015 Bedside Urine Occult Blood - Negative Bedside Urine pH 6.0 Bedside Urine Protein - Negative Bedside Urine Urobilinogen - Negative Bedside Urine Nitrite - Negative Bedside Urine Leukocytes - Negative Esterase Imaging Data left lower extremity: Radiologist's impression: [place] [address] Ultrasound Report Signed Patient: Kenzie Maya [facility]#: [id number] : 9Acct:[id number] Age/Sex: 57 / FDate of Service: 08/15/18 Loc: ED Accession Number: [id number] Procedure: US perip venous low extrem lt Ordering Provider: Nabil Gamble PROCEDURE: US PERIP VENOUS LOW EXTREM LT INDICATIONS: Pain into left calf TECHNIQUE: Real-time imaging, as well as color and pulse Doppler interrogation, were performed of the lower extremity deep veins from the inguinal ligament to the popliteal fossa. COMPARISON: None. FINDINGS: The deep veins are normally compressible, and free of intraluminal thrombus. Color and pulse Doppler demonstrate normal phasic intraluminal flow. There is normal augmentation response to distal compression maneuver. IMPRESSION: No DVT found. Dictated by: Suresh Broussard M.D. on 08/15/2018 at 13:00 Approved by: Suresh Broussard M.D. on 08/15/2018 at 13:02 [facility] Narrative Medical decision making narrative: ultrasound left lower extremity was obtained and no DVT was seen. CBC was obtained and was unremarkable. Chem panel shows glucose of 166 and GFR of 46.1 with creatinine of 1.2 which consistent with her prior lab values. otherwise CMP was unremarkable. Signs and symptoms presents as a pain/cramps to left lower extremity most likely exacerbated by physical therapy yesterday. Use currently prescribed pain management regimen as needed for discomfort. Follow up with Orthopedics. For any worsening symptoms return to the emergency room. Gentle range of motion and gentle stretching to painful areas. <Lucia Jorge, - Last Filed: 08/16/18 10:49> Lab Data Lab Results 08/15/18 08/15/18 Range/Units 13:30 13:30 WBC 9.0 (4.5-11.0) X10^3/uL RBC 4.40 (4.0-5.2) X10^6/uL Hgb 12.2 (12.0-16.0) g/dL Hct 37.7 (36-46) % MCV 85.8 (80-100) fL MCH 27.7 (26-34) PG MCHC 32.3 (30-36) % RDW 13.7 (11.6-14.8) % Plt Count 456 H (150-400) X10^3/uL Neut % (Auto) 66.3 (50-75) % Lymph % (Auto) 21.2 L (25-40) % [place] % (Auto) 7.5 (3-14) % Eos % (Auto) 3.9 (2-4) % Baso % (Auto) 1.1 (0-2) % Neut # (Auto) 6000 H (8185-2062) /uL Sodium 145 (137-145) mmol/L Potassium 4.8 (3.4-5.1) mmol/L Chloride 107 (98-107) mmol/L Carbon Dioxide 25 (22-32) mmol/L BUN 24 H (7-17) mg/dL Creatinine 1.20 H (0.52-1.04) mg/dL Estimated GFR 46.1 L (>60) mL/min BUN/Creatinine Ratio 20.0 (6-22) Glucose 166 H (70-100) mg/dL Calcium 9.0 (8.4-10.2) mg/dL Total Bilirubin 0.4 (0.2-1.3) mg/dL AST 16 (14-36) IU/L ALT 24 (9-52) IU/L Alkaline Phosphatase 96 (38-126) U/L Total Protein 7.2 (6.3-8.2) g/dL Albumin 4.0 (3.5-5.0) g/dL Globulin 3.2 (1.7-4.1) g/dL Albumin/Globulin Ratio 1.3 (1.0-2.8) Urine Dip Bedside Urine Glucose 1000 mg/dl Bedside Urine Bilirubin - Negative Bedside Urine Ketone - Negative Urine Specific [place] 1.015 Bedside Urine Occult Blood - Negative Bedside Urine pH 6.0 Bedside Urine Protein - Negative Bedside Urine Urobilinogen - Negative Bedside Urine Nitrite - Negative Bedside Urine Leukocytes - Negative Esterase Discharge Plan Departure Patient Disposition: Home Clinical Impression: Leg pain, left Discharge Date/Time: 08/15/18 14:54 Interventions: ED Discharge Assessment Last Done: 08/15/18 14:52 Instructions: DI for Leg Pain Activity Restrictions/Additional Instructions: laboratory results and ultrasound were unremarkable today. signs and symptoms presents as muscle pain/cramps to left lower extremity that may have been exacerbated by physical therapy yesterday. Ensure your drinking adequate fluids. Gentle range of motion to the lower extremity and gentle stretching to help keep muscles loose. Follow up with Orthopedics. Use currently prescribed pain management regimen as instructed. For any worsening symptoms return to the emergency room. Prescriptions: No Action lisinopril 20 MG tablet 20 mg PO QDAY Qty: 30 RF: 11 atorvastatin [Lipitor] 20 MG tablet 20 mg PO HS Qty: 30 RF: 11 sumatriptan succinate [Imitrex] 25 mg tablet See Label Instructions PO .COMPLEX Qty: 10 RF: 5 tramadol 50 mg tablet 100 mg PO QIDP PRN (Reason: pain) Qty: 224 RF: 1 canagliflozin [Invokana] 300 mg tablet 300 mg PO DAILY Qty: 30 RF: 1 hydrocodone-acetaminophen [[place]] 5-325 mg tablet 1 tab PO QID Qty: 120 RF: 0 nystatin 100,000 unit/gram Cream 1 applic TOPICAL TID RF: 0 metformin 500 mg tablet 1,000 mg PO BID Qty: 360 RF: 1 diclofenac sodium 75 mg tablet,delayed release (DR/EC) 75 mg PO BID Qty: 60 RF: 0 aspirin 81 mg Tablet,Delayed Release (Dr/Ec) 81 mg PO BID Qty: 0 RF: 0 hydromorphone 2 mg Tablet 2 mg PO Q4-6H Qty: 12 RF: 0 docusate sodium 100 mg Capsule 100 mg PO BID Qty: 0 RF: 0 hydroxyzine pamoate 25 mg Capsule 50 mg PO Q6HR PRN (Reason: spasm) Qty: 0 RF: 0 Referrals: Brandon Alaniz MD [Primary Care Provider] - <Lucia Jorge DO - Last Filed: 08/16/18 10:49> Cosign ED Attending Cosignature Attestation: I was immediately available in the department for consultation. This documentation has been reviewed and I agree with assessment and plan. Supervised by Lucia Jorge DO
[2018-08-15 14:51] VITALS: BP 126/75; PULSE 75; RESP 14; O2SAT 98
== END 2018-08-15 14:54 | disposition home or self-care (01) ==
PROVIDERS: Emergency Provider Nurse Practitioner Family; PCP Internal Medicine
DX: M79.605 Pain in left leg (principal)
CPT/HCPCS: 36415; 80053; 81003; 85025; 93971; 96361; 96374; 96376; 99283; 99284; J1170

== ENCOUNTER 2018-09-06 15:01 | Emergency (ER) | payer MEDICARE, MEDICAID, OTHER, SELFPAY ==
[2018-07-31 07:24] VITALS: BMI 49.6
[2018-09-06 15:15] VITALS: BP 124/70; PULSE 88; RESP 20; TEMP 37.1; O2SAT 97; BMI 50.5
--- NOTE | 2018-09-06 16:10 | DI.US.S_ITS ---
PROCEDURE: US PERIPH VENOUS LOW EXTREM LT INDICATIONS: knee, calf pain, swelling, s/p TKR TECHNIQUE: Real-time imaging, as well as color and pulse Doppler interrogation, were performed of the lower extremity deep veins from the inguinal ligament to the popliteal fossa. COMPARISON: None. FINDINGS: The deep veins are normally compressible, and free of intraluminal thrombus. Color and pulse Doppler demonstrate normal phasic intraluminal flow. There is normal augmentation response to distal compression maneuver. IMPRESSION: No DVT found. Dictated by: Suresh Broussard M.D. on 09/06/2018 at 17:52 Approved by: Suresh Broussard M.D. on 09/06/2018 at 17:53
--- NOTE | 2018-09-06 16:10 | DI.RAD.S_ITS ---
PROCEDURE: XR KNEE LT 3V INDICATIONS: pain, effusion 1 mo postop TECHNIQUE: 3 views of the knee were acquired. COMPARISON: [facility], CR, XR KNEE LT 1TO2V, 07/31/2018, 11:06. FINDINGS: Bones: No fractures or dislocations. No suspicious bony lesions. Soft tissues: A large body habitus, suspect small joint effusion. No suspicious soft tissue calcifications. No gas in the soft tissues found. IMPRESSION: Quality of visualization is somewhat limited by large patient body habitus. There may be a small joint effusion but this is not a definite finding. The arthroplasty components appear free of disruption or loosening. Dictated by: Suresh Broussard M.D. on 09/06/2018 at 16:32 Approved by: Suresh Broussard M.D. on 09/06/2018 at 16:34
[2018-09-06] MEDS: ACETAMINOPHEN 325 MG TABLET 650 MG PO (16:20)
[2018-09-06] MEDS: TRAMADOL 50 MG TABLET 100 MG PO (16:21)
--- NOTE | 2018-09-06 16:23 | ED_ITS ---
HPI - Extremity Problem <Ruthann Fajardo PA-C - Last Filed: 09/06/18 22:02> General Chief complaint: Extremity Problem,Nontraumatic Stated complaint: post surg left knee pain x2 days Time Seen by Provider: 09/06/18 15:38 Source: patient Mode of arrival: ambulatory Limitations: no limitations History of Present Illness HPI Narrative: This 58-year-old female is about 5 weeks status post left TKR and had been doing well until 2 days ago when she began to notice redness, swelling, and pain in that knee and lower leg. She woke up with the pain, denies any trauma. She states that she came in today because the pain has been getting worse, she does feel some sensation of weakness like the knee could give out at times as well. Pain worsens with trying to bear weight. She states that the knee feels warm, but she has not had any fever. She has not had any new joint pain. She denies any dyspnea, chest pain, or other new complaints on systems review. She does not have any history of gout Related Data Home Medications Medication Instructions Recorded Confirmed nystatin 1 applic TOPICAL TID 07/16/18 08/03/18 Previous Rx's Medication Instructions Recorded lisinopril 20 mg PO QDAY #30 tab 11/03/17 atorvastatin [Lipitor] 20 mg PO HS #30 tab 11/17/17 diclofenac sodium 75 mg 75 mg PO BID #60 tab 03/23/18 tablet,delayed release metformin 500 mg tablet 1,000 mg PO BID #360 tab 03/23/18 sumatriptan 25 mg tablet See Label Instructions PO .COMPLEX 04/20/18 #10 tab canagliflozin 300 mg tablet 300 mg PO DAILY #30 tab 06/26/18 tramadol 50 mg tablet 100 mg PO QIDP PRN #224 tab 06/26/18 hydrocodone 5 mg-acetaminophen 325 1 tab PO QID #120 tab 07/13/18 mg tablet aspirin 81 mg PO BID #0 tab 08/04/18 docusate sodium 100 mg PO BID #0 cap 08/04/18 hydromorphone 2 mg PO Q4-6H #12 tab 08/04/18 hydroxyzine pamoate 50 mg PO Q6HR PRN #0 cap 08/04/18 sulfamethoxazole-trimethoprim 1 tab PO BID 7 Days #14 tab 09/06/18 [Bactrim DS] Allergies Allergy/AdvReac Type Severity Reaction Status Date / Time iodine [IODINE] Allergy Severe HIVES IV Verified 09/06/18 15:20 IODINE Review of Systems <Ruthann Fajardo PA-C - Last Filed: 09/06/18 22:02> Review of Systems All systems reviewed & are unremarkable except as noted in HPI and below Exam <Ruthann Fajardo PA-C - Last Filed: 09/06/18 22:02> Narrative Exam Narrative: GENERAL APPEARANCE: Patient sitting comfortably, in no distress. NECK/THYROID: Neck supple LUNGS: Clear to auscultation bilaterally. HEART: Regular rate and rhythm without murmur, normal S1, S2, no S3 or S4. EXTREMITIES: No cyanosis. No pedal edema. Left mid calf tender to palpation NEUROLOGIC: Alert and oriented, normal speech, and coordination. Sensation grossly intact in the lower extremities MUSCULOSKELETAL: Left knee effusion, tender to touch throughout. Full flexion and extension with endpoint tenderness DERMATOLOGIC: Left knee is erythematous and warm to touch. Incision is well- healed and dry. Erythema extends to the proximal mohan, not circumferential Initial Vital Signs Initial Vital Signs: Vital Signs Temperature 98.7 F 09/06/18 15:15 Pulse Rate 88 09/06/18 15:15 Respiratory Rate 20 09/06/18 15:15 Blood Pressure 124/70 09/06/18 15:15 Pulse Oximetry 97 09/06/18 15:15 <Lindy Hanna MD - Last Filed: 09/07/18 08:04> Initial Vital Signs Initial Vital Signs: Vital Signs Temperature 98.7 F 09/06/18 15:15 Pulse Rate 88 09/06/18 15:15 Respiratory Rate 20 09/06/18 15:15 Blood Pressure 124/70 09/06/18 15:15 Pulse Oximetry 97 09/06/18 15:15 Course <Ruthann Fajardo PA-C - Last Filed: 09/06/18 22:02> Additional Information: Dr. Hanna evaluated patient as well and suspects cellulitis. She advised a dose of IV antibiotic along with starting p.o. Bactrim, and follow up with Orthopedics. No evidence of systemic infection but inflammatory markers are a bit elevated. She was also given low-dose Toradol and advised to continue NSAID for possible gout although she has no history of this. Patient is agreeable with this plan and will call Orthopedics 1st thing in the morning. She was feeling improved prior to discharge. She agreed to return if worsening symptoms in the interim Orders Ordered: Discontinued Medications Acetaminophen (Tylenol) 650 mg PO NOW ONE Stop: 09/06/18 16:11 Last Admin: 09/06/18 16:20 Dose: 650 mg Cyclobenzaprine HCl (Flexeril) 10 mg PO NOW ONE Stop: 09/06/18 18:57 Last Admin: 09/06/18 18:59 Dose: 10 mg Sodium Chloride (Normal Saline 0.9%) 1,000 mls @ 500 mls/hr IV BOLUS PRN PRN Reason: Fluid replacement Last Infusion: 09/06/18 18:54 Dose: 0 mls/hr Admin: 09/06/18 18:09 Dose: 500 mls/hr Vancomycin HCl 1,500 mg/ (Sodium Chloride) 500 mls @ 333.333 mls/hr IV NOW ONE Stop: 09/06/18 17:43 Last Infusion: 09/06/18 20:52 Dose: 0 mls/hr Admin: 09/06/18 18:30 Dose: 333.333 mls/hr Ketorolac Tromethamine (Toradol) 15 mg IV NOW ONE Stop: 09/06/18 17:43 Last Admin: 09/06/18 18:08 Dose: 15 mg Tramadol HCl (Ultram) 100 mg PO NOW ONE Stop: 09/06/18 16:11 Last Admin: 09/06/18 16:21 Dose: 100 mg Tramadol HCl (Ultram 50mg Prepack) 1 bottle MISC SEEINSTR ONE Stop: 09/06/18 20:43 Last Admin: 09/06/18 20:53 Dose: 1 bottle Trimethoprim/Sulfamethoxazole (Bactrim Ds Prepack) 1 bottle MISC SEEINSTR ONE Stop: 09/06/18 20:10 Last Admin: 09/06/18 20:53 Dose: 1 bottle Vital Signs - 8 hr 09/06/18 15:15 09/06/18 19:00 09/06/18 21:02 Temperature 98.7 F Pulse Rate 88 83 81 Respiratory Rate 20 16 18 Blood Pressure 124/70 Blood Pressure [Left Arm] 123/86 122/41 L Pulse Oximetry 97 98 98 <Lindy Hanna MD - Last Filed: 09/07/18 08:04> Orders Ordered: Discontinued Medications Acetaminophen (Tylenol) 650 mg PO NOW ONE Stop: 09/06/18 16:11 Last Admin: 09/06/18 16:20 Dose: 650 mg Cyclobenzaprine HCl (Flexeril) 10 mg PO NOW ONE Stop: 09/06/18 18:57 Last Admin: 09/06/18 18:59 Dose: 10 mg Sodium Chloride (Normal Saline 0.9%) 1,000 mls @ 500 mls/hr IV BOLUS PRN PRN Reason: Fluid replacement Last Infusion: 09/06/18 18:54 Dose: 0 mls/hr Admin: 09/06/18 18:09 Dose: 500 mls/hr Vancomycin HCl 1,500 mg/ (Sodium Chloride) 500 mls @ 333.333 mls/hr IV NOW ONE Stop: 09/06/18 17:43 Last Infusion: 09/06/18 20:52 Dose: 0 mls/hr Admin: 09/06/18 18:30 Dose: 333.333 mls/hr Ketorolac Tromethamine (Toradol) 15 mg IV NOW ONE Stop: 09/06/18 17:43 Last Admin: 09/06/18 18:08 Dose: 15 mg Tramadol HCl (Ultram) 100 mg PO NOW ONE Stop: 09/06/18 16:11 Last Admin: 09/06/18 16:21 Dose: 100 mg Tramadol HCl (Ultram 50mg Prepack) 1 bottle MISC SEEINSTR ONE Stop: 09/06/18 20:43 Last Admin: 09/06/18 20:53 Dose: 1 bottle Trimethoprim/Sulfamethoxazole (Bactrim Ds Prepack) 1 bottle MISC SEEINSTR ONE Stop: 09/06/18 20:10 Last Admin: 09/06/18 20:53 Dose: 1 bottle Vital Signs - 8 hr 09/06/18 15:15 09/06/18 19:00 09/06/18 21:02 Temperature 98.7 F Pulse Rate 88 83 81 Respiratory Rate 20 16 18 Blood Pressure 124/70 Blood Pressure [Left Arm] 123/86 122/41 L Pulse Oximetry 97 98 98 MDM - Extremity (Nontraumatic) <Ruthann Fajardo PA-C - Last Filed: 09/06/18 22:02> Lab Data Result diagrams: 09/06/18 16:40 09/06/18 16:40 Lab Results 09/06/18 09/06/18 09/06/18 Range/Units 16:40 16:40 16:40 WBC 7.9 (4.5-11.0) X10^3/uL RBC 4.40 (4.0-5.2) X10^6/uL Hgb 12.0 (12.0-16.0) g/dL Hct 37.2 (36-46) % MCV 84.6 (80-100) fL MCH 27.2 (26-34) PG MCHC 32.1 (30-36) % RDW 14.0 (11.6-14.8) % Plt Count 318 (150-400) X10^3/uL Neut % (Auto) 63.4 (50-75) % Lymph % (Auto) 23.2 L (25-40) % Elliott % (Auto) 7.5 (3-14) % Eos % (Auto) 5.1 H (2-4) % Baso % (Auto) 0.8 (0-2) % Neut # (Auto) 5000 (3398-7573) /uL ESR (0-20) MM/HR Sodium 143 (137-145) mmol/L Potassium 4.8 (3.4-5.1) mmol/L Chloride 107 (98-107) mmol/L Carbon Dioxide 25 (22-32) mmol/L BUN 26 H (7-17) mg/dL Creatinine 1.20 H (0.52-1.04) mg/dL Estimated GFR 46.0 L (>60) mL/min BUN/Creatinine Ratio 21.7 (6-22) Glucose 176 H (70-100) mg/dL Lactate 1.2 (0.7-2.1) mmol/L Uric Acid 4.5 (2.5-6.2) mg/dL Calcium 9.2 (8.4-10.2) mg/dL Total Bilirubin 0.5 (0.2-1.3) mg/dL AST 14 (14-36) IU/L ALT 19 (9-52) IU/L Alkaline Phosphatase 104 (38-126) U/L C-Reactive Protein (<1.0) mg/dL Total Protein 7.2 (6.3-8.2) g/dL Albumin 3.8 (3.5-5.0) g/dL Globulin 3.4 (1.7-4.1) g/dL Albumin/Globulin Ratio 1.1 (1.0-2.8) 09/06/18 09/06/18 Range/Units 16:40 16:40 WBC (4.5-11.0) X10^3/uL RBC (4.0-5.2) X10^6/uL Hgb (12.0-16.0) g/dL Hct (36-46) % MCV (80-100) fL MCH (26-34) PG MCHC (30-36) % RDW (11.6-14.8) % Plt Count (150-400) X10^3/uL Neut % (Auto) (50-75) % Lymph % (Auto) (25-40) % Elliott % (Auto) (3-14) % Eos % (Auto) (2-4) % Baso % (Auto) (0-2) % Neut # (Auto) (6906-3479) /uL ESR 37 H (0-20) MM/HR Sodium (137-145) mmol/L Potassium (3.4-5.1) mmol/L Chloride (98-107) mmol/L Carbon Dioxide (22-32) mmol/L BUN (7-17) mg/dL Creatinine (0.52-1.04) mg/dL Estimated GFR (>60) mL/min BUN/Creatinine Ratio (6-22) Glucose (70-100) mg/dL Lactate (0.7-2.1) mmol/L Uric Acid (2.5-6.2) mg/dL Calcium (8.4-10.2) mg/dL Total Bilirubin (0.2-1.3) mg/dL AST (14-36) IU/L ALT (9-52) IU/L Alkaline Phosphatase (38-126) U/L C-Reactive Protein 2.5 H (<1.0) mg/dL Total Protein (6.3-8.2) g/dL Albumin (3.5-5.0) g/dL Globulin (1.7-4.1) g/dL Albumin/Globulin Ratio (1.0-2.8) <Lindy Hanna MD - Last Filed: 09/07/18 08:04> Lab Data Lab Results 09/06/18 09/06/18 09/06/18 Range/Units 16:40 16:40 16:40 WBC 7.9 (4.5-11.0) X10^3/uL RBC 4.40 (4.0-5.2) X10^6/uL Hgb 12.0 (12.0-16.0) g/dL Hct 37.2 (36-46) % MCV 84.6 (80-100) fL MCH 27.2 (26-34) PG MCHC 32.1 (30-36) % RDW 14.0 (11.6-14.8) % Plt Count 318 (150-400) X10^3/uL Neut % (Auto) 63.4 (50-75) % Lymph % (Auto) 23.2 L (25-40) % Elliott % (Auto) 7.5 (3-14) % Eos % (Auto) 5.1 H (2-4) % Baso % (Auto) 0.8 (0-2) % Neut # (Auto) 5000 (1002-7831) /uL ESR (0-20) MM/HR Sodium 143 (137-145) mmol/L Potassium 4.8 (3.4-5.1) mmol/L Chloride 107 (98-107) mmol/L Carbon Dioxide 25 (22-32) mmol/L BUN 26 H (7-17) mg/dL Creatinine 1.20 H (0.52-1.04) mg/dL Estimated GFR 46.0 L (>60) mL/min BUN/Creatinine Ratio 21.7 (6-22) Glucose 176 H (70-100) mg/dL Lactate 1.2 (0.7-2.1) mmol/L Uric Acid 4.5 (2.5-6.2) mg/dL Calcium 9.2 (8.4-10.2) mg/dL Total Bilirubin 0.5 (0.2-1.3) mg/dL AST 14 (14-36) IU/L ALT 19 (9-52) IU/L Alkaline Phosphatase 104 (38-126) U/L C-Reactive Protein (<1.0) mg/dL Total Protein 7.2 (6.3-8.2) g/dL Albumin 3.8 (3.5-5.0) g/dL Globulin 3.4 (1.7-4.1) g/dL Albumin/Globulin Ratio 1.1 (1.0-2.8) 09/06/18 09/06/18 Range/Units 16:40 16:40 WBC (4.5-11.0) X10^3/uL RBC (4.0-5.2) X10^6/uL Hgb (12.0-16.0) g/dL Hct (36-46) % MCV (80-100) fL MCH (26-34) PG MCHC (30-36) % RDW (11.6-14.8) % Plt Count (150-400) X10^3/uL Neut % (Auto) (50-75) % Lymph % (Auto) (25-40) % Elliott % (Auto) (3-14) % Eos % (Auto) (2-4) % Baso % (Auto) (0-2) % Neut # (Auto) (5285-8680) /uL ESR 37 H (0-20) MM/HR Sodium (137-145) mmol/L Potassium (3.4-5.1) mmol/L Chloride (98-107) mmol/L Carbon Dioxide (22-32) mmol/L BUN (7-17) mg/dL Creatinine (0.52-1.04) mg/dL Estimated GFR (>60) mL/min BUN/Creatinine Ratio (6-22) Glucose (70-100) mg/dL Lactate (0.7-2.1) mmol/L Uric Acid (2.5-6.2) mg/dL Calcium (8.4-10.2) mg/dL Total Bilirubin (0.2-1.3) mg/dL AST (14-36) IU/L ALT (9-52) IU/L Alkaline Phosphatase (38-126) U/L C-Reactive Protein 2.5 H (<1.0) mg/dL Total Protein (6.3-8.2) g/dL Albumin (3.5-5.0) g/dL Globulin (1.7-4.1) g/dL Albumin/Globulin Ratio (1.0-2.8) Discharge Plan Departure Patient Disposition: Home Clinical Impression: Cellulitis, Effusion of knee joint Discharge Date/Time: 09/06/18 21:03 Interventions: ED Discharge Assessment Last Done: 09/06/18 21:03 Instructions: DI for Cellulitis -- Adult Activity Restrictions/Additional Instructions: Based on your testing today, it appears that you have an infection in the skin, but it is not clear why you have fluid around the knee joint as well. You need to see orthopedics to determine whether they want to remove some of the fluid or do further testing to look for deeper infection since you had surgery on the knee last month. Please call Dr. Solo's office 1st thing in the morning and let them know you were seen in the emergency room and that we advised you to be seen within 24-48 hours for follow-up. You have been given a dose of IV antibiotic today as well as pills to start, called Bactrim or Septra. Take the 1st dose tonight, and the 2nd dose in the morning. food and nutrition services supervisor the rest of the prescription of from your pharmacy tomorrow. We have also given you a few tramadol to help with pain until you follow up. Please take this with Tylenol. Keep your leg elevated above your heart as much as possible. You should return right away if you develop acutely worsening symptoms such as spreading redness on your leg, more swelling, pain, or new fever. Prescriptions: New sulfamethoxazole-trimethoprim [Bactrim DS] 800-160 mg tablet 1 tab PO BID 7 Days Qty: 14 RF: 0 No Action lisinopril 20 MG tablet 20 mg PO QDAY Qty: 30 RF: 11 atorvastatin [Lipitor] 20 MG tablet 20 mg PO HS Qty: 30 RF: 11 sumatriptan succinate [Imitrex] 25 mg tablet See Label Instructions PO .COMPLEX Qty: 10 RF: 5 tramadol 50 mg tablet 100 mg PO QIDP PRN (Reason: pain) Qty: 224 RF: 1 canagliflozin [Invokana] 300 mg tablet 300 mg PO DAILY Qty: 30 RF: 1 hydrocodone-acetaminophen [[place]] 5-325 mg tablet 1 tab PO QID Qty: 120 RF: 0 nystatin 100,000 unit/gram Cream 1 applic TOPICAL TID RF: 0 metformin 500 mg tablet 1,000 mg PO BID Qty: 360 RF: 1 diclofenac sodium 75 mg tablet,delayed release (/EC) 75 mg PO BID Qty: 60 RF: 0 aspirin 81 mg Tablet,Delayed Release (Dr/Ec) 81 mg PO BID Qty: 0 RF: 0 hydromorphone 2 mg Tablet 2 mg PO Q4-6H Qty: 12 RF: 0 docusate sodium 100 mg Capsule 100 mg PO BID Qty: 0 RF: 0 hydroxyzine pamoate 25 mg Capsule 50 mg PO Q6HR PRN (Reason: spasm) Qty: 0 RF: 0 Referrals: Brandon Alaniz MD [Primary Care Provider] - Noni Solo MD [Physician] -
[2018-09-06 16:49] LABS: Add Manual Diff / Slide Review NO; Basophils Percent Auto 0.8 % (0-2); Eosinophils Percent Auto 5.1 % (2-4); Hematocrit 37.2 % (36-46); Lymphocytes Percent Auto 23.2 % (25-40); Mean Corpuscular HGB Conc 32.1 % (30-36); Mean Corpuscular Hemoglobin 27.2 PG (26-34); Mean Corpuscular Volume 84.6 fL (80-100); Monocytes Percent Auto 7.5 % (3-14); Neutrophils Absolute Auto 5000 /uL (3000-5900); Neutrophils Percent Auto 63.4 % (50-75); Platelet Count 318 X10^3/uL (150-400); White Blood Cell Count 7.9 X10^3/uL (4.5-11.0)
[2018-09-06 17:03] LABS: Alanine Aminotransferase 19 IU/L (9-52); Albumin 3.8 g/dL (3.5-5.0); Albumin Globulin Ratio 1.1 (1.0-2.8); Alkaline Phosphatase 104 U/L (38-126); Aspartate Aminotransferase 14 IU/L (14-36); BUN Creatinine Ratio 21.7 (6-22); Bilirubin Total 0.5 mg/dL (0.2-1.3); Blood Urea Nitrogen 26 mg/dL (7-17); Calcium 9.2 mg/dL (8.4-10.2); Carbon Dioxide 25 mmol/L (22-32); Chloride 107 mmol/L (98-107); Globulin 3.4 g/dL (1.7-4.1); Glucose 176 mg/dL (70-100); HEMOLYSIS < 15 (0-50); Lactate (Lactic Acid) 1.2 mmol/L (0.7-2.1); Potassium 4.8 mmol/L (3.4-5.1); Sodium 143 mmol/L (137-145); Total Protein 7.2 g/dL (6.3-8.2); Uric Acid 4.5 mg/dL (2.5-6.2)
[2018-09-06 17:09] LABS: C-Reactive Protein Quant 2.5 mg/dL (<1.0)
[2018-09-06 17:10] LABS: Erythrocyte Sedimentation Rate 37 MM/HR (0-20)
[2018-09-06] MEDS: KETOROLAC 60 MG/2 ML VIAL 15 MG IV (18:08)
[2018-09-06] MEDS: SODIUM CHLORIDE 0.9% 1,000 ML 500 ML IV (18:09)
[2018-09-06] MEDS: VANCOMYCIN 1,500 MG in SODIUM CHLORIDE 0.9% 500 ML 333.333 ML IV (18:30)
[2018-09-06] MEDS: CYCLOBENZAPRINE 10 MG TABLET PO (18:59)
[2018-09-06 19:00] VITALS: BP 123/86; PULSE 83; RESP 16; O2SAT 98
[2018-09-06] MEDS: TRIMETH/SULFA 160/800 PREPACK 1 BOTTLE MISC (20:53)
[2018-09-06] MEDS: TRAMADOL 50 MG PREPACK 1 BOTTLE MISC (20:53)
[2018-09-06 21:02] VITALS: BP 122/41; PULSE 81; RESP 18; O2SAT 98
== END 2018-09-06 21:03 | disposition home or self-care (01) ==
PROVIDERS: Emergency Provider Internal Medicine; PCP Internal Medicine
DX: L03.116 Cellulitis of left lower limb (principal); M25.462 Effusion, left knee
CPT/HCPCS: 36415; 36591; 73562; 80053; 83605; 84550; 85025; 85651; 86140; 93971; 96365; 96366; 96375; 99283; 99284; J1885

== ENCOUNTER → 2018-12-08 11:57 | Outpatient (CLI) | payer MEDICARE, MEDICAID, OTHER, SELFPAY ==
[2018-07-31 07:24] VITALS: BMI 49.6
[2018-12-08 12:40] LABS: Blood Urea Nitrogen 26 mg/dL (7-17); Carbon Dioxide 25 mmol/L (22-32); Chloride 103 mmol/L (98-107); Estimated Glomerular Filt Rate 41.9 mL/min (>60); Glucose 294 mg/dL (70-100); HEMOLYSIS < 15 (0-50); Potassium 4.6 mmol/L (3.4-5.1); Sodium 137 mmol/L (137-145)
[2018-12-08 12:44] LABS: Hemoglobin A1C% w Est Avg Glu 8.7 % (4.0-6.0)
[2018-12-08 14:35] LABS: Vitamin D 25 Hydroxy (D3) 17.5 ng/mL (30.0-100.0)
== END ==
PROVIDERS: PCP Student in an Organized Health Care Education/Training Program; Visit Provider Student in an Organized Health Care Education/Training Program
DX: E55.9 Vitamin D deficiency, unspecified (principal); E11.65 Type 2 diabetes mellitus with hyperglycemia; E66.01 Morbid (severe) obesity due to excess calories; I10 Essential (primary) hypertension; N18.9 Chronic kidney disease, unspecified
CPT/HCPCS: 36415; 80048; 82306; 83036

== ENCOUNTER 2019-03-03 06:12 | Emergency (ER) | payer MEDICARE, MEDICAID, OTHER, SELFPAY ==
[2018-07-31 07:24] VITALS: BMI 49.6
[2019-03-03 06:28] VITALS: BP 136/74; PULSE 98; RESP 20; TEMP 36.6; O2SAT 94; BMI 50.5
[2019-03-03 06:45] LABS: Appearance Urine UA CLEAR; Bilirubin Urine UA NEGATIVE (NEGATIVE); Color Urine UA YELLOW; Glucose Urine UA 2+ g/dL (Negative); Ketones Urine UA NEGATIVE (NEGATIVE); Leukocyte Esterase Urine UA 1+ (NEGATIVE); Nitrite Urine UA NEGATIVE (Negative); Occult Blood Urine UA 3+ (Negative); Protein Urine UA NEGATIVE (Negative); Urobilinogen Urine UA 0.2 E.U./dL (0.2)
[2019-03-03 07:00] LABS: RBC Urine 10-30/HPF (0-5/HPF)
[2019-03-03 07:01] LABS: Bacteria Urine Few (2-10); Culture Indicated Urine Specimen Cultured; Squamous Epithelial Cell Urine 1-5 /HPF (0-5/HPF); WBC Urine 5-10/HPF (0-5/HPF)
--- NOTE | 2019-03-03 07:12 | ED.FEMALEGU ---
HPI - Female Genitourinary General Chief complaint: Vaginal Bleeding Stated complaint: thinks having menstrual bleeding Time Seen by Provider: 03/03/19 07:12 Source: patient Mode of arrival: ambulatory Limitations: no limitations History of Present Illness HPI Narrative: Patient presents emergency department after noticing what seemed to be vaginal bleeding today. Patient states she has not had any abdominal pain, and has not had a period since the 1980s. Patient states she does still have her uterus. Patient denies any weight loss recently. No nausea or vomiting. No fevers. No other discharge from her vagina that seems unusual. Patient states she has not had any blood in her stools, and has not had distinct blood in her urine. She states she is currently wearing a pad and has been doing a little spotting. Patient states that she has not had a pelvic exam and at least 3 years, because she has not been sexually active in years, and she thinks that her vaginal opening has shrunk. She states nobody has been able to get a speculum in and she does not want a speculum or other vaginal exam today. No other complaints at this time. Related Data Home Medications Medication Instructions Recorded Confirmed lisinopril 20 mg PO DAILY 03/03/19 03/05/19 meloxicam 15 mg PO DAILY 03/03/19 03/05/19 Previous Rx's Medication Instructions Recorded sumatriptan 25 mg tablet See Rx Instructions PO .COMPLEX 04/20/18 #10 tab metformin 1,000 mg tablet 1,000 mg PO BID #60 tab 10/09/18 aspirin 81 mg tablet,delayed 81 mg PO DAILY #90 tab 12/08/18 release atorvastatin 20 mg tablet 20 mg PO BEDTIME #90 tab 12/08/18 glipizide ER 5 mg tablet, extended 5 mg PO DAILY #30 tab 01/15/19 release 24 hr Parking Permit... #1 ea 01/20/19 hydroxyzine HCl 25 mg tablet 50 mg PO QID PRN #120 tab 01/20/19 oxycodone-acetaminophen 7.5 mg-325 1 tab PO Q6H PRN #120 tab 01/20/19 mg tablet morphine ER 30 mg tablet,extended 30 mg PO Q12H #60 tab 02/19/19 release Allergies Allergy/AdvReac Type Severity Reaction Status Date / Time iodine [IODINE] Allergy Severe HIVES IV Verified 03/03/19 08:08 IODINE Review of Systems Constitutional Denies chills, Denies fever(s), Denies lethargy and Denies weakness Eyes Denies change in vision, Denies eye discharge, Denies irritation and Denies loss of vision ENT Ears, Nose, Mouth, and Throat: Denies change in voice, Denies neck pain and Denies sore throat Cardiovascular Denies chest pain, Denies irregular heart rhythm, Denies lightheadedness, Denies palpitations, Denies dyspnea, Denies dyspnea on exertion and Denies orthopnea Respiratory Denies cough, Denies dyspnea, Denies dyspnea on exertion and Denies wheezing Gastrointestinal Gastrointestinal: Denies abdominal pain, Denies change in bowel habits, Denies diarrhea, Denies nausea and Denies vomiting Genitourinary Denies hematuria, Denies flank pain, Denies urinary incontinence and Denies urinary urgency Comments: Vaginal bleeding Musculoskeletal Denies neck pain Integumentary/Breasts Denies pruritus, Denies erythema, Denies rash and Denies wounds Neurologic Denies confusion, Denies loss of vision and Denies weakness Psychiatric Denies anxiety, Denies confusion, Denies depression, Denies homicidal ideation and Denies suicidal ideation Endocrine Denies palpitations Hematologic/Lymphatic Denies easy bruising Allergic/Immunologic Denies wheezing [facility] Medical History Chronic back pain (Acute) History of GI bleed (Acute) History of migraine (Acute) Back pain (Chronic) DDD (degenerative disc disease), lumbar (Chronic) Diabetes mellitus (Chronic) Eczema (Chronic) Hyperlipidemia (Chronic) Hypertension (Chronic) Left knee pain (Chronic) Left shoulder pain (Chronic) Morbid obesity (Chronic) Osteoarthritis (Chronic) Postmenopausal (Chronic) Surgical History History of ankle surgery (Acute) History of delivery (Acute) Hx of hernia repair (Acute) S/P left oophorectomy (Acute) S/P tonsillectomy and adenoidectomy (Acute) History of total left knee replacement (TKR) (Resolved) Family History (Updated 05/12/18 @ 13:00 by Olivia Merrill) Father CAD (coronary artery disease) Other Diabetes mellitus Hypertension Morbid obesity Social History marital status: number of children: 5 household members: children lives independently: Yes occupational status: other ([employer]) Smoking Status: Former smoker alcohol intake: former substance use type: does not use and painkillers (hydrocodone and tramadol) Family History Father CAD (coronary artery disease) Other Diabetes mellitus Hypertension Morbid obesity Social History marital status: number of children: 5 household members: children lives independently: Yes occupational status: other ([employer]) Smoking Status: Former smoker alcohol intake: former substance use type: does not use and painkillers (hydrocodone and tramadol) Exam Initial Vital Signs Initial Vital Signs: Vital Signs Temperature 98 F 03/03/19 06:28 Pulse Rate 98 H 03/03/19 06:28 Respiratory Rate 20 03/03/19 06:28 Blood Pressure 136/74 03/03/19 06:28 Pulse Oximetry 94 03/03/19 06:28 Const General: cooperative and well developed Nutritional Appearance: well nourished Orientation: alert, awake, oriented x3 and not confused HENMA Head: normocephalic and atraumatic Ears: external ears normal Nose: external nose normal and No nasal discharge Face and sinus: face symmetric and No dry mucous membranes Mouth: oral mucosae normal and moist mucous membranes Teeth and gingiva: dentition normal Eyes General: appearance normal, both eyes and all related structures Eyelids: eyelids normal Conjunctivae: conjunctivae normal Sclera: sclerae normal Pupils: PERRL EOM: EOM intact bilaterally Neck Neck: normal visual inspection, trachea midline, No lymphadenopathy, No midline deformity and No JVD Lymphatic: No lymphedema Chest Chest: normal inspection of the chest Resp Effort & Inspection: normal respiratory effort, able to speak in complete sentences, no respiratory distress and no use of accessory muscles Auscultation: clear to auscultation bilaterally, no rales, no rhonchi and no wheezes Cardio Rate: regular rate Rhythm: regular rhythm Heart Sounds: no click, no gallops, no murmurs and no rubs Pulses: normal peripheral pulses GI Inspection: non-distended Palpation: soft, no hepatosplenomegaly, No guarding, No pulsatile mass and No tender Auscultation: normal bowel sounds Back/Spine/Pelvis Back: No CVA tenderness Cervical Spine: cervical ROM normal and No pain with cervical ROM Thoracic/Lumbar Spine: thoracic and lumbar spine normal to inspection Skin General: no rashes or lesions noted, No jaundice and No petechiae Neuro General: alert, oriented x3, gait normal and no focal motor deficits Speech: speech normal Extrem General: full ROM, no clubbing, cyanosis or edema, no pedal edema and no calf tenderness Psych Appearance: well kempt Mental Status: mental status grossly normal Attitude: cooperative Thought Content: normal and suicidality Judgment: judgment good Course Course Narrative: Patient was worked up for her vaginal bleeding, with the exception of a pelvic exam because patient had refused. Laboratory studies were unremarkable. CT was unremarkable, but pelvic ultrasound was advised by radiologist for further detail. Ultrasound was performed and found to show abnormal thickening of the endometrium. Differential was stated to include endometrial neoplasm, polyp, or hyperplasia. I did discuss the findings with the patient, and that is very important that she follow up with her OBGYN. I have discussed with her that while the findings may be benign, they may also represent cancer, and she should not delay and following up for this. Patient expresses understanding, and states she will follow up. Orders Ordered: ED Orders 03/03/19 06:42 Urinalysis and Microscopic Stat Urine Culture Stat 03/03/19 07:07 CMP [Comprehensive Metabolic Panel] Stat Complete Blood Count AUTO DIFF Stat Vital Signs - 8 hr 03/03/19 06:28 Temperature 98 F Pulse Rate 98 H Respiratory Rate 20 Blood Pressure 136/74 Pulse Oximetry 94 MDM - Female Genitourinary Medical Records Attestation: I reviewed the patient's medical records. Lab Data Attestation: I reviewed the patient's lab results. Result diagrams: 03/03/19 06:26 03/03/19 06:26 Lab Results 03/03/19 03/03/19 03/03/19 Range/Units 06:26 06:26 06:42 WBC 6.7 (4.5-11.0) X10^3/uL RBC 4.95 (4.0-5.2) X10^6/uL Hgb 13.7 (12.0-16.0) g/dL Hct 41.9 (36-46) % MCV 84.6 (80-100) fL MCH 27.7 (26-34) PG MCHC 32.7 (30-36) % RDW 14.4 (11.6-14.8) % Plt Count 291 (150-400) X10^3/uL Neut % (Auto) 66.0 (50-75) % Lymph % (Auto) 19.0 L (25-40) % Barron % (Auto) 10.4 (3-14) % Eos % (Auto) 3.7 (2-4) % Baso % (Auto) 0.9 (0-2) % Neut # (Auto) 4400 (9182-5758) /uL Lymph # (Auto) 1300 (8121-7600) /uL Barron # (Auto) 700 (0-900) /uL Eos # (Auto) 200 (0-450) /uL Baso # (Auto) 100 (0-100) /uL Sodium 136 L (137-145) mmol/L Potassium 4.0 (3.4-5.1) mmol/L Chloride 98 (98-107) mmol/L Carbon Dioxide 27 (22-32) mmol/L BUN 17 (7-17) mg/dL Creatinine 1.10 H (0.52-1.04) mg/dL Estimated GFR 50.8 L (>60) mL/min BUN/Creatinine Ratio 15.5 (6-22) Glucose 433 H (70-100) mg/dL Calcium 9.2 (8.4-10.2) mg/dL Total Bilirubin 0.7 (0.2-1.3) mg/dL AST 32 (14-36) IU/L ALT 11 (9-52) IU/L Alkaline Phosphatase 131 H (38-126) U/L Total Protein 7.1 (6.3-8.2) g/dL Albumin 3.8 (3.5-5.0) g/dL Globulin 3.3 (1.7-4.1) g/dL Albumin/Globulin Ratio 1.2 (1.0-2.8) Urine Color Yellow Urine Appearance Clear Urine pH 5.0 (4.5-8.0) Ur Specific [place] 1.020 (1.000-1.035) Urine Protein Negative (Negative) Urine Glucose (UA) 2+ H (Negative) g/dL Urine Ketones Negative (NEGATIVE) Urine Occult Blood 3+ H (Negative) Urine Nitrate Negative (Negative) Urine Bilirubin Negative (NEGATIVE) Urine Urobilinogen 0.2 (0.2) E.U./dL Ur Leukocyte Esterase 1+ H (NEGATIVE) Urine RBC 10-30/hpf H (0-5/HPF) Urine WBC 5-10/hpf H (0-5/HPF) Ur Squamous Epith Cells 1-5 /hpf (0-5/HPF) Urine Bacteria Few (2-10) H (None) Ur Culture Indicated? Specimen cultured Imaging Data Pelvic ultrasound: Radiologist's impression: PROCEDURE: US PELVIC COMPLETE INDICATIONS: POST-WILLIAM BLEEDING, PAIN TECHNIQUE: Real-time scanning was performed of the pelvic organs, with image documentation. Additional endovaginal scanning was necessary due to incomplete visualization of the adnexal and endometrial structures by transabdominal scanning. COMPARISON: [facility], CT, CT ABDOMEN PELVIS WO CON, 03/03/2019, 7:52. FINDINGS: Transabdominal scanning: No pathologic free abdominal or pelvic fluid. Endovaginal scanning: Uterus: Uterus measures 7.0 x 2.5 x 3.5 cm. The endometrium is thickened, measuring up to 1.8 cm. No definite internal vascularity on color Doppler interrogation. Ovaries: The left ovary is surgically absent. The right ovary was not visualized. No definite adnexal mass visualized. IMPRESSION: 1. Abnormal thickening of the endometrium in a postmenopausal female. Differential includes an endometrial neoplasm, polyp, or hyperplasia. Recommend further evaluation with hysteroscopy or MRI. Dictated by: Thai Kelly M.D. on 03/03/2019 at 11:22 Approved by: Thai Kelly M.D. on 03/03/2019 at 11:26 CT scan - abdomen: Radiologist's impression: PROCEDURE: CT ABDOMEN PELVIS WO CON INDICATIONS: new post-william bleeding, pain TECHNIQUE: Noncontrast 5 mm thick sections acquired from the diaphragms to the symphysis. 5 mm coronal and sagittal reformats were then performed. For radiation dose reduction, the following was used: automated exposure control, adjustment of mA and/or kV according to patient size. COMPARISON: [facility], CT, ABDOMEN/PELVIS WITHOUT CONTRAS, 08/24/2013, 11:11. [facility], CT, ABDOMEN/PELVIS WITHOUT CONTRAS, 07/30/2013, 2:59. FINDINGS: Image quality: Excellent. ABDOMEN: Lung bases: Lung bases are clear. Heart size is normal. Solid organs: Liver is normal in size. Gallbladder appears normal. Pancreas is normal in contours. Spleen is normal in size. No adrenal nodules. Kidneys are normal in size, without hydronephrosis. There are several scattered punctate calcifications within the nondistended left renal collecting system and one within the anterior cortex of the left mid kidney. On the right there are 2 calculi one measuring 2 mm and the second measuring 3.5 mm in maximal dimension, both of which appear nonobstructive at the junction of the posterior aspect of the [id number] third collecting system. No ureteral calculi are found. Several pelvic phleboliths are present near the expected course of the distal left ureter, however. Peritoneum and bowel: Unenhanced bowel loops demonstrate normal wall thickness and caliber. No free fluid or air. Nodes and vessels: No retroperitoneal or mesenteric adenopathy by size criteria. Aorta and inferior vena cava are normal in caliber. Miscellaneous: No ventral hernias. PELVIS: Genitourinary: Bladder wall thickness is normal. Miscellaneous: No inguinal hernias or adenopathy. Bones: No suspicious bony lesions. No vertebral body compression fractures. IMPRESSION: 1. No hydronephrosis found. 2. Small bilateral renal calculi are present, larger on the right than the left but none are associated with evidence of urinary tract obstruction. 3. Adjacent to the expected course of the distal left ureter are 2 punctate calculi without associated evidence of ureteral obstruction. The calculi this area in likely are phleboliths but contrast-enhancement would be necessary to determine the exact course of the distal ureter adjacent to these structures. 4. The clinical history provided suggests presence of postmenopausal vaginal bleeding. Pelvic ultrasound would be recommended if that in fact this case. Dictated by: Suresh Broussard M.D. on 03/03/2019 at 8:43 Approved by: Suresh Broussard M.D. on 03/03/2019 at 8:50 Discharge Plan Departure Patient Disposition: Home Clinical Impression: Dysfunctional uterine bleeding Discharge Date/Time: 03/03/19 11:46 Interventions: ED Discharge Assessment Last Done: 03/03/19 11:46 Instructions: DI for Vaginal Bleeding Activity Restrictions/Additional Instructions: Your ultrasound showed a thickened uterine wall, which could possibly due to fibroid tumors, which are benign growths in the uterine muscle, or could possibly be due to uterine cancer. It is very important that you follow up with an OB oral and maxillofacial surgery resident to get this sorted out. Please call today to make an appointment for follow-up. Prescriptions: No Action sumatriptan succinate [Imitrex] 25 mg tablet See Rx Instructions PO .COMPLEX Qty: 10 RF: 5 glipizide 5 mg tablet extended release 24hr 5 mg PO DAILY Qty: 30 RF: 5 morphine 30 mg tablet extended release 30 mg PO Q12H Qty: 60 RF: 0 Parking Permit... Qty: 1 RF: 0 oxycodone-acetaminophen 7.5-325 mg tablet 1 tab PO Q6H PRN (Reason: pain) Qty: 120 RF: 0 hydroxyzine HCl 25 mg tablet 50 mg PO QID PRN (Reason: dizziness, anxiety) Qty: 120 RF: 0 aspirin 81 mg tablet,delayed release (DR/EC) 81 mg PO DAILY Qty: 90 RF: 0 atorvastatin 20 mg tablet 20 mg PO BEDTIME Qty: 90 RF: 3 metformin 1,000 mg tablet 1,000 mg PO BID Qty: 60 RF: 1 meloxicam 15 mg tablet 15 mg PO DAILY RF: 0 lisinopril 20 mg tablet 20 mg PO DAILY RF: 0 Referrals: Ar Lau MD [Primary Care Provider] - Miryam Alarcon MD [Physician] -
[2019-03-03 07:20] LABS: Add Manual Diff / Slide Review NO; Basophils Absolute Auto 100 /uL (0-100); Basophils Percent Auto 0.9 % (0-2); Eosinophils Absolute Auto 200 /uL (0-450); Eosinophils Percent Auto 3.7 % (2-4); Hematocrit 41.9 % (36-46); Hemoglobin 13.7 g/dL (12.0-16.0); Lymphocytes Absolute Auto 1300 /uL (1100-4500); Mean Corpuscular HGB Conc 32.7 % (30-36); Mean Corpuscular Hemoglobin 27.7 PG (26-34); Mean Corpuscular Volume 84.6 fL (80-100); Monocytes Absolute Auto 700 /uL (0-900); Monocytes Percent Auto 10.4 % (3-14); Neutrophils Absolute Auto 4400 /uL (1500-7000); Platelet Count 291 X10^3/uL (150-400); Red Blood Cell Count 4.95 X10^6/uL (4.0-5.2); Red Cell Distribution Width 14.4 % (11.6-14.8); White Blood Cell Count 6.7 X10^3/uL (4.5-11.0)
[2019-03-03 07:25] LABS: Alanine Aminotransferase 11 IU/L (9-52); Albumin 3.8 g/dL (3.5-5.0); Albumin Globulin Ratio 1.2 (1.0-2.8); Alkaline Phosphatase 131 U/L (38-126); Aspartate Aminotransferase 32 IU/L (14-36); BUN Creatinine Ratio 15.5 (6-22); Bilirubin Total 0.7 mg/dL (0.2-1.3); Blood Urea Nitrogen 17 mg/dL (7-17); Calcium 9.2 mg/dL (8.4-10.2); Carbon Dioxide 27 mmol/L (22-32); Chloride 98 mmol/L (98-107); Estimated Glomerular Filt Rate 50.8 mL/min (>60); Globulin 3.3 g/dL (1.7-4.1); Glucose 433 mg/dL (70-100); HEMOLYSIS < 15 (0-50); Sodium 136 mmol/L (137-145); Total Protein 7.1 g/dL (6.3-8.2)
[2019-03-03 07:59] VITALS: BP 140/58; PULSE 84; RESP 16; O2SAT 96
--- NOTE | 2019-03-03 08:24 | DI.CT.S_ITS ---
PROCEDURE: CT ABDOMEN PELVIS WO CON INDICATIONS: new post-jose bleeding, pain TECHNIQUE: Noncontrast 5 mm thick sections acquired from the diaphragms to the symphysis. 5 mm coronal and sagittal reformats were then performed. For radiation dose reduction, the following was used: automated exposure control, adjustment of mA and/or kV according to patient size. COMPARISON: [facility], CT, ABDOMEN/PELVIS WITHOUT CONTRAS, 08/24/2013, 11:11. [facility], CT, ABDOMEN/PELVIS WITHOUT CONTRAS, 07/30/2013, 2:59. FINDINGS: Image quality: Excellent. ABDOMEN: Lung bases: Lung bases are clear. Heart size is normal. Solid organs: Liver is normal in size. Gallbladder appears normal. Pancreas is normal in contours. Spleen is normal in size. No adrenal nodules. Kidneys are normal in size, without hydronephrosis. There are several scattered punctate calcifications within the nondistended left renal collecting system and one within the anterior cortex of the left mid kidney. On the right there are 2 calculi one measuring 2 mm and the second measuring 3.5 mm in maximal dimension, both of which appear nonobstructive at the junction of the posterior aspect of the [id number] third collecting system. No ureteral calculi are found. Several pelvic phleboliths are present near the expected course of the distal left ureter, however. Peritoneum and bowel: Unenhanced bowel loops demonstrate normal wall thickness and caliber. No free fluid or air. Nodes and vessels: No retroperitoneal or mesenteric adenopathy by size criteria. Aorta and inferior vena cava are normal in caliber. Miscellaneous: No ventral hernias. PELVIS: Genitourinary: Bladder wall thickness is normal. Miscellaneous: No inguinal hernias or adenopathy. Bones: No suspicious bony lesions. No vertebral body compression fractures. IMPRESSION: 1. No hydronephrosis found. 2. Small bilateral renal calculi are present, larger on the right than the left but none are associated with evidence of urinary tract obstruction. 3. Adjacent to the expected course of the distal left ureter are 2 punctate calculi without associated evidence of ureteral obstruction. The calculi this area in likely are phleboliths but contrast-enhancement would be necessary to determine the exact course of the distal ureter adjacent to these structures. 4. The clinical history provided suggests presence of postmenopausal vaginal bleeding. Pelvic ultrasound would be recommended if that in fact this case. Dictated by: Suresh Broussard M.D. on 03/03/2019 at 8:43 Approved by: Suresh Broussard M.D. on 03/03/2019 at 8:50
[2019-03-03 09:09] VITALS: BP 128/51; PULSE 89; RESP 20; O2SAT 96
--- NOTE | 2019-03-03 09:09 | DI.US.S_ITS ---
PROCEDURE: US PELVIC COMPLETE INDICATIONS: POST-WILLIAM BLEEDING, PAIN TECHNIQUE: Real-time scanning was performed of the pelvic organs, with image documentation. Additional endovaginal scanning was necessary due to incomplete visualization of the adnexal and endometrial structures by transabdominal scanning. COMPARISON: [facility], CT, CT ABDOMEN PELVIS WO CON, 03/03/2019, 7:52. FINDINGS: Transabdominal scanning: No pathologic free abdominal or pelvic fluid. Endovaginal scanning: Uterus: Uterus measures 7.0 x 2.5 x 3.5 cm. The endometrium is thickened, measuring up to 1.8 cm. No definite internal vascularity on color Doppler interrogation. Ovaries: The left ovary is surgically absent. The right ovary was not visualized. No definite adnexal mass visualized. IMPRESSION: 1. Abnormal thickening of the endometrium in a postmenopausal female. Differential includes an endometrial neoplasm, polyp, or hyperplasia. Recommend further evaluation with hysteroscopy or MRI. Dictated by: Thai Kelly M.D. on 03/03/2019 at 11:22 Approved by: Thai Kelly M.D. on 03/03/2019 at 11:26
[2019-03-03 10:58] VITALS: BP 136/67; PULSE 91; RESP 20; O2SAT 97
[2019-03-03 11:41] VITALS: BP 140/75; PULSE 85; RESP 19; O2SAT 95
--- NOTE | 2019-03-09 19:54 | ED_ITS ---
HPI - Female Genitourinary General Chief complaint: Vaginal Bleeding Stated complaint: thinks having menstrual bleeding Time Seen by Provider: 03/03/19 07:12 Source: patient Mode of arrival: ambulatory Limitations: no limitations History of Present Illness HPI Narrative: Patient presents emergency department after noticing what seemed to be vaginal bleeding today. Patient states she has not had any abdominal pain , and has not had a period since the 1980s. Patient states she does still have her uterus. Patient denies any weight loss recently. No nausea or vomiting. No fevers. No other discharge from her vagina that seems unusual. Patient states she has not had any blood in her stools, and has not had distinct blood in her urine. She states she is currently wearing a pad and has been doing a little spotting. Patient states that she has not had a pelvic exam and at least 3 years, because she has not been sexually active in years, and she thinks that her vaginal opening has shrunk. She states nobody has been able to get a speculum in and she does not want a speculum or other vaginal exam today. No other complaints at this time. Related Data Home Medications Medication Instructions Recorded Confirmed lisinopril 20 mg PO DAILY 03/03/19 03/05/19 meloxicam 15 mg PO DAILY 03/03/19 03/05/19 Previous Rx's Medication Instructions Recorded sumatriptan 25 mg tablet See Rx Instructions PO .COMPLEX 04/20/18 #10 tab metformin 1,000 mg tablet 1,000 mg PO BID #60 tab 10/09/18 aspirin 81 mg tablet,delayed 81 mg PO DAILY #90 tab 12/08/18 release atorvastatin 20 mg tablet 20 mg PO BEDTIME #90 tab 12/08/18 glipizide ER 5 mg tablet, extended 5 mg PO DAILY #30 tab 01/15/19 release 24 hr Parking Permit... #1 ea 01/20/19 hydroxyzine HCl 25 mg tablet 50 mg PO QID PRN #120 tab 01/20/19 oxycodone-acetaminophen 7.5 mg-325 1 tab PO Q6H PRN #120 tab 01/20/19 mg tablet morphine ER 30 mg tablet,extended 30 mg PO Q12H #60 tab 02/19/19 release Allergies Allergy/AdvReac Type Severity Reaction Status Date / Time iodine [IODINE] Allergy Severe HIVES IV Verified 03/03/19 08:08 IODINE Review of Systems Constitutional Denies chills, Denies fever(s), Denies lethargy and Denies weakness Eyes Denies change in vision, Denies eye discharge, Denies irritation and Denies loss of vision ENT Ears, Nose, Mouth, and Throat: Denies change in voice, Denies neck pain and Denies sore throat Cardiovascular Denies chest pain, Denies irregular heart rhythm, Denies lightheadedness, Denies palpitations, Denies dyspnea, Denies dyspnea on exertion and Denies orthopnea Respiratory Denies cough, Denies dyspnea, Denies dyspnea on exertion and Denies wheezing Gastrointestinal Gastrointestinal: Denies abdominal pain, Denies change in bowel habits, Denies diarrhea, Denies nausea and Denies vomiting Genitourinary Denies hematuria, Denies flank pain, Denies urinary incontinence and Denies urinary urgency Comments: Vaginal bleeding Musculoskeletal Denies neck pain Integumentary/Breasts Denies pruritus, Denies erythema, Denies rash and Denies wounds Neurologic Denies confusion, Denies loss of vision and Denies weakness Psychiatric Denies anxiety, Denies confusion, Denies depression, Denies homicidal ideation and Denies suicidal ideation Endocrine Denies palpitations Hematologic/Lymphatic Denies easy bruising Allergic/Immunologic Denies wheezing [facility] Medical History Chronic back pain (Acute) History of GI bleed (Acute) History of migraine (Acute) Back pain (Chronic) DDD (degenerative disc disease), lumbar (Chronic) Diabetes mellitus (Chronic) Eczema (Chronic) Hyperlipidemia (Chronic) Hypertension (Chronic) Left knee pain (Chronic) Left shoulder pain (Chronic) Morbid obesity (Chronic) Osteoarthritis (Chronic) Postmenopausal (Chronic) Surgical History History of ankle surgery (Acute) History of delivery (Acute) Hx of hernia repair (Acute) S/P left oophorectomy (Acute) S/P tonsillectomy and adenoidectomy (Acute) History of total left knee replacement (TKR) (Resolved) Family History (Updated 05/12/18 @ 13:00 by Olivia Merrill) Father CAD (coronary artery disease) Other Diabetes mellitus Hypertension Morbid obesity Social History marital status: number of children: 5 household members: children lives independently: Yes occupational status: other ([employer]) Smoking Status: Former smoker alcohol intake: former substance use type: does not use and painkillers (hydrocodone and tramadol) Family History Father CAD (coronary artery disease) Other Diabetes mellitus Hypertension Morbid obesity Social History marital status: number of children: 5 household members: children lives independently: Yes occupational status: other ([employer]) Smoking Status: Former smoker alcohol intake: former substance use type: does not use and painkillers (hydrocodone and tramadol) Exam Initial Vital Signs Initial Vital Signs: Vital Signs Temperature 98 F 03/03/19 06:28 Pulse Rate 98 H 03/03/19 06:28 Respiratory Rate 20 03/03/19 06:28 Blood Pressure 136/74 03/03/19 06:28 Pulse Oximetry 94 03/03/19 06:28 Const General: cooperative and well developed Nutritional Appearance: well nourished Orientation: alert, awake, oriented x3 and not confused HENAR Head: normocephalic and atraumatic Ears: external ears normal Nose: external nose normal and No nasal discharge Face and sinus: face symmetric and No dry mucous membranes Mouth: oral mucosae normal and moist mucous membranes Teeth and gingiva: dentition normal Eyes General: appearance normal, both eyes and all related structures Eyelids: eyelids normal Conjunctivae: conjunctivae normal Sclera: sclerae normal Pupils: PERRL EOM: EOM intact bilaterally Neck Neck: normal visual inspection, trachea midline, No lymphadenopathy, No midline deformity and No JVD Lymphatic: No lymphedema Chest Chest: normal inspection of the chest Resp Effort & Inspection: normal respiratory effort, able to speak in complete sentences, no respiratory distress and no use of accessory muscles Auscultation: clear to auscultation bilaterally, no rales, no rhonchi and no wheezes Cardio Rate: regular rate Rhythm: regular rhythm Heart Sounds: no click, no gallops, no murmurs and no rubs Pulses: normal peripheral pulses GI Inspection: non-distended Palpation: soft, no hepatosplenomegaly, No guarding, No pulsatile mass and No tender Auscultation: normal bowel sounds Back/Spine/Pelvis Back: No CVA tenderness Cervical Spine: cervical ROM normal and No pain with cervical ROM Thoracic/Lumbar Spine: thoracic and lumbar spine normal to inspection Skin General: no rashes or lesions noted, No jaundice and No petechiae Neuro General: alert, oriented x3, gait normal and no focal motor deficits Speech: speech normal Extrem General: full ROM, no clubbing, cyanosis or edema, no pedal edema and no calf tenderness Psych Appearance: well kempt Mental Status: mental status grossly normal Attitude: cooperative Thought Content: normal and suicidality Judgment: judgment good Course Course Narrative: Patient was worked up for her vaginal bleeding, with the exception of a pelvic exam because patient had refused. Laboratory studies were unremarkable. CT was unremarkable, but pelvic ultrasound was advised by radiologist for further detail. Ultrasound was performed and found to show abnormal thickening of the endometrium. Differential was stated to include endometrial neoplasm, polyp, or hyperplasia. I did discuss the findings with the patient, and that is very important that she follow up with her OBGYN. I have discussed with her that while the findings may be benign, they may also represent cancer, and she should not delay and following up for this. Patient expresses understanding, and states she will follow up. Orders Ordered: ED Orders 03/03/19 06:42 Urinalysis and Microscopic Stat Urine Culture Stat 03/03/19 07:07 CMP [Comprehensive Metabolic Panel] Stat Complete Blood Count AUTO DIFF Stat Vital Signs - 8 hr 03/03/19 06:28 Temperature 98 F Pulse Rate 98 H Respiratory Rate 20 Blood Pressure 136/74 Pulse Oximetry 94 MDM - Female Genitourinary Medical Records Attestation: I reviewed the patient's medical records. Lab Data Attestation: I reviewed the patient's lab results. Result diagrams: 03/03/19 06:26 03/03/19 06:26 Lab Results 03/03/19 03/03/19 03/03/19 Range/Units 06:26 06:26 06:42 WBC 6.7 (4.5-11.0) X10^3/uL RBC 4.95 (4.0-5.2) X10^6/uL Hgb 13.7 (12.0-16.0) g/dL Hct 41.9 (36-46) % MCV 84.6 (80-100) fL MCH 27.7 (26-34) PG MCHC 32.7 (30-36) % RDW 14.4 (11.6-14.8) % Plt Count 291 (150-400) X10^3/uL Neut % (Auto) 66.0 (50-75) % Lymph % (Auto) 19.0 L (25-40) % [place] % (Auto) 10.4 (3-14) % Eos % (Auto) 3.7 (2-4) % Baso % (Auto) 0.9 (0-2) % Neut # (Auto) 4400 (2316-1526) /uL Lymph # (Auto) 1300 (1969-9922) /uL [place] # (Auto) 700 (0-900) /uL Eos # (Auto) 200 (0-450) /uL Baso # (Auto) 100 (0-100) /uL Sodium 136 L (137-145) mmol/L Potassium 4.0 (3.4-5.1) mmol/L Chloride 98 (98-107) mmol/L Carbon Dioxide 27 (22-32) mmol/L BUN 17 (7-17) mg/dL Creatinine 1.10 H (0.52-1.04) mg/dL Estimated GFR 50.8 L (>60) mL/min BUN/Creatinine Ratio 15.5 (6-22) Glucose 433 H (70-100) mg/dL Calcium 9.2 (8.4-10.2) mg/dL Total Bilirubin 0.7 (0.2-1.3) mg/dL AST 32 (14-36) IU/L ALT 11 (9-52) IU/L Alkaline Phosphatase 131 H (38-126) U/L Total Protein 7.1 (6.3-8.2) g/dL Albumin 3.8 (3.5-5.0) g/dL Globulin 3.3 (1.7-4.1) g/dL Albumin/Globulin Ratio 1.2 (1.0-2.8) Urine Color Yellow Urine Appearance Clear Urine pH 5.0 (4.5-8.0) Ur Specific Patten 1.020 (1.000-1.035) Urine Protein Negative (Negative) Urine Glucose (UA) 2+ H (Negative) g/dL Urine Ketones Negative (NEGATIVE) Urine Occult Blood 3+ H (Negative) Urine Nitrate Negative (Negative) Urine Bilirubin Negative (NEGATIVE) Urine Urobilinogen 0.2 (0.2) E.U./dL Ur Leukocyte Esterase 1+ H (NEGATIVE) Urine RBC 10-30/hpf H (0-5/HPF) Urine WBC 5-10/hpf H (0-5/HPF) Ur Squamous Epith Cells 1-5 /hpf (0-5/HPF) Urine Bacteria Few (2-10) H (None) Ur Culture Indicated? Specimen cultured Imaging Data Pelvic ultrasound: Radiologist's impression: PROCEDURE: US PELVIC COMPLETE INDICATIONS: POST-WILLIAM BLEEDING, PAIN TECHNIQUE: Real-time scanning was performed of the pelvic organs, with image documentation. Additional endovaginal scanning was necessary due to incomplete visualization of the adnexal and endometrial structures by transabdominal scanning. COMPARISON: [facility], CT, CT ABDOMEN PELVIS WO CON, 03/03/2019, 7:52. FINDINGS: Transabdominal scanning: No pathologic free abdominal or pelvic fluid. Endovaginal scanning: Uterus: Uterus measures 7.0 x 2.5 x 3.5 cm. The endometrium is thickened, measuring up to 1.8 cm. No definite internal vascularity on color Doppler interrogation. Ovaries: The left ovary is surgically absent. The right ovary was not visualized. No definite adnexal mass visualized. IMPRESSION: 1. Abnormal thickening of the endometrium in a postmenopausal female. Differential includes an endometrial neoplasm, polyp, or hyperplasia. Recommend further evaluation with hysteroscopy or MRI. Dictated by: Thai Kelly M.D. on 03/03/2019 at 11:22 Approved by: Thai Kelly M.D. on 03/03/2019 at 11:26 CT scan - abdomen: Radiologist's impression: PROCEDURE: CT ABDOMEN PELVIS WO CON INDICATIONS: new post-william bleeding, pain TECHNIQUE: Noncontrast 5 mm thick sections acquired from the diaphragms to the symphysis. 5 mm coronal and sagittal reformats were then performed. For radiation dose reduction, the following was used: automated exposure control, adjustment of mA and/or kV according to patient size. COMPARISON: [facility], CT, ABDOMEN/PELVIS WITHOUT CONTRAS, 08/24/2013, 11:11. [facility], CT, ABDOMEN/PELVIS WITHOUT CONTRAS, 07/30/2013, 2:59. FINDINGS: Image quality: Excellent. ABDOMEN: Lung bases: Lung bases are clear. Heart size is normal. Solid organs: Liver is normal in size. Gallbladder appears normal. Pancreas is normal in contours. Spleen is normal in size. No adrenal nodules. Kidneys are normal in size, without hydronephrosis. There are several scattered punctate calcifications within the nondistended left renal collecting system and one within the anterior cortex of the left mid kidney. On the right there are 2 calculi one measuring 2 mm and the second measuring 3.5 mm in maximal dimension, both of which appear nonobstructive at the junction of the posterior aspect of the alyuxi-nc-mfepctik third collecting system. No ureteral calculi are found. Several pelvic phleboliths are present near the expected course of the distal left ureter, however. Peritoneum and bowel: Unenhanced bowel loops demonstrate normal wall thickness and caliber. No free fluid or air. Nodes and vessels: No retroperitoneal or mesenteric adenopathy by size criteria. Aorta and inferior vena cava are normal in caliber. Miscellaneous: No ventral hernias. PELVIS: Genitourinary: Bladder wall thickness is normal. Miscellaneous: No inguinal hernias or adenopathy. Bones: No suspicious bony lesions. No vertebral body compression fractures. IMPRESSION: 1. No hydronephrosis found. 2. Small bilateral renal calculi are present, larger on the right than the left but none are associated with evidence of urinary tract obstruction. 3. Adjacent to the expected course of the distal left ureter are 2 punctate calculi without associated evidence of ureteral obstruction. The calculi this area in likely are phleboliths but contrast-enhancement would be necessary to determine the exact course of the distal ureter adjacent to these structures. 4. The clinical history provided suggests presence of postmenopausal vaginal bleeding. Pelvic ultrasound would be recommended if that in fact this case. Dictated by: Suresh Broussard M.D. on 03/03/2019 at 8:43 Approved by: Suresh Broussard M.D. on 03/03/2019 at 8:50 Discharge Plan Departure Patient Disposition: Home Clinical Impression: Dysfunctional uterine bleeding Discharge Date/Time: 03/03/19 11:46 Interventions: ED Discharge Assessment Last Done: 03/03/19 11:46 Instructions: DI for Vaginal Bleeding Activity Restrictions/Additional Instructions: Your ultrasound showed a thickened uterine wall, which could possibly due to fibroid tumors, which are benign growths in the uterine muscle, or could possibly be due to uterine cancer. It is very important that you follow up with an OB coal trammer to get this sorted out. Please call today to make an appointment for follow-up. Prescriptions: No Action sumatriptan succinate [Imitrex] 25 mg tablet See Rx Instructions PO .COMPLEX Qty: 10 RF: 5 glipizide 5 mg tablet extended release 24hr 5 mg PO DAILY Qty: 30 RF: 5 morphine 30 mg tablet extended release 30 mg PO Q12H Qty: 60 RF: 0 Parking Permit... Qty: 1 RF: 0 oxycodone-acetaminophen 7.5-325 mg tablet 1 tab PO Q6H PRN (Reason: pain) Qty: 120 RF: 0 hydroxyzine HCl 25 mg tablet 50 mg PO QID PRN (Reason: dizziness, anxiety) Qty: 120 RF: 0 aspirin 81 mg tablet,delayed release (DR/EC) 81 mg PO DAILY Qty: 90 RF: 0 atorvastatin 20 mg tablet 20 mg PO BEDTIME Qty: 90 RF: 3 metformin 1,000 mg tablet 1,000 mg PO BID Qty: 60 RF: 1 meloxicam 15 mg tablet 15 mg PO DAILY RF: 0 lisinopril 20 mg tablet 20 mg PO DAILY RF: 0 Referrals: Ar Lau MD [Primary Care Provider] - Miryam Alarcon MD [Physician] -
== END 2019-03-03 11:46 | disposition home or self-care (01) ==
PROVIDERS: Emergency Provider Emergency Medicine; PCP Student in an Organized Health Care Education/Training Program
DX: N93.8 Other specified abnormal uterine and vaginal bleeding (principal); R10.2 Pelvic and perineal pain
CPT/HCPCS: 74176; 76830; 76856; 80053; 81001; 85025; 87077; 87086; 87147; 99283; 99284

== ENCOUNTER 2019-03-29 06:36 | Day surgery (SDC) | payer MEDICARE, MEDICAID, OTHER, SELFPAY ==
[2018-07-31 07:24] VITALS: BMI 49.6
[2019-03-23 08:20] VITALS: BMI 51.7
[2019-03-29] VITALS (9 sets, daily range): BP systolic 121–152; BP diastolic 68–89; PULSE 91–103; RESP 13–25; TEMP 36.1–36.9; O2SAT 92–98; BMI 51.0
--- NOTE | 2019-03-29 | PATH_ITS ---
[facility] Accession Number: [id number] . 01 Material submitted: . endometrium - ENDOMETRIAL CURETTINGS . 02 Diagnosis: Endometrial Curettings: Fragments of benign endometrial polyp, negative for atypia. [facility]/03/30/2019 . 02 Electronically signed: . Oren Maurer MD, Pathologist NPI- [id number] . 01 Gross description: . ENDOMETRIAL CURETTINGS: Received in formalin are minute fragments of mucoid and hemorrhagic material measuring 0.6 x 0.6 x 0.3 cm in aggregate. Submitted in toto in 1 cassette. /[facility] /[facility] . 02 Pathologist provided ICD-10: N84.0 . 02 CPT . 964160 Performed at: 01 [facility] [address] [id number] MD Thai Carballo MD Phone: [phone] Performed at: 02 [facility] [address] [place], [place] [id number] MD Rachael Henderson MD Phone: [phone]
[2019-03-29] MEDS: LACTATED RINGERS 1,000 ML 100 ML IV (07:10)
--- NOTE | 2019-03-29 07:33 | PM.PREOP ---
Pre-operative Note Interval Note History & Physical reviewed/Exam performed by Physician: Yes Changes to H&P: No ASA Class (for procedural sedation): II
[2019-03-29] MEDS: CEFOTETAN 2 GM/50 ML PIGGYBACK IV (07:55)
--- NOTE | 2019-03-29 08:05 | SUR.OPER ---
Lithotomy on padded OR bed, head on pillow, arms secured on padded arm boards at <90 degrees abduction. Legs secured in padded yellow fins stirrups.
--- NOTE | 2019-03-29 08:31 | PM.GYNOP.1 ---
Operative Date/Time/Diagnoses Date of procedure: 03/29/19 Time of procedure: 08:32 Pre-op diagnosis: Postmenopausal bleeding Thickened endometrial stripe No recent Pap smear Post-op diagnosis: same Procedure: Procedures Operation Date: 03/29/19 07:45 Actual Procedures Side Surgeon p Hysteroscopy D&C w/pap smear eKith Jackson MD Indications: Postmenopausal bleeding No recent Pap smear Anatomical difficult Surgeon: Keith Jackson Anesthesia Type: General Operative Notes Findings: Normal size uterus Sounded to 7.5 cm Minimal to moderate amount of tissue Closure Type: not applicable Specimen(s): endometrial curettings Estimated blood loss (mL): 10 Blood products transfused: none Procedure in detail: The patient was placed supine upon the operating table. She she was placed then in the dorsal lithotomy position and examined under anesthesia. The patient's obesity precluded any useful exam. The patient was then draped and prepared in the usual fashion. The patient had a large pannicular mons pubis which had to be pushed upwards for visualization. The speculum was set in place. The cervix appeared almost nulliparous. Visualization was difficult. The cervix grasped with a toothed tenaculum. The green flexible dilator was used in the uterine cavity sounded to 7.5 cm. Uterine cervix was dilated to Hegar 7. Since there was no question of endometrial mass and because of the difficulty of visualization it was felt best not to use hysteroscopy under these conditions. Small curette was then introduced and minimal to moderate amount of tissue was then obtained without difficulty. Previously a Pap smear had been done because the patient had no recent Pap smears and anatomical considerations precluded doing a Pap smear in the office. At the end of the procedure there was minimal amounts of bleeding. The specimen was sent for pathologic exam. Pap smear was sent for pathologic exam. The speculum and tenaculum was removed. Patient was taken to the recovery room in satisfactory condition Post-operative Condition: stable Disposition: PACU Plan for aftercare: Management of diabetes Home
--- NOTE | 2019-03-29 08:35 | SUR.PHASEI ---
pt blood sugar 246. pt asymptomatic at this time. Anesthesia aware and no new orders received.
--- NOTE | 2019-03-29 08:39 | P.DS_ITS ---
History of Present Illness Date Patient Seen: 03/29/19 Time Patient Seen: 08:36 Chief complaint: Postmenopausal bleeding, thickened endometrial str Narrative: Patient is a 58-year-old morbidly obese [place] female diabetic. Patient had a small amount of postmenopausal bleeding and an ultrasound showing 11 mm endometrial stripe. Anatomical considerations in the office precluded any type of examination and the patient was scheduled for evaluation under general anesthesia for both a Pap smear and and a D&C. Discharge Providers Discharge Date: 03/29/19 Primary care physician: Ar Lau MD Discharge provider: Keith Jackson MD Summary Discharge Diagnosis: Postmenopausal bleeding No history of recent Pap smears Thickened endometrial stripe Hospital Course: Patient was admitted for Pap smear and a general anesthesia and expiration of the endometrium. Difficulty in visualization made at the better part of [place] to simply do a D&C. Minimal to moderate amounts of tissue obtained a Pap smear was obtained as well. Status at Discharge Cognitive/behavioral status at discharge: oriented Functional status at discharge: independent ambulation Overall status at discharge: patient is back to baseline Time Spent with Patient Less than 30 minutes Exam Vital Signs (past 8 hours): - 03/29/19 07:10 03/29/19 08:23 03/29/19 08:28 Temperature 98.5 F 97.0 F L Pulse Rate 97 H 103 H 101 H Respiratory Rate 15 13 20 Blood Pressure 121/68 149/86 H 142/89 H Pulse Oximetry 95 92 97 03/29/19 08:33 Temperature Pulse Rate 101 H Respiratory Rate 20 Blood Pressure 150/88 H Pulse Oximetry 98 Oxygen Delivery Method Room Air Oxygen Flow Rate 2 Narrative Exam Narrative: Minimal amounts of vaginal bleeding postprocedure Discharge Plan Discharge Plan Patient Disposition: Home Discharge Med Rec/Prescriptions Prescriptions: Continued sumatriptan succinate [Imitrex] 25 mg tablet See Rx Instructions PO .COMPLEX Qty: 10 RF: 5 glipizide 5 mg tablet extended release 24hr 5 mg PO DAILY Qty: 30 RF: 5 morphine 30 mg tablet extended release 30 mg PO Q12H Qty: 60 RF: 0 Parking Permit... Qty: 1 RF: 0 oxycodone-acetaminophen 7.5-325 mg tablet 1 tab PO Q6H PRN (Reason: pain) Qty: 120 RF: 0 hydroxyzine HCl 25 mg tablet 50 mg PO QID PRN (Reason: dizziness, anxiety) Qty: 120 RF: 0 aspirin 81 mg tablet,delayed release (DR/EC) 81 mg PO DAILY Qty: 90 RF: 0 atorvastatin 20 mg tablet 20 mg PO BEDTIME Qty: 90 RF: 3 metformin 1,000 mg tablet 1,000 mg PO BID Qty: 60 RF: 1 meloxicam 15 mg tablet 15 mg PO DAILY RF: 0 lisinopril 20 mg tablet 20 mg PO DAILY RF: 0 Follow up/Referrals: Ar Lau MD [Primary Care Provider] - Keith Jackson MD [Physician] - 04/12/19 (Patient with follow-up in approximately two weeks) Discharge Orders: Discharge (Order); Ordered 03/29/19 Ordered By: Keith Jackson Provider Discharge Instructions Diet: Carb-consistent/Diabetic Activity: Up ad terrence Skin/Wound/Dressing Care Report to your healthcare provider any signs of infection, such as:: chills, fever, increased pain, unusual drainage and unusual redness Dressing: None Other wound treatment: None Visit Report/Discharge Packet Instructions: DI for Hysteroscopy Stand Alone Forms: Surgery Discharge Discharge Data Primary Care Provider: Ar Lau Attending Provider: Keith Jackson
--- NOTE | 2019-03-29 08:59 | SUR.PHASEII ---
pt arrived to phase II via stretcher. pt laying with eyes closed, easily responds to voice when spoken to. pt denies any pain/discomfort at this time. saige-pad observed to be c/d/i. bed in lowest position and call light given to pt. pt appears comfortable at this time and awaiting arrival of ride home.
== END 2019-03-29 09:30 | disposition home or self-care (01) ==
PROVIDERS: PCP Student in an Organized Health Care Education/Training Program
PROC: 0UDB8ZZ Extraction of Endometrium, Via Natural or Artificial Opening Endoscopic (ICD-10-PCS; CPT 58558; principal; 2019-03-29 07:45)
DX: N95.0 Postmenopausal bleeding (principal); N84.0 Polyp of corpus uteri; R93.89 Abnormal findings on diagnostic imaging of other specified body structures; E66.01 Morbid (severe) obesity due to excess calories; E11.9 Type 2 diabetes mellitus without complications; Z68.43 Body mass index [BMI] 50.0-59.9, adult; Z79.84 Long term (current) use of oral hypoglycemic drugs; Z87.891 Personal history of nicotine dependence
CPT/HCPCS: 58120; 88305; J2250; J2405; J2704; J3010

== ENCOUNTER → 2019-07-09 11:25 | Outpatient (CLI) | payer MEDICARE, MEDICAID, OTHER, SELFPAY ==
[2018-07-31 07:24] VITALS: BMI 49.6
[2019-07-09 12:26] LABS: BUN Creatinine Ratio 15.6 (6-22); Blood Urea Nitrogen 14 mg/dL (7-17); Carbon Dioxide 28 mmol/L (22-32); Chloride 103 mmol/L (98-107); Estimated Glomerular Filt Rate > 60.0 mL/min (>60); Glucose 221 mg/dL (70-100); HEMOLYSIS < 15 (0-50); Hemoglobin A1C% w Est Avg Glu 9.6 % (4.0-6.0); Potassium 4.2 mmol/L (3.4-5.1); Sodium 138 mmol/L (137-145)
[2019-07-09 12:41] LABS: Vitamin D 25 Hydroxy (D3) 34.4 ng/mL (30.0-100.0)
== END ==
PROVIDERS: PCP Student in an Organized Health Care Education/Training Program; Visit Provider Student in an Organized Health Care Education/Training Program
DX: E11.65 Type 2 diabetes mellitus with hyperglycemia (principal); E55.9 Vitamin D deficiency, unspecified; N18.3 Chronic kidney disease, stage 3 (moderate)
CPT/HCPCS: 36415; 80048; 82306; 83036

== ENCOUNTER → 2019-09-14 15:09 | Outpatient (CLI) | payer MEDICARE, MEDICAID, OTHER, SELFPAY ==
[2018-07-31 07:24] VITALS: BMI 49.6
--- NOTE | 2019-09-14 15:12 | DI.MG.S_ITS ---
UNILATERAL RIGHT DIGITAL DIAGNOSTIC MAMMOGRAM 3D/2D WITH ADDITIONAL VIEWS: 09/14/2019 CLINICAL: Additional evaluation requested from prior study. Comparison is made to exams dated: 03/18/2019 mammogram - [facility] and 03/12/2012 mammogram - [facility]. There are scattered fibroglandular elements in right breast. There is a 1.6 cm irregular equal density mass with a spiculated and indistinct margin in the right breast at 5 o'clock middle depth. No other significant masses or calcifications are seen in the breast. IMPRESSION: INCOMPLETE: NEEDS ADDITIONAL IMAGING EVALUATION The 1.6 cm irregular equal density mass in the right breast is indeterminate. An ultrasound is recommended. This exam was interpreted at Station ID: [id number]. NOTE: For mammograms, a report in lay terms will be sent to the patient. Approximately 15% of breast malignancies will not be visualized mammographically. In the management of a palpable breast mass, a negative mammogram must not discourage biopsy of a clinically suspicious lesion. Electronically Signed By: Thai sanches/teodoro:09/14/2019 15:29:26 ACR BI-RADS Category 0: Incomplete [id number]
--- NOTE | 2019-09-14 15:12 | DI.US.S_ITS ---
LIMITED ULTRASOUND OF RIGHT BREAST AND AXILLA: 09/14/2019 CLINICAL: Patient returns today to evaluate a density in the right breast. Comparison is made to exams dated: 09/14/2019 mammogram - [facility], 03/18/2019 mammogram - [facility], 03/12/2012 mammogram - [facility], and 07/16/2005 mammogram - [facility]. Color flow and real-time ultrasound of the right breast 5-6 o'clock, and axilla regions were performed on the areas of interest. There is a 0.8 cm x 0.7 cm x 0.8 cm oval mass with a spiculated margin in the right breast at 5 o'clock middle depth. This oval mass is hypoechoic with posterior acoustic shadowing. This correlates with mammography findings. Color flow imaging demonstrates that there is no vascularity present. No definite suspicious enlarged lymph nodes in the right axilla. IMPRESSION: SUSPICIOUS OF MALIGNANCY The 0.8 cm x 0.7 cm x 0.8 cm oval mass in the right breast is at a high suspicion for malignancy. An ultrasound guided biopsy is recommended. The findings were discussed with the patient at the conclusion of the study by Dr. Monte. This exam was interpreted at Station ID: [id number]. Electronically Signed By: Thai sanches/:09/26/2019 11:12:37 letter sent: Biopsy Required Ultrasound BI-RADS: 4c High suspicion of malignancy
== END ==
PROVIDERS: PCP Student in an Organized Health Care Education/Training Program; Visit Provider Student in an Organized Health Care Education/Training Program
DX: R92.8 Other abnormal and inconclusive findings on diagnostic imaging of breast (principal); N63.14 Unspecified lump in the right breast, lower inner quadrant
CPT/HCPCS: 76642; 77065; G0279

== ENCOUNTER → 2019-10-21 09:13 | Outpatient (CLI) | payer MEDICARE, MEDICAID, OTHER, SELFPAY ==
[2018-07-31 07:24] VITALS: BMI 49.6
--- NOTE | 2019-10-21 | DI.MG.S_ITS ---
UNILATERAL RIGHT DIGITAL DIAGNOSTIC MAMMOGRAM POST-NEEDLE BIOPSY: 10/21/2019 CLINICAL: Right breast mass. Post clip placement. No prior exams were available for comparison. There are scattered fibroglandular elements in right breast. There is a marker clip in the appropriate position in the right breast at 5 o'clock middle depth. This marker clip placement is at the biopsy site. IMPRESSION: POST PROCEDURE MAMMOGRAM FOR MARKER PLACEMENT There was a successful marker clip placement in the right breast middle depth. This exam was interpreted at Station ID: [id number]. NOTE: For mammograms, a report in lay terms will be sent to the patient. Approximately 15% of breast malignancies will not be visualized mammographically. In the management of a palpable breast mass, a negative mammogram must not discourage biopsy of a clinically suspicious lesion. Electronically Signed By: Adrian sheldon/:10/21/2019 17:51:10 ACR BI-RADS Category Post-procedure mammogram for marker placement
--- NOTE | 2019-10-21 | PATH_ITS ---
[facility] Accession Number: [id number] . 01 Material submitted: . breast - RIGHT BREAST 5:00 3CM FN . 02 Diagnosis: Breast Mass at 5 o'clock, 3 CMFN, Ultrasound Guided Needle Core Biopsy: Invasive carcinoma with the following features: Histologic type: Infiltrating ductal carcinoma, confirmed by e-cadherin immunostudies. Greatest linear extent: 8 mm. Corn grade: 6 of 9 / Grade 2 of 3; (tubules 3/3; nuclei 2/3; mitoses 1/3). Carcinoma in situ: Ductal carcinoma in situ present, cribriform pattern with patchy necrosis, nuclear grade 2/3. Microcalcifications: Rare microcalcifications present. Lymphovascular invasion: Not identified. Prognostic markers: Please see microscopic description for results. [facility] 10/25/2019 1340 Local . 02 Comment: Results discussed with Dr. Lau on 10-22-19 at approximately 2:35 p.m. . QA performed by Dr. Henderson. . 02 Electronically signed: . Lindy Jorgensen MD, Pathologist NPI- [id number] . 01 Gross description: . Received one formalin-filled container labeled with the patient's name and labeled right breast 5 o'clock 3 cm FN. The sample is received with a plastic filter, sample loose in container and consists of multiple yellow-whiting, rough, cylindrical-shaped portions of tissue which range in size from less than 0.1 cm to 1.0 x 0.2 x 0.2 cm. The specimen is filtered, wrapped, and entirely submitted in one cassette. Collection date per container: 10-21-19. Collection time per container: 10:45. Total fixation time: Approximately 17 hours. (DC:[id number]) /SANDRA 10/22/2019 0228 Local . 02 Microscopic: . Immunohistochemistry studies were performed with the following results: . E-cadherin: Strongly and diffusely positive. P63: Absent in regions of interest. SMMS: Absent in regions of interest. . CAP BREAST BIOMARKERS: . Estrogen Receptor (ER) Status: Positive. Average intensity of staining: Strong, greater than 95% of tumor nuclei. Primary antibody: SP1 Progesterone Receptor (PgR) Status: Positive. Average intensity of staining: Weak, approximately 12% of tumor nuclei. Primary antibody: 1E2 HER2 (by immunohistochemistry): 2+ (FISH Immunohistochemistry studies pending; results will be reported as an addendum. Primary antibody: 4B5 . . Cold Ischemia and Fixation Times: Meets requirements in the latest version of the ASCO/CAP guidelines. Testing performed on Block Number: A1. . TECHNICAL NOTE: The scoring criteria for breast biomarkers by immunohistochemistry is based on the current ASCO/CAP guidelines (Nik et al, Arch Pathol Lab Med 2010: 134(6): 907-922 / Daphnie ROBIN et al, Arch Pathol Lab Med 2014: 138(2): 241-256). Deparaffinized sections of formalin fixed tissue (along with appropriate positive controls) are incubated with the above antibody(s). Using the automated [place] stainer, tissue is incubated with the designated antibody* which is then localized by a non-biotin, dual polymer detection system. The external controls are reviewed for appropriate reactivity and found to be adequate. Results on the target cell population are indicated above. These tests have not been validated on decalcified tissue. * This test was developed and its performance characteristics determined by [facility]. It has not been cleared or approved by the U.S. Food and Drug Administration. The FDA has determined that such clearance or approval is not necessary. This test is used for clinical purposes. It should not be regarded as investigational or for research. . 02 Pathologist provided ICD-10: C50.911 . 02 CPT . 332137, 435558, 494753, 189790, X06067, G58129 Performed at: 01 [facility] [address], [place], [place] [id number] MD Thai Carballo MD Phone: [phone] Performed at: 02 [facility] [place] [address] [place] [id number] MD Rachael Henderson MD Phone: [phone]
--- NOTE | 2019-10-21 09:15 | DI.US.S_ITS ---
ULTRASOUND GUIDED BIOPSY RIGHT BREAST USING VACUUM DEVICE WITH MARKING DEVICE INSERTED: 10/21/2019 CLINICAL: Right breast mass. PATIENT CONSENT: Risks (minor bleeding, infection, vasovagal reaction and repeat procedure), benefits and alternatives were explained to the patient and written informed consent was obtained. Correlation is made to exams dated: 10/21/2019 mammogram, 09/14/2019 ultrasound, 09/14/2019 mammogram - [facility], 03/18/2019 mammogram - [facility], 03/12/2012 [facility]ogram - [facility], and 07/16/2005 mammogram - [facility]. An ultrasound guided biopsy using real-time ultrasound was performed for the irregular shaped mass located in the right breast at 5 o'clock middle depth. The skin was prepped in the usual manner. Local anesthetic was administered to the access site. A small incision was made in the breast. The abnormality was approached from the lateral aspect. A biopsy needle was placed adjacent to the abnormality under ultrasound guidance. Once the needle was documented to be in the correct location, five specimens were obtained using the Mammotome biopsy system. The patient received additional local anesthetic during the procedure. A clip was inserted into the biopsy cavity. The specimens were sent to the laboratory for pathological analysis. IMPRESSION: ULTRASOUND GUIDED BIOPSY MALIGNANT Ultrasound guided biopsy of the mass in the right breast at 5 o'clock middle depth was successful. Pathology indicates malignant invasive ductal carcinoma (ID) and ductal carcinoma in situ (DCIS). Pathology results are concordant with imaging findings. A surgical/oncologic consultation is recommended. This exam was interpreted at Station ID: [id number]. Adrian sheldon,aty/:10/26/2019 19:27:06
== END ==
PROVIDERS: PCP Student in an Organized Health Care Education/Training Program; Visit Provider Student in an Organized Health Care Education/Training Program
DX: C50.311 Malignant neoplasm of lower-inner quadrant of right female breast (principal); Z17.0 Estrogen receptor positive status [ER+]
CPT/HCPCS: 19083; 77065; 88305; 88341; 88342; 88360

== ENCOUNTER → 2019-11-24 14:24 | Outpatient (CLI) | payer MEDICARE, MEDICAID, OTHER, SELFPAY ==
[2018-07-31 07:24] VITALS: BMI 49.6
[2019-11-24 16:04] LABS: Hemoglobin A1C% w Est Avg Glu 10.6 % (4.0-6.0)
[2019-11-24 16:15] LABS: BUN Creatinine Ratio 12.9 (6-22); Blood Urea Nitrogen 18 mg/dL (7-17); Calcium 9.5 mg/dL (8.4-10.2); Carbon Dioxide 28 mmol/L (22-32); Chloride 100 mmol/L (98-107); Estimated Glomerular Filt Rate 38.4 mL/min (>60); Glucose 262 mg/dL (80-110); HEMOLYSIS < 15 (0-50); Sodium 138 mmol/L (137-145)
== END ==
PROVIDERS: PCP Student in an Organized Health Care Education/Training Program; Referring Provider Student in an Organized Health Care Education/Training Program; Visit Provider Student in an Organized Health Care Education/Training Program
DX: E11.65 Type 2 diabetes mellitus with hyperglycemia (principal); I10 Essential (primary) hypertension; N18.2 Chronic kidney disease, stage 2 (mild)
CPT/HCPCS: 36415; 80048; 83036

== ENCOUNTER → 2020-07-18 13:34 | Outpatient (CLI) | payer MEDICARE, MEDICAID, OTHER, SELFPAY ==
[2018-07-31 07:24] VITALS: BMI 49.6
[2020-07-18 14:17] LABS: Hemoglobin A1C% w Est Avg Glu 11.9 % (4.0-6.0)
[2020-07-18 14:24] LABS: BUN Creatinine Ratio 18.1 (6-22); Blood Urea Nitrogen 15 mg/dL (7-17); Carbon Dioxide 25 mmol/L (22-32); Chloride 103 mmol/L (98-107); Cholesterol 153 mg/dL (140-199); Estimated Glomerular Filt Rate > 60.0 mL/min (>60); Glucose 347 mg/dL (80-110); HDL Cholesterol 42 mg/dL (40-60); HEMOLYSIS < 15 (0-50); LDL Cholesterol Calculated 77 mg/dL (<100); Potassium 4.2 mmol/L (3.4-5.1); Sodium 136 mmol/L (137-145); Triglycerides 168 mg/dL (35-150)
[2020-07-18 14:58] LABS: TSH w/ Reflex to FT4 1.13 uIU/mL (0.47-4.68)
[2020-07-18 15:14] LABS: Vitamin B12 257 pg/mL (239-931)
[2020-07-18 15:43] LABS: Vitamin D 25 Hydroxy (D3) 31.3 ng/mL (30.0-100.0)
== END ==
PROVIDERS: PCP Student in an Organized Health Care Education/Training Program; Referring Provider Student in an Organized Health Care Education/Training Program; Visit Provider Student in an Organized Health Care Education/Training Program
DX: E11.65 Type 2 diabetes mellitus with hyperglycemia (principal); E66.01 Morbid (severe) obesity due to excess calories; E78.00 Pure hypercholesterolemia, unspecified; I10 Essential (primary) hypertension; N18.2 Chronic kidney disease, stage 2 (mild); E55.9 Vitamin D deficiency, unspecified; R30.0 Dysuria
CPT/HCPCS: 36415; 80048; 80061; 82306; 82607; 83036; 84443

== ENCOUNTER → 2020-11-08 10:53 | Outpatient (CLI) | payer MEDICARE, MEDICAID, OTHER, SELFPAY ==
[2018-07-31 07:24] VITALS: BMI 49.6
[2020-11-08 11:47] LABS: Hemoglobin A1C% w Est Avg Glu 10.3 % (4.0-6.0)
== END ==
PROVIDERS: PCP Student in an Organized Health Care Education/Training Program; Referring Provider Student in an Organized Health Care Education/Training Program; Visit Provider Student in an Organized Health Care Education/Training Program
DX: E11.65 Type 2 diabetes mellitus with hyperglycemia (principal)
CPT/HCPCS: 36415; 83036

== ENCOUNTER → 2021-02-05 12:55 | Outpatient (CLI) | payer MEDICARE, MEDICAID, OTHER, SELFPAY ==
[2018-07-31 07:24] VITALS: BMI 49.6
--- NOTE | 2021-02-05 12:58 | DI.MRI.S_ITS ---
PROCEDURE: MR KNEE RT WO CON INDICATIONS: Right knee injury via internal rotation TECHNIQUE: Noncontrast sagittal PD fast spin echo and T2 fast spin echo with fat saturation, sagittal 3-D FLASH with fat saturation; coronal T1 spin echo and PD fast spin echo with fat saturation, and axial PD fast spin echo with fat saturation through the knee. COMPARISON: [facility], MR, KNEE WITHOUT CONTRAST, 01/21/2018, 12:15. FINDINGS: Image quality: Excellent. Menisci: There is peripheral displacement of medial meniscus bowing medial collateral ligament. Complex tear involving body and posterior horn of medial meniscus is seen extending to both superior and inferior articulating surfaces. There is signal abnormality involving anterior horn of lateral meniscus extending to superior articulating surface concerning for subtle anterior horn lateral meniscal tear. The meniscal root ligaments appear intact. Cruciate ligaments: Chronic myxoid degenerative changes throughout anterior cruciate ligament is seen, low-grade intrasubstance partial-thickness tear cannot be excluded. No full-thickness ACL rupture. PCL is intact. Medial structures: Moderate grade MCL sprain/partial-thickness tear is seen with significant soft tissue edema and fluid adjacent to proximal to mid MCL. . The posterior oblique ligament, semimembranosus tendon insertions, oblique popliteal ligament, and meniscocapsular junction appear intact. Visualized portions of the pes anserinus tendons appear normal. No abnormal bursal fluid. Lateral structures: The lateral collateral ligament, long and short heads of the biceps femoris tendon appear intact. The popliteus tendon appears normal; the popliteofibular ligament appears intact. The posterosuperior and anteroinferior popliteomeniscal fascicles appear intact. The arcuate and fabellofibular ligaments appear intact, on either side of the lateral inferior geniculate artery. Iliotibial band appears normal. Anterior structures: The quadriceps and patellar tendons appear intact. Patellar alignment is normal. No femoral trochlear dysplasia or ventral trochlear prominence. No edema in the infrapatellar fat pad. Bones and cartilage: Moderate tricompartmental osteoarthritis and chondromalacia is seen more prominent in medial femoral tibial compartment. Joint space: There is moderate amount of joint fluid, no gross intra-articular loose body. No Harrington's cyst. Normal appearing synovial plicae are incidentally noted. IMPRESSION: 1. Complex tear involving body and posterior horn of medial meniscus extending to both superior and inferior articulating surfaces. Peripheral displacement of medial meniscus bowing medial collateral ligament. Suggestion of subtle oblique tear involving anterior horn of lateral meniscus extending to superior articulating surface. 2. Degenerative changes and low-grade intrasubstance partial-thickness tear involving ACL. No full-thickness ACL rupture. PCL is intact. Moderate grade MCL sprain as above. 3. Moderate tricompartmental osteoarthritis and chondromalacia more prominent in medial femoral tibial compartment. 4. Moderate joint effusion, no gross intra-articular loose body. Dictated by: Duke Mancilla M.D. on 02/05/2021 at 17:11 Approved by: Duke Mancilla M.D. on 02/05/2021 at 17:19
[2021-02-05 14:07] LABS: BUN Creatinine Ratio 18.8 (6-22); Blood Urea Nitrogen 19 mg/dL (7-17); Estimated Glomerular Filt Rate 55.7 mL/min (>60)
[2021-02-05 14:13] LABS: Hemoglobin A1C% w Est Avg Glu 9.1 % (4.0-6.0)
== END ==
PROVIDERS: PCP Student in an Organized Health Care Education/Training Program; Referring Provider Student in an Organized Health Care Education/Training Program; Visit Provider Student in an Organized Health Care Education/Training Program
DX: S83.511A Sprain of anterior cruciate ligament of right knee, initial encounter (principal); S83.231A Complex tear of medial meniscus, current injury, right knee, initial encounter; S83.411A Sprain of medial collateral ligament of right knee, initial encounter; M17.11 Unilateral primary osteoarthritis, right knee; M94.261 Chondromalacia, right knee; M25.461 Effusion, right knee; E11.65 Type 2 diabetes mellitus with hyperglycemia; X58.XXXA Exposure to other specified factors, initial encounter
CPT/HCPCS: 36415; 73721; 82565; 83036; 84520

== ENCOUNTER → 2021-07-26 14:57 | Outpatient (CLI) | payer MEDICARE, MEDICAID, OTHER, SELFPAY ==
[2018-07-31 07:24] VITALS: BMI 49.6
[2021-07-26 15:23] LABS: Hemoglobin A1C% w Est Avg Glu 8.1 % (4.0-6.0)
[2021-12-21 12:38] LABS: Fecal Immunochemical Test Negative (Negative)
== END ==
PROVIDERS: PCP Student in an Organized Health Care Education/Training Program; Referring Provider Student in an Organized Health Care Education/Training Program; Visit Provider Student in an Organized Health Care Education/Training Program
DX: E11.65 Type 2 diabetes mellitus with hyperglycemia (principal)
CPT/HCPCS: 36415; 82274; 83036

== ENCOUNTER → 2021-12-19 16:34 | Outpatient (CLI) | payer MEDICARE, MEDICAID, OTHER, SELFPAY ==
[2018-07-31 07:24] VITALS: BMI 49.6
--- NOTE | 2021-12-19 16:39 | DI.MG.S_ITS ---
BILATERAL DIGITAL SCREENING MAMMOGRAM 3D/2D WITH CAD POST LUMPECTOMY: 12/19/2021 CLINICAL: Routine screening. Personal history of right breast cancer. Comparison is made to exams dated: 09/25/2020 [facility], 03/18/2019 mammogram - [facility], and 03/12/2012 [facility]. The tissue of both breasts is predominantly fatty. Current study was also evaluated with a Computer Aided Detection (CAD) system. There are benign post operative findings in the right breast. No significant masses, calcifications, or other findings are seen in either breast. There has been no significant interval change. IMPRESSION: BENIGN There is no mammographic evidence of malignancy. A 1 year screening mammogram is recommended. This exam was interpreted at Station ID: [id number]. NOTE: For mammograms, a report in lay terms will be sent to the patient. Approximately 15% of breast malignancies will not be visualized mammographically. In the management of a palpable breast mass, a negative mammogram must not discourage biopsy of a clinically suspicious lesion. Electronically Signed By: Swati gilliam/teodoro:12/20/2021 11:32:49 copy to: Ar Gauthier letter sent: Normal Exam ACR BI-RADS Category 2: Benign Finding(s) 3342F
== END ==
PROVIDERS: PCP Student in an Organized Health Care Education/Training Program; Referring Provider Student in an Organized Health Care Education/Training Program; Visit Provider Student in an Organized Health Care Education/Training Program
DX: Z12.31 Encounter for screening mammogram for malignant neoplasm of breast (principal); Z85.3 Personal history of malignant neoplasm of breast
CPT/HCPCS: 77063; 77067

== ENCOUNTER → 2022-02-26 12:53 | Outpatient (CLI) | payer MEDICARE, MEDICAID, OTHER, SELFPAY ==
[2018-07-31 07:24] VITALS: BMI 49.6
[2022-02-26 14:20] LABS: BUN Creatinine Ratio 22.2 (6-22); Blood Urea Nitrogen 24 mg/dL (7-17); Estimated Glomerular Filt Rate 58 mL/min (>60)
[2022-02-27 04:42] LABS: Fructosamine 358 umol/L (0-285)
== END ==
PROVIDERS: PCP Student in an Organized Health Care Education/Training Program; Referring Provider Student in an Organized Health Care Education/Training Program; Visit Provider Student in an Organized Health Care Education/Training Program
DX: E11.65 Type 2 diabetes mellitus with hyperglycemia (principal); N18.2 Chronic kidney disease, stage 2 (mild)
CPT/HCPCS: 36415; 82565; 82985; 84520

== ENCOUNTER → 2022-06-06 11:55 | Outpatient (CLI) | payer MEDICARE, MEDICAID, OTHER, SELFPAY ==
[2018-07-31 07:24] VITALS: BMI 49.6
--- NOTE | 2022-06-06 11:58 | DI.RAD.S_ITS ---
PROCEDURE: XR SHOULDER RT MIN 2V INDICATIONS: Right shoulder pain w/o trauma TECHNIQUE: 3 views of the shoulder were acquired. COMPARISON: [facility], , SHOULDER MINIMUM 2 VIEW LEFT, 02/12/2013, 14:40. FINDINGS: Bones: No fractures or dislocations. No suspicious bony lesions. Degenerative changes are present at the glenohumeral joint. Visualized ribs appear intact. Soft tissues: No suspicious soft tissue calcifications. IMPRESSION: Degenerative change. No acute radiographic findings. Dictated by: Margarita Camacho M.D. on 06/06/2022 at 15:03 Approved by: Margarita Camacho M.D. on 06/06/2022 at 15:04
[2022-06-06 15:02] LABS: Hemoglobin A1C% w Est Avg Glu 13.2 % (4.0-6.0)
[2022-06-06 15:05] LABS: BUN Creatinine Ratio 17.4 (6-22); Blood Urea Nitrogen 20 mg/dL (7-17); Calcium 9.1 mg/dL (8.4-10.2); Carbon Dioxide 25 mmol/L (22-32); Chloride 102 mmol/L (98-107); Estimated Glomerular Filt Rate 54 mL/min (>60); Glucose 262 mg/dL (80-110); HEMOLYSIS < 15 (0-50); Sodium 133 mmol/L (137-145)
[2022-06-06 15:35] LABS: Potassium 5.4 mmol/L (3.4-5.1)
== END ==
PROVIDERS: PCP Student in an Organized Health Care Education/Training Program; Referring Provider Student in an Organized Health Care Education/Training Program; Visit Provider Student in an Organized Health Care Education/Training Program
DX: E11.65 Type 2 diabetes mellitus with hyperglycemia (principal); M12.811 Other specific arthropathies, not elsewhere classified, right shoulder; N18.2 Chronic kidney disease, stage 2 (mild)
CPT/HCPCS: 36415; 73030; 80048; 83036

== ENCOUNTER → 2023-01-28 14:50 | Outpatient (CLI) | payer MEDICARE, MEDICAID, OTHER, SELFPAY ==
[2022-12-23 12:37] VITALS: BMI 49.6
[2023-01-28 15:29] LABS: Add Manual Diff / Slide Review NO; Basophils Absolute Auto 0 /uL (0-100); Basophils Percent Auto 0.8 % (0-2); Eosinophils Absolute Auto 200 /uL (0-450); Eosinophils Percent Auto 3.4 % (2-4); Hematocrit 36.4 % (36-46); Hemoglobin 11.9 g/dL (12.0-16.0); Lymphocytes Absolute Auto 1300 /uL (1100-4500); Lymphocytes Percent Auto 21.7 % (25-40); Mean Corpuscular HGB Conc 32.7 % (30-36); Mean Corpuscular Hemoglobin 27.8 PG (26-34); Monocytes Absolute Auto 400 /uL (0-900); Monocytes Percent Auto 6.2 % (3-14); Neutrophils Absolute Auto 4200 /uL (1500-7000); Neutrophils Percent Auto 67.9 % (50-75); Platelet Count 272 X10^3/uL (150-400); Red Blood Cell Count 4.28 X10^6/uL (4.0-5.2); Red Cell Distribution Width 14.4 % (11.6-14.8); White Blood Cell Count 6.2 X10^3/uL (4.5-11.0)
[2023-01-28 15:44] LABS: Alanine Aminotransferase 14 IU/L (<35); Albumin 3.5 g/dL (3.5-5.0); Albumin Globulin Ratio 1.1 (1.0-2.8); Alkaline Phosphatase 78 U/L (38-126); Aspartate Aminotransferase 14 IU/L (14-36); BUN Creatinine Ratio 17.9 (6-22); Bilirubin Total 0.6 mg/dL (0.2-1.3); Blood Urea Nitrogen 17 mg/dL (7-17); Calcium 9.1 mg/dL (8.4-10.2); Carbon Dioxide 29 mmol/L (22-32); Chloride 104 mmol/L (98-107); Estimated Glomerular Filt Rate > 60 mL/min (>60); Globulin 3.3 g/dL (1.7-4.1); Glucose 249 mg/dL (80-110); HEMOLYSIS < 15 (0-50); Potassium 4.4 mmol/L (3.4-5.1); Sodium 141 mmol/L (137-145); Total Protein 6.8 g/dL (6.3-8.2)
[2023-01-28 16:15] LABS: TSH w/ Reflex to FT4 0.17 uIU/mL (0.47-4.68)
[2023-01-28 16:33] LABS: Vitamin B12 181 pg/mL (239-931)
[2023-01-28 17:44] LABS: Free T4, Direct Thyroxine 1.23 ng/dL (0.78-2.19)
[2023-01-29 08:52] LABS: x Labcorp Estim. Avg Glu (eAG) 189 mg/dL (.); x Labcorp Hemoglobin A1c 8.2 % (4.8-5.6)
== END ==
PROVIDERS: PCP Student in an Organized Health Care Education/Training Program; Referring Provider Student in an Organized Health Care Education/Training Program; Visit Provider Student in an Organized Health Care Education/Training Program
DX: E11.65 Type 2 diabetes mellitus with hyperglycemia (principal); I10 Essential (primary) hypertension; N18.2 Chronic kidney disease, stage 2 (mild); Z79.899 Other long term (current) drug therapy; R19.7 Diarrhea, unspecified
CPT/HCPCS: 36415; 80053; 82607; 83036; 84439; 84443; 85025

== ENCOUNTER → 2023-09-26 13:04 | Outpatient (CLI) | payer MEDICARE, MEDICAID, OTHER, SELFPAY ==
[2023-09-18 13:37] VITALS: BMI 49.6
--- NOTE | 2023-09-26 13:07 | DI.RAD.S_ITS ---
PROCEDURE: XR LUMBAR SPINE 2-3V INDICATIONS: degeneration of intervertebral disc TECHNIQUE: 3 views of the lumbar spine were acquired. COMPARISON: [facility], , L-SPINE 2-3 VIEWS, 01/29/2018, 12:44. FINDINGS: Bones: 5 [id number] vertebrae are present. There is normal bony alignment. Multilevel moderate disc and foraminal narrowing are present most severe at L5-S1. Multilevel anterior osteophytes are present. No distinct erosions. No vertebral body compression fractures. No suspicious bony lesions. Soft tissues: Overlying bowel gas pattern is normal. No suspicious soft tissue calcifications. IMPRESSION: Degenerative changes most severe at L5-S1. Dictated by: Rosie Bauer M.D. on 09/26/2023 at 17:12 Approved by: Rosie Bauer M.D. on 09/26/2023 at 17:13
[2023-09-26 14:16] LABS: Hemoglobin A1C% w Est Avg Glu 8.3 % (4.0-6.0)
[2023-09-26 14:23] LABS: Alanine Aminotransferase 13 IU/L (<35); Albumin 3.9 g/dL (3.5-5.0); Alkaline Phosphatase 89 U/L (38-126); Aspartate Aminotransferase 18 IU/L (14-36); BUN Creatinine Ratio 13.1 (6-22); Blood Urea Nitrogen 14 mg/dL (7-17); Calcium 9.4 mg/dL (8.4-10.2); Carbon Dioxide 27 mmol/L (22-32); Chloride 103 mmol/L (98-107); Cholesterol 158 mg/dL (140-199); Estimated Glomerular Filt Rate 58 mL/min (>60); Globulin 3.9 g/dL (1.7-4.1); Glucose 217 mg/dL (80-110); HDL Cholesterol 34 mg/dL (40-60); HEMOLYSIS 17 (0-50); LDL Cholesterol Calculated 93 mg/dL (<100); Sodium 139 mmol/L (137-145); Total Protein 7.8 g/dL (6.3-8.2); Triglycerides 155 mg/dL (35-150)
[2023-09-26 14:40] LABS: Free T4, Direct Thyroxine 1.43 ng/dL (0.78-2.19)
[2023-09-26 14:54] LABS: Thyroid Stimulating Hormone 0.308 uIU/mL (0.47-4.68)
== END ==
PROVIDERS: PCP Family Medicine; Referring Provider Family Medicine; Visit Provider Family Medicine
DX: M47.817 Spondylosis without myelopathy or radiculopathy, lumbosacral region (principal); M50.320 Other cervical disc degeneration, mid-cervical region, unspecified level; E11.22 Type 2 diabetes mellitus with diabetic chronic kidney disease; I12.9 Hypertensive chronic kidney disease with stage 1 through stage 4 chronic kidney disease, or unspecified chronic kidney disease; N18.2 Chronic kidney disease, stage 2 (mild); E11.65 Type 2 diabetes mellitus with hyperglycemia; E11.69 Type 2 diabetes mellitus with other specified complication; E78.00 Pure hypercholesterolemia, unspecified
CPT/HCPCS: 36415; 72100; 80053; 80061; 83036; 84439; 84443

== ENCOUNTER 2024-04-13 07:57 | Day surgery (SDC) | payer MEDICARE, MEDICAID, OTHER, SELFPAY ==
[2023-11-14 16:06] VITALS: BMI 49.6
--- NOTE | 2024-04-13 | PATH_ITS ---
[facility] Accession Number: [id number] No. of containers..01 Tissue . 01 Material submitted: . colon - TRANSVERSE POLYP . 01 Diagnosis: TRANSVERSE POLYP: Tubular adenoma. [facility] 04/15/2024 1259 Local . 01 Electronically signed: . Thai Carballo MD, Pathologist NPI- [id number] . 01 Gross description: . Received in formalin with two patient identifiers and transverse colon polyp, are two ch soft tissue fragments, 0.3 to 0.5 cm in greatest dimension. Submitted in A1. (KB:cmc10 [id number]) /MRV 04/15/2024 1259 Local . 01 Pathologist provided ICD-10: D12.3 . 01 CPT . 965277 Specimen Comment: A courtesy copy of this report has been sent to [phone] Performed at: [address] [facility] [id number] MD Thai Carballo MD Phone: [phone]
[2024-04-13 08:22] VITALS: BP 122/84; PULSE 101; RESP 18; TEMP 36.6; O2SAT 96
--- NOTE | 2024-04-13 08:39 | PM.HP.1 ---
History of Present Illness History of Present Illness Date Patient Seen: 04/13/24 Time Patient Seen: 08:39 Chief complaint: Screening Colonoscopy Narrative: 63-year-old woman here for 1st time screening colonoscopy. No family history of colon cancer. No abdominal concerns today. [facility] Medical History Lumbar spondylosis Low back pain Nephrolithiasis Adhesive capsulitis of shoulder Migraines Shoulder pain Breast cancer (~2020) Degenerative disk disease Heartburn Allergies Vitamin D insufficiency History of GI bleed Chronic back pain History of migraine Eczema Postmenopausal Left shoulder pain Osteoarthritis Left knee pain Back pain DDD (degenerative disc disease), lumbar Morbid obesity Diabetes mellitus Surgical History History of total left knee replacement (TKR) History of ankle surgery History of delivery S/P tonsillectomy and adenoidectomy Hx of hernia repair S/P left oophorectomy Family History Father CAD (coronary artery disease) Other Diabetes mellitus Hypertension Morbid obesity Social History marital status: number of children: 5 household members: children lives independently: Yes occupational status: other Smoking Status: Former smoker alcohol intake: former substance use type: does not use and painkillers Meds Home Medications and Allergies Home Medications Medication Instructions Recorded Confirmed Type atorvastatin 20 mg tablet 20 mg PO BEDTIME #90 tabs 11/16/22 04/13/24 Rx TRUE METRIX STRIPS #400 ea 02/28/23 03/30/24 Rx blood-glucose meter (True Metrix #1 ea 02/28/23 03/30/24 Rx Glucose Meter) lancets 33 gauge #100 ea 02/28/23 03/30/24 Rx naloxone 4 mg/actuation nasal spray 4 mg intranasal Q2M PRN opioid 11/14/23 03/30/24 Rx overdose #2 ea Disabled Parking Permint #1 ea 01/12/24 03/30/24 Rx lisinopril 20 mg tablet 20 mg PO DAILY #90 tabs 02/09/24 04/13/24 Rx pen needle, diabetic 32 gauge x #200 ea 02/09/24 03/30/24 Rx / (NovoFine Plus) sumatriptan succinate 25 mg tablet See Rx Instructions .Route 02/09/24 04/13/24 Rx .COMPLEX #42 tabs insulin aspart 15 unit SUBCUT QAC #15 mL 02/11/24 04/13/24 Rx (niacinamide)(U-100) 100 unit/mL(3 mL) subcutaneous pen (Fiasp FlexTouch U-100 Insulin) BD Ultra-Fine Debbi Pen Needle 32 1 ea miscellaneous TIDWMEAL #200 ea 02/13/24 03/30/24 Rx gauge x 5/32 (pen needle, diabetic) hydroxyzine HCl 50 mg tablet 50 mg PO QID PRN dizziness, 02/19/24 04/13/24 Rx anxiety #60 tabs gabapentin 100 mg capsule 100 mg PO .COMPLEX #90 caps 03/29/24 04/13/24 Rx insulin glargine 100 unit/mL (3 30 unit SUBCUT BID 03/30/24 04/13/24 History mL) subcutaneous pen (Basaglar KwikPen U-100 Insulin) lorazepam 1 mg tablet 1 mg PO DAILY PRN sedation #10 tabs 03/30/24 04/13/24 Rx morphine 30 mg tablet,extended 30 mg PO Q12H #60 tabs 03/30/24 04/13/24 Rx release oxycodone-acetaminophen 5 mg-325 1 tab PO BID PRN pain #60 tabs 03/30/24 04/13/24 Rx mg tablet Allergies Allergy/AdvReac Type Severity Reaction Status Date / Time iodine [IODINE] Allergy Severe HIVES IV Verified 04/13/24 08:16 IODINE Exam Vital Signs (past 8 hours): - 04/13/24 08:22 Temperature 97.8 F Pulse Rate 101 H Respiratory Rate 18 Blood Pressure 122/84 Pulse Oximetry 96 Oxygen Delivery Method Room Air Oxygen Delivery Method Room Air Narrative Exam Narrative: General adult woman alert oriented no acute distress Chest nonlabored respiration Extremities warm well perfused Assessment & Plan Assessment & Plan narrative: The patient requires colorectal screening and colonoscopy is recommended. Technical details were discussed. Risks, benefits, alternatives explained. Risks including but not limited to myocardial infarction, aspiration, bleeding, pain, missed lesion, incomplete examination, need for further radiographic studies, intestinal injury, and need for major abdominal surgery were discussed. All questions were answered to their satisfaction, and they are in agreement with this plan.
[2024-04-13] MEDS: LACTATED RINGERS 1,000 ML 42 ML IV (08:42)
[2024-04-13 09:11] VITALS: BP 112/64; PULSE 84; RESP 24; TEMP 36.2; O2SAT 97
[2024-04-13 09:16] VITALS: BP 121/66; PULSE 84; RESP 24; TEMP 36.2; O2SAT 96
--- NOTE | 2024-04-13 09:16 | P.OP.COLON_ITS ---
Operative Date/Time/Diagnoses Date of procedure: 04/13/24 Time of procedure: 09:16 Pre-op diagnosis: Colorectal screening Post-op diagnosis: other (Colonic polyp x1) Procedure & Clinicians Study performed: Screening colonoscopy Same procedure as scheduled: Yes Indications: Colorectal screening Surgeon: Iker Fitch Procedure Notes Procedure in detail: The history and physical was performed/updated and the patient is ASA class is 3. The procedure was discussed in detail with the patient. Potential risks complications including infection, bleeding, missed diagnosis, perforation, need for surgery, and were explained. Their questions were answered and informed consent was obtained. Patient was brought to the procedure room and placed standard monitoring equipment. The patient's vital signs were monitored continuously throughout the entire procedure. Prior to starting time-out was performed. The patient was placed in the left lateral recumbent position. Procedural sedation was administered by anesthesia. Examination began with a thorough inspection of the perianal area there was no evidence of fissures, fistulae, external hemorrhoids or cutaneous malignancy. The colonoscopy scope was then placed into the anal ca nal and was advanced to the cecum, which was identified by the ileocecal valve, the appendiceal orifice and the confluence of the taenia. The scope was then slowly withdrawn examining colon thoroughly in all directions, irrigating it of any residual stool. The scope was retroflexed within the rectum The patient tolerated the procedure well. They will be discharged once criteria are met. The prep was of fair quality. The withdrawl time was 6 minutes. FINDINGS * Transverse colon 5 mm polyp removed with cold snare. * Internal hemorrhoids Specimen(s): other (Transverse colon polyp) Impression: Colonic polyp x1 Post-procedure Plan for aftercare: Follow up dependent on pathology findings likely 5 years Disposition: same day surgery
[2024-04-13 09:22] VITALS: BP 97/55; PULSE 88; RESP 15; TEMP 36.3; O2SAT 97
[2024-04-13 09:27] VITALS: BP 131/71; PULSE 90; RESP 20; TEMP 36.3; O2SAT 98
== END 2024-04-13 09:37 | disposition home or self-care (01) ==
PROVIDERS: PCP Family Medicine; Referring Provider Surgery; Visit Provider Surgery
PROC: 0DJD8ZZ Inspection of Lower Intestinal Tract, Via Natural or Artificial Opening Endoscopic (ICD-10-PCS; CPT 45378; principal; 2024-04-13 08:45)
DX: Z12.11 Encounter for screening for malignant neoplasm of colon (principal); K64.8 Other hemorrhoids; D12.3 Benign neoplasm of transverse colon
CPT/HCPCS: 45385; J2704

== ENCOUNTER → 2024-11-15 12:54 | Outpatient (CLI) | payer MEDICARE, MEDICAID, SELFPAY ==
[2023-11-14 16:06] VITALS: BMI 49.6
--- NOTE | 2024-11-15 12:55 | DI.RAD.S_ITS ---
PROCEDURE: XR CHEST 2V INDICATIONS: eval cough TECHNIQUE: 2 views of the chest were acquired. COMPARISON: None. FINDINGS: Surgical changes and devices: Surgical clips project over the right hemithorax. Lungs and pleura: Lungs are clear. No pleural effusions or pneumothorax. Mediastinum: Mediastinal contours are normal. Heart size is normal. Bones and chest wall: No suspicious bony abnormalities. Soft tissues appear unremarkable. IMPRESSION: No acute cardiopulmonary abnormality is seen. Dictated by: Nabil Malave M.D. on 11/15/2024 at 15:42 Approved by: Nabil Malave M.D. on 11/15/2024 at 15:43
== END ==
PROVIDERS: PCP Family Medicine; Referring Provider Family Medicine; Visit Provider Family Medicine
DX: J40 Bronchitis, not specified as acute or chronic (principal); R05.9 Cough, unspecified
CPT/HCPCS: 71046

== ENCOUNTER → 2025-09-09 14:32 | Outpatient (CLI) | payer MEDICARE, MEDICAID, SELFPAY ==
[2023-11-14 16:06] VITALS: BMI 49.6
[2025-09-09 15:14] LABS: Add Manual Diff / Slide Review NO; Hematocrit 37.0 % (36-46); Hemoglobin 12.2 g/dL (12.0-16.0); Lymphocytes Absolute Auto 1800 /uL (1100-4500); Mean Corpuscular HGB Conc 33.0 % (30-36); Mean Corpuscular Hemoglobin 28.1 PG (26-34); Mean Corpuscular Volume 85.0 fL (80-100); Platelet Count 279 X10^3/uL (150-400)
[2025-09-09 15:30] LABS: Hemoglobin A1C% w Est Avg Glu 6.6 % (4.0-6.0)
[2025-09-09 15:34] LABS: Alanine Aminotransferase 11 IU/L (<35); Albumin 3.5 g/dL (3.5-5.0); Albumin Globulin Ratio 1.2 (1.0-2.8); Alkaline Phosphatase 95 U/L (38-126); Blood Urea Nitrogen 21 mg/dL (7-17); Calcium 8.7 mg/dL (8.4-10.2); Carbon Dioxide 26 mmol/L (22-32); Chloride 109 mmol/L (98-107); Cholesterol 124 mg/dL (140-199); Estimated Glomerular Filt Rate 54 mL/min (>60); Globulin 3.0 g/dL (1.7-4.1); Glucose 186 mg/dL (70-99); HDL Cholesterol 48 mg/dL (40-60); HEMOLYSIS < 15 (0-50); Potassium 4.6 mmol/L (3.4-5.1); Sodium 141 mmol/L (137-145); Total Protein 6.5 g/dL (6.3-8.2); Triglycerides 85 mg/dL (35-150)
[2025-09-09 16:05] LABS: TSH w/ Reflex to FT4 0.64 uIU/mL (0.47-4.68)
== END ==
PROVIDERS: PCP Family Medicine; Referring Provider Family Medicine; Visit Provider Family Medicine
DX: F32.9 Major depressive disorder, single episode, unspecified (principal); E11.65 Type 2 diabetes mellitus with hyperglycemia; E66.01 Morbid (severe) obesity due to excess calories; I10 Essential (primary) hypertension; E78.00 Pure hypercholesterolemia, unspecified; N18.2 Chronic kidney disease, stage 2 (mild)
CPT/HCPCS: 36415; 80053; 80061; 83036; 84443; 85025

== ENCOUNTER 2025-09-19 16:19 | Emergency (ER) | payer MEDICARE, MEDICAID, SELFPAY ==
[2023-11-14 16:06] VITALS: BMI 49.6
[2025-09-19 16:28] VITALS: BP 173/74; PULSE 77; RESP 18; TEMP 36.4; O2SAT 95; BMI 53.3
--- NOTE | 2025-09-19 16:50 | DI.RAD.S_ITS ---
PROCEDURE: XR CHEST 1V INDICATIONS: Chest Pain TECHNIQUE: One view of the chest was acquired. COMPARISON: [facility], CR, XR CHEST 2V, 11/15/2024, 13:03. FINDINGS: Surgical changes and devices: None. Lungs and pleura: Lungs are clear. No pleural effusions or pneumothorax. Mediastinum: Mediastinal contours appear normal. Heart size is enlarged. Bones and chest wall: No suspicious bony lesions. Overlying soft tissues appear unremarkable. IMPRESSION: No acute pulmonary process. Dictated by: Rosie Bauer M.D. on 09/19/2025 at 17:28 Approved by: Rosie Bauer M.D. on 09/19/2025 at 17:28
--- NOTE | 2025-09-19 17:28 | EKG_ITS ---
[address] [address] Test Date: 2025-09-19 Pat Name: Kenzie Maya Department: [facility] Room: Gender: Female Assistant Food Service Director: DHARA : 1960 Requested By: Order Number: [id number] Reading MD: Matthew Engel Measurements Intervals [place] Rate: 68 P: 15 TX: 148 QRS: 31 QRSD: 86 T: 45 QT: 396 QTc: 421 Interpretive Statements Normal sinus rhythm Electronically Signed On 09-24-2025 12:27:30 PST by Matthew Engel
[2025-09-19 17:29] LABS: Add Manual Diff / Slide Review NO; Hematocrit 37.2 % (36-46); Hemoglobin 12.1 g/dL (12.0-16.0); Lymphocytes Absolute Auto 1600 /uL (1100-4500); Mean Corpuscular HGB Conc 32.6 % (30-36); Mean Corpuscular Hemoglobin 27.7 PG (26-34); Mean Corpuscular Volume 85.0 fL (80-100); Platelet Count 280 X10^3/uL (150-400)
[2025-09-19 17:33] LABS: INR 1.0 (0.9-1.3); Prothrombin Time 11.8 SECONDS (9.4-12.5)
[2025-09-19 17:36] LABS: PTT Partial Thromboplastin Tim 31 SECONDS (25.1-36.5)
[2025-09-19 17:37] LABS: Alanine Aminotransferase 11 IU/L (<35); Albumin 3.8 g/dL (3.5-5.0); Albumin Globulin Ratio 1.1 (1.0-2.8); Alkaline Phosphatase 95 U/L (38-126); Blood Urea Nitrogen 24 mg/dL (7-17); Calcium 8.8 mg/dL (8.4-10.2); Carbon Dioxide 27 mmol/L (22-32); Chloride 109 mmol/L (98-107); Creatine Kinase 57 U/L (30-135); Estimated Glomerular Filt Rate 50 mL/min (>60); Globulin 3.4 g/dL (1.7-4.1); Glucose 118 mg/dL (70-99); HEMOLYSIS < 15 (0-50); Lipase 111 U/L (23-300); Magnesium 1.7 mg/dL (1.6-2.3); Potassium 4.7 mmol/L (3.4-5.1); Sodium 141 mmol/L (137-145); Total Protein 7.2 g/dL (6.3-8.2)
[2025-09-19 17:49] LABS: NT-proBNP (BNP-Adult 18+) 506 pg/mL (<125); Troponin I < 0.012 ng/mL (0.01-0.034)
[2025-09-19 20:19] LABS: Troponin I < 0.012 ng/mL (0.01-0.034)
[2025-09-19] MEDS: ASPIRIN 81 MG CHEW TAB 324 MG PO (21:48)
[2025-09-19 22:00] VITALS: PULSE 70; TEMP 36.8; O2SAT 98
[2025-09-19 22:01] VITALS: BP 186/83; PULSE 73; O2SAT 98
--- NOTE | 2025-09-19 22:04 | ED.EXTPRO ---
HPI - Extremity Problem General Chief complaint: Extremity Problem,Nontraumatic Stated complaint: R arm pn, swelling x 4days, elevated BP 168/80 Time Seen by Provider: 09/19/25 16:33 Source: patient, RN notes reviewed and old records reviewed Mode of arrival: Wheelchair Limitations: no limitations History of Present Illness HPI Narrative: 65-year-old female history of hypertension, diabetes on insulin, hypertension, chronic back pain, CKD who presents with complaint of right shoulder pain that has been going on off for 3 days. Patient also noted she sometimes has a right arm and leg swelling. She states that is been going on and off for a couple of months. She said sometimes her right leg will not fit as well. She denies any pain down her arm or her leg with it. She denies fevers or chills. She notes occasional chest pressure. Denies any shortness of breath currently but sometimes with exertion. She does not relate the shortness of breath with the chest discomfort. She denies any nausea or vomiting. No issues with bowel movements or urination. No redness, warmth or signs of infection in her extremities. She states she has chronic back pain but no new changes. Patient states she did have a cardiac workup with what sounds like a chemical stress test several months ago at [facility]. She states today she was at a scheduled appointment with her primary care physician and mentioned her symptoms and was told to come to the emergency department. She has had prior knee surgery. She states she has not allergy to IV iodine and develops hives. No tobacco, alcohol or recreational drugs. She notes her father when he is older had cardiac issues and heart attacks. Related Data Previous Rx's ?Medication ?Instructions ?Recorded TRUE METRIX STRIPS #400 ea 02/28/23 blood-glucose meter (True Metrix #1 ea 02/28/23 Glucose Meter) Disabled Parking Permint #1 ea 01/12/24 lorazepam 1 mg tablet 1 mg PO DAILY PRN sedation #10 tabs 03/30/24 blood sugar diagnostic (Advanced #100 ea 05/28/24 Glucose Meter Test Strips) lancets 33 gauge #100 ea 05/28/24 sumatriptan succinate 25 mg tablet See Rx Instructions .Route 06/24/24 .COMPLEX #42 tabs atorvastatin 20 mg tablet 20 mg PO BEDTIME #90 tabs 01/10/25 insulin aspart U-100 100 unit/mL 15 unit (0.15 mL) SUBCUT QAC #15 mL 01/10/25 (3 mL) subcutaneous pen (Novolog FlexPen U-100 Insulin aspart) naloxone 4 mg/actuation nasal spray 4 mg intranasal Q2M PRN opioid 01/10/25 overdose #2 ea lisinopril 20 mg tablet 20 mg PO DAILY #90 tabs 02/18/25 pen needle, diabetic 32 gauge x 1 ea miscellaneous TIDWMEAL #200 ea 02/18/25 insulin aspart 15 unit SUBCUT QAC #15 mL 02/21/25 (niacinamide)(U-100) 100 unit/mL(3 mL) subcutaneous pen (Fiasp FlexTouch U-100 Insulin) pen needle, diabetic 32 gauge x #200 ea 02/22/2510/25 (NovoFine Plus) insulin glargine 100 unit/mL (3 25 unit (0.25 mL) SUBCUT BID #15 mL 05/23/25 mL) subcutaneous pen (Basaglar KwikPen U-100 Insulin) hydroxyzine HCl 50 mg tablet 50 mg PO 4XD PRN for dizziness #60 07/15/25 tabs gabapentin 300 mg capsule 300 mg PO ONCE #90 caps 09/19/25 morphine 15 mg tablet,extended 15 mg PO Q12H #60 tabs 09/19/25 release morphine 15 mg tablet,extended 15 mg PO Q12H #60 tabs 09/19/25 release morphine 15 mg tablet,extended 15 mg PO Q12H #60 tabs 09/19/25 release oxycodone-acetaminophen 5 mg-325 1 tab PO BID PRN pain #60 tabs 09/19/25 mg tablet oxycodone-acetaminophen 5 mg-325 1 tab PO BID PRN pain #60 tabs 09/19/25 mg tablet oxycodone-acetaminophen 5 mg-325 1 tab PO BID PRN pain #60 tabs 09/19/25 mg tablet Allergies Allergy/AdvReac Type Severity Reaction Status Date / Time iodine (IODINE) Allergy Severe HIVES IV Verified 09/19/25 15:58 IODINE Review of Systems Review of Systems ROS Unobtainable: All systems reviewed & are unremarkable except as noted in HPI and below Patient History Medical History Orthopnea Leg edema Bronchitis Lumbar spondylosis Low back pain Nephrolithiasis Adhesive capsulitis of shoulder Migraines Shoulder pain Breast cancer (~2020) Degenerative disk disease Heartburn Allergies Vitamin D insufficiency History of GI bleed Chronic back pain History of migraine Eczema Postmenopausal Left shoulder pain Osteoarthritis Left knee pain Back pain DDD (degenerative disc disease), lumbar Morbid obesity Diabetes mellitus Surgical History History of total left knee replacement (TKR) History of ankle surgery History of delivery S/P tonsillectomy and adenoidectomy Hx of hernia repair S/P left oophorectomy Family History Father CAD (coronary artery disease) Other Diabetes mellitus Hypertension Morbid obesity Social History marital status: number of children: 5 household members: children lives independently: Yes occupational status: other Smoking Status: Former smoker alcohol intake: former substance use type: does not use and painkillers Smoking Status: Former smoker alcohol intake frequency: 0-2 drinks per day Exam Narrative Exam Narrative: GENERAL: Alert and oriented x three, female in mild distress HEENT: Head normocephalic, atraumatic, EOMI, pupils reactive, face symmetric, moist mucous membranes NECK: Supple, full range of motion CARDIOVASCULAR: Regular rate and rhythm without murmurs, rubs or gallops. Patient has a edema bilateral lower extremities appears equal in circumference. No warmth, erythema or skin changes. Nonpitting. RESPIRATORY: Breath sounds equal bilaterally, no wheezes rales or rhonchi. No tachypnea or accessory muscle use. ABDOMEN: Soft, nontender. Normoactive bowel sounds all 4 quadrants. No guarding or rebound, rigidity, no mass : No CVA tenderness EXTREMITIES: Normal range of motion, no clubbing or edema. No swelling appreciated comparison bilateral upper lower extremities. Full range of motion. Neurovascularly intact NEUROLOGICAL: Cranial nerves II through XII grossly intact. Moving all extremities SKIN: Warm, dry, no petechiae, no rashes or lesions. Initial Vital Signs Initial Vital Signs: Vital Signs Temperature 97.5 F L 09/19/25 16:28 Pulse Rate 77 09/19/25 16:28 Respiratory Rate 18 09/19/25 16:28 Blood Pressure 173/74 H 09/19/25 16:28 Pulse Oximetry 95 09/19/25 16:28 Oxygen Delivery Method Room Air 09/19/25 16:28 Course Orders Ordered: ED Orders 09/19/25 16:50 XR chest 1V Stat EKG-12 Lead Stat 09/19/25 17:20 Complete Blood Count AUTO DIFF Stat Comprehensive Metabolic Panel Stat Lipase Stat Magnesium Stat NT-proBNP (BNP-Adult 18+) Stat PTT Partial Thromboplastin Tanvir Stat Prothrombin Time INR Stat Troponin & CK Cardiac Panel Stat 09/19/25 19:36 Troponin I Stat Discontinued Medications Aspirin (Aspirin 81 Mg Chew Tab) 324 mg PO NOW ONE Stop: 09/19/25 16:50 Last Admin: 09/19/25 21:48 Dose: 324 mg Documented By: LISETTE Vital Signs Vital signs: Vital Signs - 8 hr 09/19/25 16:28 09/19/25 22:00 09/19/25 22:01 Temperature 97.5 F L 98.3 F Pulse Rate 77 70 Respiratory Rate 18 Blood Pressure 173/74 H 186/83 H Pulse Oximetry 95 98 Oxygen Delivery Method Room Air Room Air 09/19/25 22:01 09/19/25 22:30 09/19/25 22:31 Temperature Pulse Rate 73 68 Respiratory Rate 18 Blood Pressure 193/86 H Pulse Oximetry 98 98 Oxygen Delivery Method Room Air 09/19/25 22:31 Temperature Pulse Rate 69 Respiratory Rate 16 Blood Pressure Pulse Oximetry 97 Oxygen Delivery Method MDM - Extremity (Nontraumatic) Lab Data 09/19/25 17:20 09/19/25 17:20 Labs: Lab Results 09/19/25 09/19/25 Range/Units 17:20 19:36 WBC 6.5 (4.5-11.0) X10^3/uL RBC 4.38 (4.0-5.2) X10^6/uL Hgb 12.1 (12.0-16.0) g/dL Hct 37.2 (36-46) % MCV 85.0 (80-100) fL MCH 27.7 (26-34) PG MCHC 32.6 (30-36) % RDW 14.0 (11.6-14.8) % Plt Count 280 (150-400) X10^3/uL Neut % (Auto) 61.4 (50-75) % Lymph % (Auto) 24.1 L (25-40) % [place] % (Auto) 9.0 (3-14) % Eos % (Auto) 4.3 H (2-4) % Baso % (Auto) 1.2 (0-2) % Neut # (Auto) 4000 (5456-1099) /uL Lymph # (Auto) 1600 (4653-5268) /uL [place] # (Auto) 600 (0-900) /uL Eos # (Auto) 300 (0-450) /uL Baso # (Auto) 100 (0-100) /uL PT 11.8 (9.4-12.5) SECONDS INR 1.0 (0.9-1.3) APTT 31 (25.1-36.5) SECONDS Sodium 141 (137-145) mmol/L Potassium 4.7 (3.4-5.1) mmol/L Chloride 109 H (98-107) mmol/L Carbon Dioxide 27 (22-32) mmol/L BUN 24 H (7-17) mg/dL Creatinine 1.20 H (0.52-1.04) mg/dL Estimated GFR 50 L (>60) mL/min BUN/Creatinine Ratio 20.0 (6-22) Glucose 118 H (70-99) mg/dL Calcium 8.8 (8.4-10.2) mg/dL Magnesium 1.7 (1.6-2.3) mg/dL Total Bilirubin 0.5 (0.2-1.3) mg/dL AST 17 (14-36) IU/L ALT 11 (<35) IU/L Alkaline Phosphatase 95 (38-126) U/L Total Creatine Kinase 57 (30-135) U/L Troponin I < 0.012 < 0.012 (0.01-0.034) ng/mL NT-Pro-B Natriuret Pep 506 H (<125) pg/mL Total Protein 7.2 (6.3-8.2) g/dL Albumin 3.8 (3.5-5.0) g/dL Globulin 3.4 (1.7-4.1) g/dL Albumin/Globulin Ratio 1.1 (1.0-2.8) Lipase 111 (23-300) U/L Urine Dip Bedside Urine Glucose Negative Bedside Urine Bilirubin - Negative Bedside Urine Ketone - Negative Urine Specific [place] 1.015 Bedside Urine Occult Blood - Negative Bedside Urine pH 6.0 Bedside Urine Protein - Negative Bedside Urine Urobilinogen - Negative Bedside Urine Nitrite - Negative Bedside Urine Leukocytes - Negative Esterase MDM Narrative Medical decision making narrative: Labs show normal white count, hemoglobin and platelets, coags are negative, chloride 109 electrolytes are otherwise appropriate BUN 24 creatinine is 1.20 slightly elevated last was 1.13, glucose is 118, LFTs are normal troponins less than 0.012 with a repeat of less than 0.012 and a BNP of 506. Lipase is 111. Chest x-ray shows no acute pulmonary process. Sinus rhythm rate of 68 CT 148 QRS 86 QTC of [address]-elevation depression noted no prior for comparison here. Patient notes some intermittent swelling of her right upper and lower extremity on examination she appears to be equal at this time she notes that this has been going on and off for a couple of months but also noticed some right shoulder discomfort that she is not able to reproduce. She did have a cardiac workup a couple of months ago workup today does not show any obvious acute change does have what appears to be CKD. After discussion about obtaining ultrasound patient defers and we will follow up with primary care. Discharge Plan Departure Patient Disposition: Home Clinical Impression: Atypical chest pain Instructions: DI for Atypical Chest Pain Activity Restrictions/Additional Instructions: Please follow up with Dr. Benavides. Continue your home medications as prescribed. If you have new or recurrent symptoms please return to the emergency department if you have new chest or shoulder discomfort, increasing shortness of breath, any fevers, worsening swelling of your extremities, passing out, persistent vomiting or other new or concerning changes. Prescriptions: No Action (DME) blood-glucose meter [True Metrix Glucose Meter] Misc See Rx Instructions .ROUTE .COMPLEX Qty: 1 0RF Dose Instruction: DIRECTED Rx Instructions: DIRECTED (DME) TRUE METRIX STRIPS Qty: 400 3RF Dose Instruction: As directed Rx Instructions: USE TO CHECK BLOOD SUGAR FOUR TIMES A DAY DUE TO ADDITION OF SLIDING SCALE INSULIN sumatriptan succinate 25 mg tablet See Rx Instructions .ROUTE .COMPLEX Qty: 42 3RF Dose Instruction: TAKE 1/2 TO 1 TABLET BY MOUTH DAILY AT ONSET OF HEADACHE Rx Instructions: TAKE 1/2 TO 1 TABLET BY MOUTH DAILY AT ONSET OF HEADACHE Fiasp FlexTouch U-100 Insulin 100 unit/mL (3 mL) insulin pen 15 unit SUBCUT QAC Qty: 15 2RF Patient Comments: 1/2 dose Rx Instructions: use in place of novolog (DME) NovoFine Plus 32 gauge x 1/6 needle See Rx Instructions .ROUTE .MEDSUPPLY Qty: 200 3RF Rx Instructions: Use with insulin pen Basaglar KwikPen U-100 Insulin 100 unit/mL (3 mL) insulin pen 25 unit SUBCUT BID Qty: 15 6RF hydroxyzine HCl 50 mg tablet 50 mg PO 4XD PRN (Reason: for dizziness) Qty: 60 2RF (DME) lancets 33 gauge misc See Rx Instructions .Route Qty: 100 6RF Rx Instructions: Use to check blood sugars BID (DME) Advanced Gluc Meter Test Strip Strip See Rx Instructions .Route Qty: 100 4RF Rx Instructions: use to test blood sugars BID lisinopril 20 mg tablet 20 mg PO DAILY Qty: 90 3RF pen needle, diabetic 32 gauge x 5/32 needle 1 ea miscellaneous TIDWMEAL Qty: 200 4RF Rx Instructions: use to inject insulin with insulin pens, with each meal (DME) Disabled Parking Permint See Rx Instructions .ROUTE .MEDSUPPLY Qty: 1 0RF Rx Instructions: I find this patient to be medically disabled and qualified for Disabled Parking as indicated and signed on the Accompanying Disabled Parking Application for individuals. lorazepam 1 mg tablet 1 mg PO DAILY PRN (Reason: sedation) Qty: 10 0RF Rx Instructions: may repeat in 30 min if needed atorvastatin 20 mg tablet 20 mg PO BEDTIME Qty: 90 3RF insulin aspart U-100 [Novolog FlexPen U-100 Insulin] 100 unit/mL (3 mL) insulin pen 15 unit SUBCUT QAC Qty: 15 1RF Rx Instructions: Fiasp is on back order naloxone 4 mg/actuation spray,non-aerosol 4 mg intranasal Q2M PRN (Reason: opioid overdose) Qty: 2 1RF Rx Instructions: spray 1 dose into ONE nostril; alternate nostrils w each dose until help arrives morphine 15 mg tablet extended release 15 mg PO Q12H Qty: 60 0RF Rx Instructions: Refilled 2 morphine 15 mg tablet extended release 15 mg PO Q12H Qty: 60 0RF Rx Instructions: Exempt morphine 15 mg tablet extended release 15 mg PO Q12H Qty: 60 0RF Rx Instructions: Refill 3 Exempt oxycodone-acetaminophen 5-325 mg tablet 1 tab PO BID PRN (Reason: pain) Qty: 60 0RF oxycodone-acetaminophen 5-325 mg tablet 1 tab PO BID PRN (Reason: pain) Qty: 60 0RF Rx Instructions: Refilled 2 oxycodone-acetaminophen 5-325 mg tablet 1 tab PO BID PRN (Reason: pain) Qty: 60 0RF Rx Instructions: Refill 3 gabapentin 300 mg capsule 300 mg PO ONCE Qty: 90 1RF Referrals: Maged Benavides DO [Primary Care Provider, Family Practice] Stand Alone Forms: Patient Portal/API
[2025-09-19 22:30] VITALS: PULSE 68; RESP 18; O2SAT 98
[2025-09-19 22:31] VITALS: BP 193/86; PULSE 69; RESP 16; O2SAT 97
== END 2025-09-19 22:38 | disposition home or self-care (01) ==
PROVIDERS: Student in an Organized Health Care Education/Training Program; Emergency Provider Emergency Medicine; PCP Family Medicine
DX: R07.89 Other chest pain (principal); M25.511 Pain in right shoulder; M79.89 Other specified soft tissue disorders; Z87.891 Personal history of nicotine dependence; Z82.49 Family history of ischemic heart disease and other diseases of the circulatory system
CPT/HCPCS: 71045; 80053; 81003; 82550; 83690; 83735; 83880; 84484; 85025; 85610; 85730; 93005; 99283; 99284